=== PATIENT | female | born 1940 | race Caucasian/White ===

== ENCOUNTER 2023-05-16 07:25 | Emergency (ER) | payer OTHER, SELFPAY ==
[2023-05-16 07:29] VITALS: BP 150/74; PULSE 81; RESP 18; TEMP 36.8; O2SAT 97; BMI 23.8
--- NOTE | 2023-05-16 07:35 | XR_ITS ---
The [address] [address] Patient Name: LILLIANA MARQUEZTER MRN: [id number] date: 1940 Sex: F Assigned Patient Location: ER Current Patient Location: ER Accession/Order Number: [id number] Exam Date: 05/16/2023 07:50 Report Date: 05/16/2023 08:17 At the request of: RIVAS PADILLA Procedure: XR foot RT min 3V PROCEDURE: XR foot RT min 3V DATE: 05/16/2023 6:50 AM CDT COMPARISONS: None CLINICAL INDICATION: fall, foot injury FINDINGS: There is an irregular, essentially nondisplaced transverse fracture of the base of fifth metatarsal.. XR/XR foot RT min 3V IMPRESSION: Findings consistent with an essentially nondisplaced base of the fifth metatarsal fracture. . Electronically authenticated by: ROSALINO HOWE Date: 05/16/2023 08:17
--- NOTE | 2023-05-16 07:35 | XR_ITS ---
The [address] [address] Patient Name: LILLIANA BELL MRN: [id number] date: 1940 Sex: F Assigned Patient Location: ER Current Patient Location: ER Accession/Order Number: [id number] Exam Date: 05/16/2023 07:50 Report Date: 05/16/2023 08:15 At the request of: RIVAS PADILLA Procedure: XR ankle RT min 3V PROCEDURE: XR ankle RT min 3V DATE: 05/16/2023 6:50 AM CDT COMPARISONS: None CLINICAL INDICATION: fall, ankle injury FINDINGS: There is no evidence of fractures of the ankle. The ankle mortise is intact. There is no evidence of ankle joint effusion On the caudal aspect of these images there is noted a transverse lucency of the base of the fifth metatarsal. This is consistent with basilar fifth metatarsal fracture. XR/XR ankle RT min 3V IMPRESSION: Right ankle radiographs show no abnormalities Based of the fifth metatarsal fracture.. Electronically authenticated by: ROSALINO HOWE Date: 05/16/2023 08:15
--- NOTE | 2023-05-16 07:51 | XR_ITS ---
The [address] [address] Patient Name: LILLIANA BELL MRN: [id number] date: 1940 Sex: F Assigned Patient Location: ER Current Patient Location: ER Accession/Order Number: [id number] Exam Date: 05/16/2023 07:50 Report Date: 05/16/2023 08:20 At the request of: RIVAS PADILLA Procedure: XR knee LT 4V PROCEDURE: XR knee LT 4V DATE: 05/16/2023 6:50 AM CDT COMPARISONS: None CLINICAL INDICATION: FALL FINDINGS: There is no evidence of fractures or other acute osseous abnormalities. There is minimal tricompartmental spurring likely representing minimal left knee degenerative changes. There is no left knee joint effusion. There is slight chondrocalcinosis probably related to degenerative changes. There is slight soft tissue prominence anterior aspect of the knee including anterior to the infrapatellar tendon possibly related to recent trauma. XR/XR knee LT 4V IMPRESSION: Left knee radiographs show no evidence of acute osseous abnormalities. Electronically authenticated by: ROSALINO HOWE Date: 05/16/2023 08:20
[2023-05-16] MEDS: ACETAMINOPHEN 500 MG TABLET 1000 MG PO (08:07)
--- NOTE | 2023-05-16 08:28 | ED.LOWEXI1 ---
HPI - Extremity Injury (Lower) General Chief Complaint: Extremity Injury, Lower Stated Complaint: FELL AND WORRIED ABOUT RT ANKLE Time Seen by Provider: 05/16/23 07:35 Source: patient Mode of arrival: Wheelchair Limitations: no limitations History of Present Illness HPI Narrative: patient tripped and fell yesterday and injured her left knee, right ankle/foot. Nothing taken this morning for pain. No head or neck injury. No LOC. No complaint of back or torso pain. She is most concerned about the right ankle. She also had some mid abdominal discomfort last night but is pain-free now Related Data Allergies Allergy/AdvReac Type Severity Reaction Status Date / Time latex Allergy Unknown Verified 05/16/23 07:36 PFSH PFS Social History Smoking status: Never smoker Exam Narrative Exam Narrative: Nurses note and vital signs reviewed and patient is not hypoxic. afebrile General: The patient appears well and in no apparent distress. Patient is resting comfortably on cart. GCS = 15. Skin: Warm, dry, no pallor noted. Head: Normocephalic, atraumatic Neck: Supple, trachea mid-line. Full ROM and no cervical spinal tenderness. Eyes: PERRLA, EOMI ENT: no oral or facial injury Cardiovascular: Regular Rate and Rhythm Respiratory: Patient is in no distress, no accessory muscle use, lungs are clear to auscultation, no wheezing, rales or rhonchi Chest Wall: no tenderness, no flail chest, contusion, abrasion, or signs of trauma. Back: No thoracic or lumbar tenderness to palpation. Musculoskeletal: Tenderness, swelling and ecchymosis to the left knee at the patella. Pain with patellar manipulation. The remainder of the left knee if unremarkable. Right ankle swelling and tenderness with some ecchymosis to the anterolateral aspect of the joint. Tenderness along the right 5th metatarsal. No ecchymosis or deformity noted there. No mid-foot tenderness. Normal right heel and achilles. No hip/pelvis tenderness, no UE tenderness or swelling. Pulses at femoral, DP, PT, and popliteal were 2+ bilaterally. Moves all extremities in all modalities with expected strength. GI: No ecchymosis, no tenderness to palpation, no masses appreciated. No rebound, guarding, or rigidity noted. Neurological: A&O x4, normal equal electrotype servicer strength, normal finger to nose, normal speech, normal coordination, normal motor, normal sensory. Psychiatric: Cooperative Constitutional Vital Signs, click to edit/add: Last Vital Signs Temp 98.3 F 05/16/23 07:29 Pulse 81 05/16/23 07:29 Resp 18 05/16/23 07:29 BP 150/74 H 05/16/23 07:29 Pulse Ox 97 05/16/23 07:29 O2 Del Method Room Air 05/16/23 07:29 Course Vital Signs Vital signs: Vital Signs Temperature 98.3 F 05/16/23 07:29 Pulse Rate 81 05/16/23 07:29 Respiratory Rate 18 05/16/23 07:29 Blood Pressure 150/74 H 05/16/23 07:29 Pulse Oximetry 97 05/16/23 07:29 Oxygen Delivery Method Room Air 05/16/23 07:29 Temperature 98.3 F 05/16/23 07:29 Pulse Rate 81 05/16/23 07:29 Respiratory Rate 18 05/16/23 07:29 Blood Pressure 150/74 H 05/16/23 07:29 Pulse Oximetry 97 05/16/23 07:29 Oxygen Delivery Method Room Air 05/16/23 07:29 MDM - Extremity Injury (Lower) MDM Narrative Medical decision making narrative: Patient has fracture of the base of the right 5th metatarsal. Ankle and left knee x-rays otherwise negative. ED nurse applied a CAM boot to the patient's right foot/ankle/lower leg. Patient neurovascularly intact afterward. She was referred to Dr Strong for follow up. Tylenol recommended for pain due to her age. Imaging Data left knee xr: Radiologist's impression: Patient Name: LILLIANA BELL MRN: [id number] date: 1940 Sex: F Assigned Patient Location: ER Current Patient Location: ER Accession/Order Number: [id number] Exam Date: 05/16/2023 07:50 Report Date: 05/16/2023 08:20 At the request of: RIVAS PADILLA Procedure: XR knee LT 4V PROCEDURE: XR knee LT 4V DATE: 05/16/2023 6:50 AM CDT COMPARISONS: None CLINICAL INDICATION: FALL FINDINGS: There is no evidence of fractures or other acute osseous abnormalities. There is minimal tricompartmental spurring likely representing minimal left knee degenerative changes. There is no left knee joint effusion. There is slight chondrocalcinosis probably related to degenerative changes. There is slight soft tissue prominence anterior aspect of the knee including anterior to the infrapatellar tendon possibly related to recent trauma. IMPRESSION: Left knee radiographs show no evidence of acute osseous abnormalities. Electronically authenticated by: ROSALINO HOWE Date: 05/16/2023 08:20 xr right ankle: Radiologist's impression: Patient Name: LILLIANA BELL MRN: [facility]:[id number] date: 1940 Sex: F Assigned Patient Location: ER Current Patient Location: ER Accession/Order Number: [id number] Exam Date: 05/16/2023 07:50 Report Date: 05/16/2023 08:15 At the request of: RIVAS PADILLA Procedure: XR ankle RT min 3V PROCEDURE: XR ankle RT min 3V DATE: 05/16/2023 6:50 AM CDT COMPARISONS: None CLINICAL INDICATION: fall, ankle injury FINDINGS: There is no evidence of fractures of the ankle. The ankle mortise is intact. There is no evidence of ankle joint effusion On the caudal aspect of these images there is noted a transverse lucency of the base of the fifth metatarsal. This is consistent with basilar fifth metatarsal fracture. IMPRESSION: Right ankle radiographs show no abnormalities Based of the fifth metatarsal fracture.. Electronically authenticated by: ROSALINO HOWE Date: 05/16/2023 08:15 xr right foot: Radiologist's impression: Patient Name: LILLIANA BELL MRN: [facility]:[id number] date: 1940 Sex: F Assigned Patient Location: ER Current Patient Location: ER Accession/Order Number: [id number] Exam Date: 05/16/2023 07:50 Report Date: 05/16/2023 08:17 At the request of: RIVAS PADILLA Procedure: XR foot RT min 3V PROCEDURE: XR foot RT min 3V DATE: 05/16/2023 6:50 AM CDT COMPARISONS: None CLINICAL INDICATION: fall, foot injury FINDINGS: There is an irregular, essentially nondisplaced transverse fracture of the base of fifth metatarsal.. IMPRESSION: Findings consistent with an essentially nondisplaced base of the fifth metatarsal fracture. . Electronically authenticated by: ROSALINO HOWE Date: 05/16/2023 08:17 Discharge Plan Discharge Chief Complaint: Extremity Injury, Lower Clinical Impression: Closed fracture of base of fifth metatarsal bone of right foot, Contusion of knee, left, Sprain of ankle, right Patient Disposition: Home, Self-Care Time of Disposition Decision: 08:31 Mode of Transportation: Private Vehicle Instructions: Ankle Sprain (ED), Foot Fracture in Adults (ED), Contusion in Adults (ED), P.R.I.C.E. Treatment (ED) Stand Alone Forms: Portal Instructions Referrals: Jeffery Strong DPM [Physician] - As soon as possible
== END 2023-05-16 08:47 | disposition home or self-care (01) ==
PROVIDERS: Emergency Provider Emergency Medicine; PCP Family Medicine
DX: S92.351A Displaced fracture of fifth metatarsal bone, right foot, initial encounter for closed fracture (principal); S93.401A Sprain of unspecified ligament of right ankle, initial encounter; S80.02XA Contusion of left knee, initial encounter; W01.0XXA Fall on same level from slipping, tripping and stumbling without subsequent striking against object, initial encounter
CPT/HCPCS: 73564; 73610; 73630; 99284

== ENCOUNTER 2023-06-09 10:20 | Outpatient (OUT) | payer OTHER, SELFPAY ==
--- NOTE | 2023-06-09 | XR_ITS ---
The [address] [address] Patient Name: LILLIANA MARQUEZTER MRN: [id number] date: 1940 Sex: F Assigned Patient Location: [facility] Current Patient Location: [facility] Accession/Order Number: [id number] Exam Date: 06/09/2023 10:30 Report Date: 06/09/2023 13:31 At the request of: ISAURO TITUS Procedure: XR ankle RT min 3V PROCEDURE: XR ankle RT min 3V DATE: 06/09/2023 9:30 AM CDT COMPARISONS: 05/16/2023. CLINICAL INDICATION: RIGHT ANKLE PAIN FINDINGS: There is no evidence of fractures or other osseous abnormalities of the ankle. Slightly distracted base of the fifth metatarsal fracture is again identified. Ankle mortise is intact. XR/XR ankle RT min 3V IMPRESSION: Right ankle radiographs are stable from previous exam Electronically authenticated by: ROSALINO HOWE Date: 06/09/2023 13:31
--- NOTE | 2023-06-09 | XR_ITS ---
The [address] [address] Patient Name: LILLIANA MARQUEZTER MRN: [id number] date: 1940 Sex: F Assigned Patient Location: [facility] Current Patient Location: [facility] Accession/Order Number: [id number] Exam Date: 06/09/2023 10:30 Report Date: 06/09/2023 13:29 At the request of: ISAURO TITUS Procedure: XR foot RT min 3V PROCEDURE: XR foot RT min 3V DATE: 06/09/2023 9:30 AM CDT COMPARISONS: 05/16/2023 CLINICAL INDICATION: RIGHT FOOT PAIN FINDINGS: The irregular essentially nondisplaced transverse fracture base of the fifth metatarsal is again identified. The fracture site is slightly more widened than on previous exam. I estimate approximately 2 mm of distraction where as there was only 1 mm distraction previously. There is no displacement at the fracture site. There is no definite callus formation identified. XR/XR foot RT min 3V IMPRESSION: The fracture site is slightly more distracted on today's exam than on previous exam with no definite callus formation identified. No other abnormalities and no other new abnormalities identified. Electronically authenticated by: ROSALINO HOWE Date: 06/09/2023 13:29
== END 2023-06-09 10:21 | disposition home or self-care (01) ==
LOC: RAD 10:20
PROVIDERS: PCP Physician Assistant; Visit Provider Podiatrist Foot & Ankle Surgery
DX: S92.354A Nondisplaced fracture of fifth metatarsal bone, right foot, initial encounter for closed fracture (principal); M25.571 Pain in right ankle and joints of right foot
CPT/HCPCS: 73610; 73630

== ENCOUNTER 2023-06-30 13:45 | Outpatient (OUT) | payer OTHER, SELFPAY ==
--- NOTE | 2023-06-30 | XR_ITS ---
The [address] [address] Patient Name: LILLIANA Pineda RAY MRN: [id number] date: 1940 Sex: F Assigned Patient Location: [facility] Current Patient Location: RAD Accession/Order Number: [id number] Exam Date: 06/30/2023 10:22 Report Date: 06/30/2023 11:13 At the request of: DEBBIE RODRIGUEZ Procedure: XR ankle RT min 3V STUDY: XR ankle RT min 3V, XR foot RT min 3V, [id number], [id number] HISTORY: LEFT ANKLE PAIN COMPARISON: Right ankle and foot x-rays 06/09/2023. FINDINGS: Mildly distracted avulsion-type transverse fracture of the base of the right fifth metatarsal demonstrates proximally 2.4 mm of distraction (as measured on the lateral view), similar compared with 06/09/2023. There has been slight increased callus formation compared with the prior exam. No new or worsening osseous abnormality. An accessory navicular is present. No lucent lesion of the talar dome. XR/XR ankle RT min 3V IMPRESSION: Slight increased callus formation about the mildly distracted right fifth metatarsal fracture. Degree of distraction is similar. Electronically authenticated by: GEOVANNY BRYANT Date: 06/30/2023 11:13
--- NOTE | 2023-06-30 | XR_ITS ---
The [address] [address] Patient Name: LILLIANA Pineda RAY MRN: [id number] date: 1940 Sex: F Assigned Patient Location: [facility] Current Patient Location: RAD Accession/Order Number: [id number] Exam Date: 06/30/2023 10:22 Report Date: 06/30/2023 11:13 At the request of: DEBBIE RODRIGUEZ Procedure: XR foot RT min 3V STUDY: XR ankle RT min 3V, XR foot RT min 3V, [id number], [id number] HISTORY: LEFT ANKLE PAIN COMPARISON: Right ankle and foot x-rays 06/09/2023. FINDINGS: Mildly distracted avulsion-type transverse fracture of the base of the right fifth metatarsal demonstrates proximally 2.4 mm of distraction (as measured on the lateral view), similar compared with 06/09/2023. There has been slight increased callus formation compared with the prior exam. No new or worsening osseous abnormality. An accessory navicular is present. No lucent lesion of the talar dome. XR/XR foot RT min 3V IMPRESSION: Slight increased callus formation about the mildly distracted right fifth metatarsal fracture. Degree of distraction is similar. Electronically authenticated by: GEOVANNY BRYANT Date: 06/30/2023 11:13
== END 2023-06-30 13:46 | disposition home or self-care (01) ==
LOC: RAD 13:45
PROVIDERS: Visit Provider Podiatrist Foot & Ankle Surgery
DX: S92.354A Nondisplaced fracture of fifth metatarsal bone, right foot, initial encounter for closed fracture (principal); M25.579 Pain in unspecified ankle and joints of unspecified foot
CPT/HCPCS: 73610; 73630

== ENCOUNTER 2023-07-28 10:03 | Outpatient (OUT) | payer OTHER, SELFPAY ==
--- NOTE | 2023-07-28 | XR_ITS ---
The [address] [address] Patient Name: LILLIANA MARQUEZTER MRN: [id number] date: 1940 Sex: F Assigned Patient Location: [facility] Current Patient Location: Accession/Order Number: [id number] Exam Date: 07/28/2023 10:05 Report Date: 07/29/2023 10:26 At the request of: ISAURO TITUS Procedure: XR foot RT min 3V PROCEDURE: XR foot RT min 3V HISTORY: RIGHT FOOT PAIN COMPARISON: XR foot right 06/30/2023, 05/16/2023 FINDINGS: BONES:Persistent fracture line at base of fifth metatarsal without callus formation or significant increase in density. Minimal distraction, but otherwise normal alignment is maintained. SOFT TISSUES:No visible soft tissue swelling. EFFUSION:None visible. OTHER: Negative. XR/XR foot RT min 3V IMPRESSION: 1. Stable appearance of the base of fifth metatarsal fracture with incomplete osseous healing; suspect very slow ossification of the fracture line. Electronically authenticated by: ZOYA MATSON Date: 07/29/2023 10:26
== END 2023-07-28 10:04 | disposition home or self-care (01) ==
LOC: RAD 10:03
PROVIDERS: Visit Provider Podiatrist Foot & Ankle Surgery
DX: M79.671 Pain in right foot (principal); S92.351D Displaced fracture of fifth metatarsal bone, right foot, subsequent encounter for fracture with routine healing
CPT/HCPCS: 73630

== ENCOUNTER 2025-01-01 14:28 | Outpatient (OUT) | payer OTHER, SELFPAY ==
[2025-01-01 15:10] LABS: Albumin Level 4.3 g/dL (3.4-5.0); Anion Gap 13.6; BUN Creatinine Ratio 26.3; Calcium 9.2 mg/dL (8.5-10.1); Carbon Dioxide 28.8 mmol/L (21.0-32.0); Chloride 101 mmol/L (98-107); Estimated GFR (African America 53 (>=60 mL/min/1.73m^2); Estimated GFR (Non-African Ame 44 (>=60 mL/min/1.73m^2); Glucose 111 mg/dL (74-106); Phosphorus 3.3 mg/dL (2.6-4.7); Potassium 4.4 mmol/L (3.5-5.1); Sodium 139 mmol/L (136-145)
== END 2025-01-01 14:29 | disposition home or self-care (01) ==
PROVIDERS: PCP Family Medicine; Visit Provider Internal Medicine
DX: M81.0 Age-related osteoporosis without current pathological fracture (principal); E55.9 Vitamin D deficiency, unspecified
CPT/HCPCS: 36415; 80069; 82306

== ENCOUNTER 2025-06-28 08:52 | Outpatient (RCR) | payer MEDICARE, SELFPAY | END 2025-07-24 07:01 | disposition home or self-care (01) | LOC: PT 08:52 | PROVIDERS: PCP Family Medicine; Visit Provider Family Medicine | DX: R26.89 Other abnormalities of gait and mobility (principal) | CPT/HCPCS: 97110; 97112; 97162; 97530 ==

== ENCOUNTER 2025-08-07 09:50 | Outpatient (OUT) | payer MEDICARE, SELFPAY ==
--- OUTSIDE RECORDS SUMMARY | 2025-08-01 03:50 | XMS_ITS | Continuity of Care Document ---
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 Role Phone Abiel Davison DO Primary Care Provider [phone] Abiel Davison DO Attending Provider Maxim Vela MD Attending Provider Maxim Vela MD Referring Provider Care Teams Patient Care Team Team Status: Active Member Role/Relationship Status Dates Abiel Davison DO Primary Care Provider Active Visit Care Team Team Status: Inactive Member Role/Relationship Status Dates Abiel Davison DO Primary Care Provider Active S tart: May 03, 2025 End: May 03, 2025DaHarish Zheng ProviderActiveStart: May 03, 2025 End: May 03, 2025 Visit Care Team Team Status: Inactive Member Role/Relationship Status Dates Abiel Davison DO Primary Care Provider Active S tart: May 10, 2025 End: May 10, 2025Harish Johnson ProviderActiveStart: May 10, 2025 End: May 10, 2025 Visit Care Team Team Status: Inactive Member Role/Relationship Status Idalmis Davison DO Primary Care Provider Active S tart: July 10, 2025 End: July 10hmMarilu Simental ProviderActiveStart: July 10, 2025 End: July 10, 2025 Visit Care Team Team Status: Active Member Role/Relationship Status Idalmis Davison DO Primary Care Provider Active S tart: July 31, 2025 Marystefanie Sanchzegh MDAttending ProviderActiveStart: July 31, 2025 JustinaQuique Dorado ProviderActiveStart: July 31, 2025 Patient Care Team Team Status: Inactive Member Role/Relationship Status Dates Abiel Davison DO Primary Care Provider Active S tart: August 01, 2025 End: August 01, 2025Daraulito Davison DOAttyanet ProviderActiveStart: August 01, 2025 End: August 01, 2025 Chief Complaint and Reason for Visit Chief Complaint Admit Date r35.1 e53.8 z79.899 e78.5 r35.1 r63.5 r7 3.9 May 03, 2025 8:16am review labs May 10, 2025 10: 18am See order July 10, 2025 7: 44am M81.0 July 31, 2025 1 0:08am elevated BP August 01, 2025 8 :02am Reason for Visit Admit Date Balance disorder May 10, 2025 10: 18am Depression May 10, 2025 10: 18am Hypercalcemia May 10, 2025 10: 18am Hyperglycemia May 10, 2025 10: 18am Hyperlipidemia May 10, 2025 10: 18am Hypertension May 10, 2025 10: 18am Osteoporosis May 10, 2025 10: 18am Other abnormal blood chemistry May 10:18am Vitamin B12 deficiency May 10, 2025 10:18am Balance disorder August 01, 2025 8 :02am Hypertension August 01, 2025 8 :02am Irritable bowel syndrome with diarrhea O ctober 2024 8:02am Osteoporosis August 01, 2025 8 :02am Allergies, Adverse Reactions, Alerts Allergen Type Severity Reaction Last Updated Verified Status amoxicillin Allergy Unknown rash on abdomen August 01, 2025 8:05am Yes Active clavulanic acid Allergy Unknown rash on abdomen Octo keren 2024 8:05am Yes Active latex Allergy Unknown Rash, ? potenti al allergy August 01, 2025 8:05am Yes Active lidocaine Allergy Unknown eye's swelled shut Octobe r 2024 8:05am Yes Active Penicillins Allergy Unknown rash August 01, 2025 8:05am Yes Active Social History Smoking Status Status Start Date End Date Date of Observa tion Ex-smoker (finding) May 10, 2025 10:25am Observation Status Observation Response Date of Response Legal Sex Female (finding) [facility] 1940 Family History Relationship Condition Age at Onset Recorded Date/T tom mother Polyp of colon Unknown sisterPolyp of colonUnknowngrandparentDeceasedUnknowngrandparentDeceasedUnknown grandparentDeceasedUnknowngrandparentDeceasedUnknownmotherHistory of stroke UnknownDeceasedUnknownsisterPolyp of colonUnknown Problems Active Problems Problem Diagnosis/Recorded Date Onset Date Stat us Dizziness April 27, 2024 10:19am Unknown Acti ve Light-headed feeling April 27, 2024 10:15am Unknown Active Vitamin B12 deficiency April 27, 2024 9:54am Unknown Active Osteoporosis April 26, 2024 3:13pm Unknown Activ e Depression April 26, 2024 3:13pm Unknown Activ e Diarrhea October 25, 2024 2:35pm Unknown Ac tive Hyperglycemia April 27, 2024 9:54am Unknown Acti ve Hyperlipidemia April 26, 2024 3:13pm Unknown Act leeann Intermittent abdominal pain October 25, 2024 2:35pm Unknown Active Microscopic colitis October 25, 2024 4:13pm Unknown Active Other abnormal blood chemistry May 10, 2025 10:50a m Unknown Active Irritable bowel syndrome with diarrhea April 26, 2024 3:15pm Unknown Active Balance disorder May 10, 2025 10:34am Unknown Active Encounter for long-term (cur rent) use of other medications May 19, 2024 9:41am Unknown Active Hypertension May 22, 2022 11:01am Unknown Ac tive Constipation June 19, 2024 9:46am Unknown Active Vitamin D deficiency April 26, 2024 3:13pm Unknown Active Hypercalcemia May 10, 2025 10:37am Unknown Ac tive Medications Medication Status Dose Units Route Directions Qty Days Refills S tart Date Stop Date End Date Reason(s) Instructions Adherence Terbinafine Hcl 250 mg tablet Discontinued 250 MG PO Daily 30 0March 2023 12:00amJuly 2023 9:43amSertraline 50 mg tablet Discontinued0.ROUTE.FPKFNGC956Vwy 2023 9:28amDecember 2023 10:18am TAKE ONE TABLET BY MOUTH ONCE DAILYAtorvastatin 10 mg kkhshoKqgknzfyvnql23RZWV Wnzpg12447Dlqy 2023 9:52amMarch 2024 12:05pmLisinopril 20 mg tablet Oklnou84IVSJQwtws290Lyuykqd 2023 10:48amComplies with drug therapy Sertraline 50 mg tabletDiscontinued0.ROUTE.OIVMLGU305Zxhjaxkh 11th, 2024 10:18am June 21, 2025 10:17amTAKE ONE TABLET BY MOUTH ONCE DAILYAtorvastatin 10 mg ysrdmbVxsuwc18BEYJ.TIDRJMC26257Wwjng 2024 12:04pm10 mg orally three days a week;Complies with drug therapySertraline 50 mg tabletDiscontinued0.ROUTE .XXZZQFQ853Lydfdvedd 18th, 2025 10:17amOctober 2024 8:25amTAKE ONE TABLET BY MOUTH ONCE DAILYAtorvastatin 10 mg noolaiFvctrlksjqmo38FZQJWlzgpEhjbat 2021 12:00amJuly 2023 9:52amLisinopril 10 mg eqcjvpGaswjrytzzgh77MSUIYesvc May 22, 2022 12:00amJuly 2023 10:03amSertraline 50 mg tablet Rqptkukjhvrg34UTUZVtgsoIwwiag 2021 12:00amMay 2023 9:28am Cyanocobalamin (Vitamin B-12) 5,000 mcg yerkzxpFgslbnrobtbw2788TMJUZNawomJazx 2023 12:00amJuly 2023 10:09amvitamin d 3ActivePOJuly 2023 12:00amComplies with drug therapyelderberryActivePOJuly 2023 12:00am Complies with drug therapyCalcium Phosphate-Vitamin D3 250 mg-10 mcg (400 unit) tablet,chewableDiscontinuedTABPOAs DirectedJuly 2023 12:00amOctober 2024 8:19amFreeTextSig: as directed Orally; Note: Source Status: Taking; Provider: Saman Beebe ( )Lisinopril 20 mg jwyxjuUfehsxzdcsob09ZD LZExqty592Dngh 2023 12:00amOctober 2023 10:48amCyanocobalamin (Vitamin B-12) 5,000 mcg zxydfemPabgwcedeyba1994FDOZS.COMPLEXJuly 2023 10:09amJanuary 2024 10:32amtake B12 three days a weekCholecalciferol (Vitamin D3) 125 mcg (5,000 unit) cxtfyltLbdqwv055PANWCWpsqzWboemvd 2024 12:00amComplies with drug therapyCyanocobalamin (Vitamin B-12) 5,000 mcg capsule Lxdmyn0086JGUZN.COMPLEXOctober 2024 8:17am5,000 mcg orally take B12 5 days a weekComplies with drug therapyInulin (Fiber Gummies) 1.7 gram tablet,chewable ActiveGMPOOctober 2024 12:00amComplies with drug therapySertraline 50 mg tkopfhQmpidt86TSUWJvvcyTwsqsnj 2024 8:25amUnknownDicyclomine 20 mg tablet Luqjvu48PEGRTszi580569Kkqfbgv 2024 1:00amComplies with drug therapy Cyanocobalamin (Vitamin B-12) 5,000 mcg iogpistTjzwxirtxamy3322ZTDRU.NNFORWH575 May 10, 2025 10:54amOctober 2024 8:19am5,000 mcg orally take B12 every other day; Immunizations Immunization Event Date Not Given Reason Dose Number 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 Number Reason(s) Given Vaccine Information Statement (VIS) Detail Administration Location COVID-19 mRNA, Comirnaty ([employer]) October 31, 2020 COVID-19 mRNA, Comirnaty ([employer])November 21OVID mRNA, Comirnaty ([employer])July 10OVID19 mRNA, Comirnaty ([employer])March 03OVI Comirnaty ([employer]) Tri-Sucrose +March 03 mRNA Bivalent Booster ([employer])July 09OVID-19 (PFIZER) 12Y and olderSeptember OVID-19 (PFIZER) 12Y and olderSeptember 2023Fluzone TIV High-Dose 65YR+July 03, 2024Fluzone QIV High-Dose 65YR+June 18, 2021Fluzone QIV High-Dose 65YR+July 09, 2022Influenza, trivalent July 16, 2020Influenza vaccine, quadrivalent, adjuvantedSeptember neumococcal Conjugate Vaccine, 13 valentSeptember 2015Pneumococcal Polysacc. Vaccine, 23 valentOctober 2014Quadrivalent InfluenzaNovember 2014RSV, preF3, adj, pfNovember 2022Tetanus, Diphtheria adult, 5 Lf pres free absNov2012Tetanus, Diphtheria adult, 5 Lf pres free abs December 23, 2022Tetanus, Diphtheria, Pertussis (Tdap)August 30, 2013 Trivalent Influenza VaccineSeptember 2015Trivalent Influenza Vaccine August 03, 2019Trivalent Influenza VaccineOctober 2019Trivalent Influenza VaccineSeptember 2020 Procedures Procedure Date Performed Status Urine Culture May 03, 2025 completed Relevant Diagnostic Tests and/or Laboratory Data Laboratory Results Test Collection Date/Time Result Date/Time Result Interpretation Reference Range Result Comment Performing Site Corrected White Blood Count May 03, 2025 8:17am May 03, 2025 3:30pm 7.0 10*3/uL 3.8-11.[id number] [address] [facility] 25059Tmkiphtgbsy WBC CountJuly 2024 8:17amJuly 2024 3:30pm7.0 10*3/uL3.8-11.6F[facility] [id number] [address] [facility] 05677Lrj Blood CountJuly 2024 8:17amJuly 2024 3:30pm3.87 10*6/uL3.60-5.00[facility] [id number] [address] [facility] 22780BlefgmdyzcTqxy 2024 8:17amJuly 2024 3:30pm12.1 g/dL 11.8-15.4F[facility] [id number] [address] [facility] 12722XbqbppgcogSkim 2024 8:17amJuly 2024 3:30pm37.6 % 34.0-46.4F[facility] [id number] [address] [facility] 14715Qfss Corpuscular VolumeJuly 2024 8:17amJuly 2024 3:30pm97.2 rP39-493CmnxojpgyJ.[facility]. [facility] [id number] [address] [place] [address] 96469Cjuw Corpuscular HemoglobinJuly 2024 8:17amJuly 2024 3:30pm31.4 pg24.7-34.3F[facility] [id number] [address] [place] [address] 92660Bwvn Corpuscular Hemoglobin ConcentJuly 2024 8:17amJuly 2024 3:30pm32.3 g/dL32.0-35.0[facility] [id number] [address] [place] [address] 62980Tap Cell Distribution WidthJuly 2024 8:17amJuly 2024 3:30pm14.0 %11.9-15.3F[facility] [id number] [address] [place] [address] 80069Osmnzcts CountJuly 2024 8:17amJuly 2024 3:75my715 10*3/gW731-093VmgwlvqxeJ.W. [facility] [id number] [address] [place] [address] 95333Gvan Platelet VolumeJuly 2024 8:17amJuly 2024 3:30pm8.7 fL6.3-10.7F[facility] [id number] [address] [place] [address] 07938Xfgfrnbiahm (%) (Auto)May 03, 2025 8:17amJuly 2024 3:30pm53.9 %.[facility] [id number] [address] [facility] 71342Wzepwskaldu (%) (Auto)May 03, 2025 8:2024 3:30pm29.7 %.[facility] [id number] [address] [facility] 43119Ofwkovwaf (%) (Auto)May 03, 2025 8:2024 3:30pm8.5 %.[facility] [id number] [address] [facility] 25375Rxiwolmmjeb (%) (Auto)May 03, 2025 8:2024 3:30pm7.2 %.[facility] [id number] [address] [place] [address] 96057Weojurpfw (%) (Auto)May 03, 2025 8:2024 3:30pm0.7 %.[facility] [id number] [address] [facility] 68134Gfbqhjhlt RBC Relative Count (auto)May 03, 2025 8:2024 3:30pm0.0 /100{WBC}0-0.5F[facility] [id number] [address] [place], [place] [address]Neutrophils # (Auto)May 03, 2025 8:2024 3:30pm3.8 10*3/uL1.8-7.7F[facility] [id number] [address] [place] [address] 83431Zprofkjurnv # (Auto)May 03, 2025 8:2024 3:30pm2.1 10*3/uL1.00-4.8[facility] [id number] [address] [facility] 65286Tpzsehvtx # (Auto)May 03, 2025 8:2024 3:30pm 0.6 10*3/uL0.0-0.8[facility] [id number] [address] [place], [place] [address]Eosinophils # (Auto)May 03, 2025 8:17amJuly 2024 3:30pm0.5 10*3/uLAbove high normal0.0-0.45[facility] [id number] [address] [place] [id number] # (Auto)May 03, 2025 8:17amJuly 2024 3:30pm 0.1 10*3/uL0.0-0.2F[facility] [id number] [address] [facility] 13168Ontim ColorJuly 2024 8:25amJuly 2024 1:53pm Light-yellowYellowJ.W. [facility] [id number] [address] [facility] 37758Owjqd AppearanceJuly 2024 8:25amJuly 2024 1:53pm ClearClearFSub[facility] [id number] [address] [id number] Specific GravityJuly 2024 8:25amJuly 2024 1:53pm1.0171.001-1.030[facility] [id number] [address] [facility] 10611Stbyn pHJuly 2024 8:25amJuly 2024 1:53pm6.55.0-9.0 [facility] [id number] [address] [facility] 80885Miape Leukocyte EsteraseJuly 2024 8:25amJuly 2024 1:53pmNegativeNegativeJ.[facility]. [facility] [id number] [address] [facility] 45632Ydxgy NitriteJuly 2024 8:25amJuly 2024 1:53pm NegativeNegativeJ.W. [facility] [id number] [address] [facility] 69716Iazfh ProteinJuly 2024 8:25amJuly 2024 1:53pm Negative mg/dLNegativeJ.W. [facility] [id number] [address] [place] [id number] Glucose (UA)May 03, 2025 8:25amJuly 2024 1:53pm Normal mg/dLNormSum[facility] [id number] [address] [facility] 12914Ggbim KetonesJuly 2024 8:25amJuly 2024 1:53pm NegativeNegativeJ.W. [facility] [id number] [address] [facility] 22532Gwrix UrobilinogenJuly 2024 8:25amJuly 2024 1:53pm Normal mg/dLNormalJ.W. [facility] [id number] [address] [facility] 91759Gmpcl BilirubinJuly 2024 8:25amJuly 2024 1:53pm NegativeNegativeJ.W. [facility] [id number] [address] [place] [address] 18369Wcwkh Occult BloodJuly 2024 8:25amJuly 2024 1:53pm NegativeNegativeJ.W. [facility] [id number] [address] [place] [address] 13146Sgpkjrv LevelJuly 2024 8:17amJuly 2024 1:96xw834 mg/dLAbove high iakbop05-514SFL recommended reference rangeRandom Glucose Reference Range is dependent on time and content of last meal. Glucose of more than 200 mg/dL in a nonstressed, ambulatory subject supports the diagnosisof Diabetes Mellitus.[facility] [id number] [address] [facility] 97446Thqkbgr LevelOctober 2024 7:45amOctober 2024 2:45pm 131 mg/dLAbove high nbsios75-844XAC recommended reference rangeRandom Glucose Reference Range is dependent on time and content of last meal. Glucose of more than 200 mg/dL in a nonstressed, ambulatory subject supports the diagnosisof Diabetes Mellitus.[facility] [id number] [address] [facility] 29641Qcdge Urea NitrogenJuly 2024 8:17amJuly 2024 1:55pm 22 mg/dL7-[facility] [id number] [address] [place] [address] 18713Xtvit Urea NitrogenOctober 2024 7:45amOctober 2024 2:45pm28 mg/dLAbove high normal7-25[facility] [id number] [address] [facility] 88275FspoijcznpLbgq 2024 8:17amJuly 2024 1:55pm1.07 mg/dL0.60-1.20[facility] [id number] [address] [facility] 71810JmphtgxblaQfgxflb 2024 7:45amOctober 2024 2:45pm0.90 mg/dL0.60-1.20[facility] [id number] [address] [facility] 28195Aqklhnvqh GFR (CKD-EPI)May 03, 2025 8:17amJuly 2024 1:55pm51.862 mL/MinJ.W. [facility] [id number] [address] [place] [id number] GFR (CKD-EPI)July 10, 2025 7:45amOctober 2024 2:45pm> 60.0 mL/MinJ.W. [facility] [id number] [address] [place] [address] 42629Ezffwa LevelJuly 2024 8:17amJuly 2024 1:45cn840 mmol/K644-772AhcdhfekkJ.[facility]. [facility] [id number] [address] [place], [place] [address]Sodium LevelOctober 2024 7:45amOctober 2024 2:40hb894 mmol/U313-333DlyrskofbJ.[facility]. [facility] [id number] [address] [facility] 98956Ysecncuxe LevelJuly 2024 8:17amJuly 2024 1:55pm4.5 mmol/L3.5-5.1F[facility] [id number] [address] [facility] 51254Wkmekhmst LevelOctober 2024 7:45amOctober 2024 2:45pm 4.6 mmol/L3.5-5.1F[facility] [id number] [address] [facility] 27031Funsksia LevelJuly 2024 8:17amJuly 2024 1:72ng608 mmol/Y64-714XugvcmyylJ.[facility]. [facility] [id number] [address] [facility] 75914Ktdrjxnt LevelOctober 2024 7:45amOctober 2024 2:45pm 102 mmol/D13-442UolsogptfJ.[facility]. [facility] [id number] [address] [facility] 40949Hxqnqr Dioxide LevelJuly 2024 8:17amJuly 2024 1:55pm32.5 mmol/LAbove high hoixmb65.0-31.0[facility] [id number] [address] [facility] 74221Wgzubs Dioxide LevelOctober 2024 7:45amOctober 2024 2:45pm27.5 mmol/L21.0-31.0[facility] [id number] [address] [facility] 52784Txiwc GapJuly 2024 8:17amJuly 2024 1:55pm12.0 mEq/L 6.0-15.0[facility] [id number] [address] [facility] 40609Eixdq GapOctober 2024 7:45amOctober 2024 2:45pm13.1 mEq/L6.0-15.0[facility] [id number] [address] [place] [address] 41949Lzqvyab LevelJuly 2024 8:17amJuly 2024 1:55pm10.9 mg/dLAbove high normal8.6-10.3F[facility] [id number] [address] [facility] 43476Hppwcil LevelOctober 2024 7:45amOctober 2024 2:45pm 9.0 mg/dL8.6-10.3F[facility] [id number] [address] [facility] 35178Wgyarnynvb LevelOctober 2024 7:45amOctober 2024 2:45pm3.5 mg/dL2.5-4.5FSub[facility] [id number] [address] [facility] 91539Viorm ProteinJuly 2024 8:17amJuly 2024 1:55pm6.8 g/dL6.4-8.9[facility] [id number] [address] [facility] 95395OkhjjorQvlp 2024 8:17amJuly 2024 1:55pm4.6 g/dL 3.5-5.7F[facility] [id number] [address] [facility] 82135KndgcdkCokxpwo 2024 7:45amOctober 2024 2:45pm4.6 g/dL 3.5-5.7F[facility] [id number] [address] [facility] 27436BtwjnqlaPcrj 2024 8:17amJuly 2024 1:55pm2.2 g/dL [facility] [id number] [address] [facility] 97913Sazimca/Globulin RatioJuly 2024 8:17amJuly 2024 1:55pm2.1F[facility] [id number] [address] [facility] 77359Xmgxa BilirubinJuly 2024 8:17amJuly 2024 1:55pm0.5 mg/dL0.3-1.0[facility] [id number] [address] [place] [address] 20265Gvmryhxtm Amino Transf (AST/SGOT)May 03, 2025 8:17amJuly 2024 1:55pm12 U/LBelow low gybcqh49-21DuvdzsdndJ.W. [facility] [id number] [address] [facility] 03187Oiemmwx Aminotransferase (ALT/SGPT)May 03, 2025 8:17amJuly 2024 1:55pm8 U/L7-52[facility] [id number] [address] [place] [address] 49815Bludyqmm PhosphataseJuly 2024 8:17amJuly 2024 1:55pm42 U/N58-853SchebiykzJ.W. [facility] [id number] [address] [place], [place] [address] [place] [address]Ppfxsdmtcyg LevelJuly 2024 8:17amJuly 2024 1:55pm 224 mg/dLAbove high epcwly471-055Ujnl less than 200 mg/dl low riskChol 201-239 mg/dl borderline riskChol 240 mg/dl and greater high riskJ.W. [facility] [id number] [address] [facility] 47572VAW CholesterolJuly 2024 8:17amJuly 2024 1:74ik840 mg/dLAbove high cuanku75-12IKK CHOL ATP-III CLASSIFICATION Cardiovascular RiskHDL > or equal to 60 mg/dL LOWHDL < 40 mg/dL HIGHJ.W. Ruby Memorial Hospital Ctr [id number] [address] [facility] 66863Cxyptcnabcuos LevelJuly 2024 8:17amJuly 2024 1:55pm 71 mg/dL0-149TRIG ATP III CLASSIFICATIONTRIG less than 150 mg/dL NormalTRIG 150- 199 mg/dL Borderline highTRIG 200-500 mg/dL High TRIG greater than 500 mg/dL Very highStandard traceable to the Center for Disease Conrtrol and Prevention (CDC) test method.[facility] [id number] [address] [facility] 29991FAB Cholesterol, CalculatedJuly 2024 8:July 2024 1:93ey748 mg/dLAbove high normal0-100LDL ATP III CLASSIFICATIONLDL less than 100 mg/dL OptimalLDL 100-129 mg/dL Near or above seevditLRI233-670 mg/dL Borderline highLDL 160-189 mg/dL HighLDL greater than 189 mg/dL Very high [facility] [id number] [address] [facility] 06816SGWB CholesterolJuly 2024 8:July 2024 1:55pm14 mg/dLJ.[facility]. [facility] [id number] [address] [facility] 48149Rbctyrlqvha/HDL RatioJuly 2024 8:July 2024 1:55pm2.2<5.0[facility] [id number] [address] [facility] 66129Vxzndhh B12 LevelJuly 2024 8:17amJuly 2024 2:22pm 674 pg/nB487-409ZmldoglyrJ.[facility]. [facility] [id number] [address] [facility] 94707PqmjhxJvzz 2024 8:17amJuly 2024 2:21pm8.8 ng/mL>5.9 Folate reference range: >5.9 ng/mlThe WHO technical consultation on folate and vitamin s03pwnpltklajkp has determined that folate concentrations lessthan 4 ng/ml are considered deficient.[facility] [id number] [address] [facility] 88521Euoovrb Stimulating Hormone 3rd GenJuly 2024 8:17aJuly 2024 2:10pm1.50 u[iU]/mL0.45-5.33[facility] [id number] [address] [facility] 7311990-Axzagvh Vitamin D TotalOctober 2024 7:45amOctober 2024 3:15pm35.7 ng/uQ10-854YQVSJDA D STATUS 25(OH)VITAMIN D RANGE (ng/mL) Deficient <20 Insufficient 20 to <36Aabagkppzx64 to 100Reference: Messi MF,Delvis SCHAFER, Brina HAYDEN, et al. Evaluation,treatment, and prevention of vitamin D deficiency; an Endocrine Society clinical practice guideline. JCEM. 2010; 96(7):1911-30.[facility] [id number] [address] [facility] 96354Jfpshsbz Creatinine Clearance (ChemJuly 2024 8:17amJuly 2024 1:55pmN/[facility] [id number] [address] [facility] 79289Mfmvvcqo Creatinine Clearance (ChemOctober 2024 7:45am October 2024 2:45pmN/[facility] [id number] [address] [facility] 09312Eohexnorjj B5jJqso 2024 8:17amAugust 2024 9:50am5.6 %4.3-5.6Increased risk for diabetes: 5.7 - 6.4diabetes: >6.4glycemic control for adults with diabetes: <7.0[facility] [id number] [address] [facility] 11266Rxyerxxzv Average GlucoseJuly 2024 8:17amAugust 2024 9:61ly886 mg/dLJ.W. [facility] [id number] [address] [facility] [address] Microbiology Results Procedure Source Result Collection Date/Time Result Date/Time Result Comment Performing Site Urine Culture Urine 2 Days May 03, 2025 8:25am Aug ust 2024 9:34am [facility] [id number] [address] [facility] [address] Vital Signs Vital Reading Result Reference Range Collection Date/Time Height 63 [in_i] May 10, 2025 10:84jzTnhlom33.78 kgAugust 2024 10:04amBody Temperature 97.3 [degF]97.6-99.0August 2024 10:04amHeart Rate71 /oyl66-550Wwogxu 2024 10:04amOxygen saturation by Pulse mkysrgqv99 %95-100August 2024 10:04amBP Nafcftit624 mm[Hg]100-140August 2024 10:04amBP Ejtvwdqev60 mm[Hg] 60-100August 2024 10:04amBMI (Body Mass Index)23.7 kg/u0Hfmykw2024 10:04amBody Jsmysbjzkpw13.5 [degF]97.6-99.0October 2021 9:20amHeart Rate74 /vqi42-309Uokrzpn 2024 10:44amRespiratory rate18 /hdc04-16Bhtyjlg 2024 10:44amOxygen saturation by Pulse bjpotqvi963 %95-100October 2024 10:44amBP Gjrmfnio693 mm[Hg]100-140October 2024 10:44amBP Ywmlhmsih46 mm[Hg]60-100October 2024 10:07xqJvfvuh31 [in_i]August 01, 2025 8:08am Clnssz11.32 [facility] 2024 8:08amBody Iivirvlkaxm61.7 [degF]97.6-99.0 August 01, 2025 8:08amHeart Rate85 /bjh59-793Jxhkyoo 2024 8:08am Respiratory rate99 /rop43-42Ngtwzfn 2024 8:08amBP Oqdpnrba914 mm[Hg] 100-[facility] 2024 8:46amBP Easbiyydl93 mm[Hg]60-100[facility] 2024 8:46amBMI (Body Mass Index)23.6 kg/d6Mrttwhv 2024 8:08am Advance Directives Advance Directive Response Recorded Date/ Time Advance Directives No August 3:57pm Insurance Providers Guarantor Bibi Pineda Duy Address [address] [place], [place] [address] [address]Dfsjkgz Info.Home Phone: Payer Group Member ID Coverage Type Subscriber Relationship to Subscriber Effective Date Expiration Date [employer] [facility] PFFS Id: [id number] L Duy Id: [id number] [address] [place] [address] [place] [address] Home Phone: Email: [email or web address] Encounter Location(s) Arrival/Admit Date Discharge/Departure Date Discharge/Departure Disposition Provider(s) Departed Clinical -[facility] [place] May 03, 2025 8:16am May 03, 2025 8:17am Discharged to home care or self care (routine discharge) Abiel Davison DO Departed Physician/ Provider Office Visit -[facility] May 10, 2025 10:18am May 10, 2025 11:03am Discharged to home care or self care (routine discharge) Abiel Davison DO Departed Clinical -Lab [place] July 10, 2025 7:44am July 10, 2025 7:45am Discharged to home care or self care (routine discharge) Maxim Vela MD Registered Recurring -Infusion Therapy - O/P July 052024 10:08am RONAK Lakeeparted Physician/Provider Office Visit-[facility]2024 8:02amOctober 2024 8:49amDischarged to home care or self care (routine discharge)Abiel Davison , DO Recent Diagnosis Onset Date Admit Date Balance disorder Unknown May 10 10:18am Depression Unknown May 10, 2025 10:18am Hypercalcemia Unknown May 10, 2025 10:18am Hyperglycemia Unknown May 10, 2025 10:18am Hyperlipidemia Unknown May 10, 2025 10:18am Hypertension Unknown May 10, 2025 10:18am Osteoporosis Unknown May 10, 2025 10:18am Other abnormal blood chemistry Unknown A ugust 2024 10:18am Vitamin B12 deficiency Unknown May 10:18am Balance disorder Unknown August 01, 025 8:02am Hypertension Unknown August 01 8:02am Irritable bowel syndrome with diarrhea Unknown August 01, 2025 8:02am Osteoporosis Unknown August 01 8:02am Assessments Author Abiel Davison [facility] 2024 11:34amThe above note written by ___Bin Bryant____ acting as human recorder, note dictated by Dr. Andrade .I performed the above HPI, ROS, and Examination. I formulated and dictated the treatment plan and was present for entire encounter. Abiel Davison D.O. Plan of Treatment Author Bin Bryant [facility] 2024 8:47amPhysical therapy is over, and she is supposed to do home exercises every other day. She admits she is not very good with self discipline so she may go to the [facility] to keep up with her exercises. She has not fallen. We discussed that in October (2024) her home readings were in the 117 over 70 range. When she would go to the doctors her readings were elevated. She voices that on Wednesday (07/28/25) she went to a Life Screening and she sat and sat and this caused her to become angry and her blood pressure was elevated. She was there for an hour before someone came and got her. She feels this is why her blood pressure was elevated. She started to check her readings at home and only one time she got an elevated systolic reading and her reading in the office today was normal. I do suspect that when she got upset/mad on Wednesday this is what caused her blood pressure to be elevated. I asked her to continue to monitor her blood pressure on her own, if she finds that her readings are consistently elevated in the 140/90 or above she should let me know. I did check her blood pressure myself and got a reading of 130/82. I do not want to adjust any of her medication. She still has diarrhea every day and takes Imodium AD for this. She had been taking Align for this but wonders if she should switch to a drink that may work better for her symptoms. She can try this and see if it works better for her for a few months. She will try this and see how it works. She has a DEXA scan scheduled for 08/06/25 and yesterday 07/30/25 she had a Prolia injection. She did stop her calcium supplement three days prior to the injection and her calcium level was checked and was 9. She had Life Screening testing done on 07/28/25 and voices that the results will be sent to the office. [facility] 10:57amDiscussed blood sugar results with patient today. Glucose is 114. HgA1C is 5.6. She is encouraged to continue to monitor her intake of carbs and sugars. Stay active as tolerated. Her Vitamin B12 is 674. Folate is 8.8. She is not taking any B12 at this time. I would like her to return to taking the B12 but recommend she take the B12 supplement every other day. Her blood pressure is controlled. She continues with the Sertraline, she feels it is working for depression symptoms but admits she gets anxious. She does not feel the dose needs to be adjusted right now. Discussed cholesterol results with patient today. Total is 224. HDL is 102. LDL is 108. Triglycerides are 71. VLDL is 14. I encouraged her to continue to monitor her intake of carbs and sugars. She is doing exercises for her neck. She can continue with those, she is just not to stress her muscle as she should avoid stressing the muscle two days in a row. She would like to continue to do her own exercises before returning to see the physical therapist. If she changes her mind or her balance worsens she should let me know. Her calcium level is high at 10.9. She does continue to see Dr. Vela and will see him in one month. I do want her to show him that her calcium level is 10.9 and see if he would like to do a further work up. I did explain to her that if the calcium level is too high people can feel weird or act abnormally. She gets together with her friends and she voices that no one has mentioned that she has been acting out of her normal. She follows with Dr. Vela for her osteoporosis. She voices that she will see him in one month. She will have lab drawn and then will get her injection for osteoporosis. Discussed her kidney studies with her today. Her BUN is 22. Creatinine is 1.07. EGFR is 51.862. I did recommend that she stay well hydrated with plenty of water daily. Will continue to monitor her kidney studies. Her CO2 level is elevated, likely due to the gold leaf laborer being too strict with the value. She denies waking up gasping for air or having any signs of sleep apnea. Will continue to monitor. Future Tests Future scheduled test information is unavailable Pending Tests Test Name Ordered Date Scheduled Date Comprehensive Metabolic Panel May 10, 2025 1 0:30am 6 Months Future Visits Future appointment information is unavailable Future Procedures Procedure Name Ordered Date Scheduled Date A1C with Estimated Average Glu May 10, 2025 10:30am 6 Months Complete Blood Count Auto Diff May 10, 2025 10:30am 6 Months Lipid Panel May 10, 2025 10:30am 6 Month s Vit. B12/Folate Profile May 10, 2025 10:30am 6 Months Future Medications Future medication information is unavailable Patient Instructions Patient instructions are unavailable Goals Acute Goals Author Authored Date Maintain/increase activity l evels * Understands factors that may lead to activity intolerance * Helps perform self care activities * Maintains maximum range of motion * Increase/regain muscle mass and strength * Maintains VS WNL during activity * Maintain intact skin integrity Updated: [facility]16[facility]2022[facility] 1:19pm
--- OUTSIDE RECORDS SUMMARY | 2025-08-07 09:53 | XMS_ITS | Encounter Summary ---
Author Organization [facility] Address [address] [place] [address] Care Team Providers Care Hob Mill Operator Name Role Phone Abiel Davison MD Primary Care Provider [phone] Reason for Visit * ReasonOnset DateCommentsAdvice Only07/30/2025 Encounter Details DateTypeDepartmentCare Team (Latest Contact Info)Louvvlzwpuc20/27/2025Telephone [facility] [address] [place] [phone] Maxim Vela MD [address] [place] [address] Advice Only Social History Tobacco UseTypesPacks/DayYears UsedDateSmoking Tobacco: FormerCigarettesQuit: 2007Smokeless Tobacco: NeverAlcohol UseStandard Drinks/WeekCommentsYes4 (1 standard drink = 0.6 oz pure alcohol)caffeine: 1-2 cups per dayComments UnknownSex and Gender InformationValueDate RecordedSex Assigned at BirthNot on fileLegal RceEiqoxm10/15/2023 6:35 PM EDTGender IdentityNot on fileSexual OrientationNot on filedocumented as of this encounter Miscellaneous Notes * Telephone Encounter - Mikey Perera - 07/30/2025 1:24 PM EDT Pt left message that she was supposed to have dexascan ordered and it is not in her chart. Could you please make order and I will send it to [facility]? Thank you! documented in this encounter Plan of Treatment DateTypeDepartmentCare Team (Latest Contact Info)Rcqibmicwju96/14/2026 9:30 AM EDTOffice Visit [facility] [address] [place] [phone] Maxim Vela MD [address] [place] [address] 02/14/2026 9:00 AM EDTOffice Visit [facility] [address] [place] [address] Mindy Dove MD [address] [place] [address] documented as of this encounter Visit Diagnoses Not on filedocumented in this encounter Care Teams Team MemberRelationshipSpecialtyStart DateEnd Date Abiel Davison MD [address] [place] [address] [address] [place] [address] PCP - GeneralFamily Medicine12/08/23documented as of this encounter
--- OUTSIDE RECORDS SUMMARY | 2025-08-07 09:53 | XMS_ITS | Encounter Summary ---
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 fracture (Primary Dx) Social History Tobacco UseTypesPacks/DayYears UsedDateSmoking Tobacco: FormerCigarettesQuit: 2007Smokeless Tobacco: NeverAlcohol UseStandard Drinks/WeekCommentsYes4 (1 standard drink = 0.6 oz pure alcohol)caffeine: 1-2 cups per dayComments UnknownSex and Gender InformationValueDate RecordedSex Assigned at BirthNot on fileLegal IapMboolw22/15/2023 6:35 PM EDTGender IdentityNot on fileSexual OrientationNot on filedocumented as of this encounter Plan of Treatment DateTypeDepartmentCare Team (Latest Contact Info)Akfpprqwjde10/14/2026 9:30 AM EDTOffice Visit [facility] [address] [place] [address] Maxim Vela MD [address] [place] [address] 02/14/2026 9:00 AM EDTOffice Visit [facility] [place] [facility] [address] [place] [address] Mindy Dove MD [address] [place] [address] NameTypePriorityAssociated DiagnosesOrder ScheduleDEXA bone densityImaging Routine Age-related osteoporosis without current pathological fracture Expected: 07/30/2025, Expires: 07/30/2026documented as of this encounter Visit Diagnoses Diagnosis Age-related osteoporosis without current pathological fracture- Primary documented in this encounter Care Teams Team MemberRelationshipSpecialtyStart DateEnd Date Abiel Davison MD [address] [place] [address] PCP - GeneralFamily Medicine12/08/23documented as of this encounter
--- OUTSIDE RECORDS SUMMARY | 2025-08-07 09:53 | XMS_ITS | Clinical Summary ---
Author Organization [facility] Address [address] [facility] [place] [address] Care Team Providers Care Key Worker Name Role Phone Abiel Davison MD Primary Care Provider [phone] Allergies Active AllergyReactionsCriticalityNoted IrbtYibxhpdwIerhgduuietea61/10/2023 Other Reaction(s): Unknown Clavulanic Acid10/21/2023 Other Reaction(s): rash on abdomen Vbawuhxuupi37/10/2023 Other Reaction(s): Unknown Aomyoksyzrhp89/10/2023 Other Reaction(s): Unknown PjkdrZlvoSmp02/10/5129Upkkzvzyy91/18/2024 Other Reaction(s): eye's swelled shut PiuagqphtxvTftaSzv85/18/2024 Other Reaction(s): rash on abdomen Medications MedicationSigDispense QuantityRefillsLast FilledStart DateEnd DateStatus sertraline (Zoloft) 50 MG tablet 1 (one) time each day at the same timeActive lisinopril 10 MG tablet 05/10/2023ctive atorvastatin (Lipitor) 10 MG tablet 1 (one) time each day at the same timeActive tolnaftate (Tinactin) 1 % external solution Apply 1 application topically in the morning and 1 application before bedtime. Patient only applying once a day.Active Cyanocobalamin 5000 MCG capsule Take 1 capsule by mouth 1 (one) time each day04/27/2024ctive denosumab (Prolia) 60 MG/ML solution prefilled syringe Inject 60 mg under the skin 1 (one) timeActive Ascorbic Acid (vitamin C) 100 MG tablet Take 1 tablet by mouth DailyActive Active Problems ProblemNoted DateDiagnosed KehbUexopictfto15/01/2024alance qgsxnotx20/28/2024 Encounters DateTypeDepartmentCare QgqnNgpuuaywssc46/27/2025Orders Only [facility] [place] [facility] [address] [place] [address] Maxim Vela MD Age-related osteoporosis without current pathological fracture (Primary Dx) 07/30/2025Telephone [facility] [place] [facility] [address] [place] [address] Maxim Vela MD Advice Only07/17/2025 10:00 AM EDTOffice Visit [facility] [place] [facility] [address] [place] [address] Maxim Vela MD Age-related osteoporosis without current pathological fracture (Primary Dx); Vitamin D xxxevrxtps34/14/2025amboo flowsheet [facility] [address] [place] [address] Maxim Vela MD 07/11/2025Orders Only [facility] [place] [facility] [address] [place] [address] Maxim Vela MD 07/03/2025Telephone [facility] [address] [place] [address] Maxim Vela MD Med Refillfrom Last 3 Months Immunizations ImmunizationAdministration DatesNext DueInfluenza, High-dose Seasonal, Quadrivalent, Preservative Free07/09/2022,06/18/2021Influenza, Seasonal, Quadrivalent, Xloxuvfznm41/19/2023Influenza, injectable, quadrivalent, preservative free08/27/2015Influenza, seasonal, rjjbfvmouk43/13/2020,08/03/2019, 07/03/2016Pneumococcal Conjugate PCV 13007/03/2016Pneumococcal Polysaccharide [id number], recombinant, protein subunit RSVpreF, adjuvant reconstitu, 120mcg/0.5mL, PF (Arexvy)08/13/2023Td (adult), 5 Lf tetanus toxoid, preservative free, onskzgpp29/22/2023,08/30/2013Tdap110/30/2012 Family History Medical HistoryRelationNameCommentsLung cancerFatherMelanomaNeg HxRelationName StatusCommentsFatherDeceasedMotherDeceased Social History Tobacco UseTypesPacks/DayYears UsedDateSmoking Tobacco: FormerCigarettesQuit: 2007Smokeless Tobacco: Never Tobacco Cessation:Counseling Given: Not Answered Alcohol UseStandard Drinks/WeekCommentsYes4 (1 standard drink = 0.6 oz pure alcohol)caffeine: 1-2 cups per dayCommentsUnknownSex and Gender InformationValueDate RecordedSex Assigned at BirthNot on fileLegal SexFemale 12/16/2022 6:35 PM EDTGender IdentityNot on fileSexual OrientationNot on file Last Filed Vital Signs Vital SignReadingTime TakenCommentsBlood Giugabsy620/7607/17/2025 9:54 AM EDT Xmhmi042407/17/2025 9:54 AM YDOFdjtfpibdht22.6 ??C (97.9 ??F)03/09/2024 9:32 AM EDTRespiratory Vtun6047 9:54 AM EDTOxygen Jrhnhgxncd02%07/17/2025 9:54 AM EDTInhaled Oxygen Concentration--Elbgsh31.8 kg (134 lb)07/17/2025 9:54 AM EDT Skpxhv194.5 cm (5' 2 )07/17/2025 9:54 AM EDTBody Mass Index24.511 9:54 AM EDT Plan of Treatment DateTypeDepartmentCare Team (Latest Contact Info)Bwlgnlyrzxa71/14/2026 9:30 AM EDTOffice Visit [facility] [place] [facility] [address] [place] [address] Maxim Vela MD [address] [place] [address] 02/14/2026 9:00 AM EDTOffice Visit [facility] [place] [facility] [address] [place] [address] Mindy Dove MD [address] [place] [address] Health MaintenanceDue DateLast DoneCommentsDTaP/Tdap/Td Vaccines (3 - Td or Tdap)/, 08/30/2013, 08/30/2013COVID-19 Vaccine ( season), 07/03/2024, 06/22/2023, Additional history exists Pneumococcal Vaccine: 65+ KkyiuJcwcfzuvf08/30/2016, 07/04/2015Influenza Vaccine Tmofirimp46/18/2025, 07/03/2024, 06/22/2023, Additional history existsHIB VaccinesAged OutNo longer eligible based on patient's age to complete this topic HPV VaccinesAged OutNo longer eligible based on patient's age to complete this topicHepatitis A VaccinesAged OutNo longer eligible based on patient's age to complete this topicHepatitis B VaccinesAged OutNo longer eligible based on patient's age to complete this topicIPV VaccinesAged OutNo longer eligible based on patient's age to complete this topicMeningococcal B VaccineAged OutNo longer eligible based on patient's age to complete this topicMeningococcal VaccineAged OutNo longer eligible based on patient's age to complete this topicRotavirus VaccinesAged OutNo longer eligible based on patient's age to complete this topic Procedures Procedure NamePriorityDate/TimeAssociated DiagnosisCommentsVITAMIN DRoutine 07/11/2025 8:27 AM EDTRENAL FUNCTION GSQSNFwrgitu27/08/2025 8:27 AM EDTfrom Last 3 Months Results * VITAMIN D (07/11/2025 8:27 AM EDT) Narrative Authorizing ProviderResult TypeResult StatusMaxim ATKINS BLOOD ORDERABLESFinal Result * Renal function panel (07/11/2025 8:27 AM EDT)Specimen (Source)Anatomical Location / LateralityCollection Method / VolumeCollection TimeReceived Time BloodVenous blood specimen / Unknown Narrative Authorizing ProviderResult TypeResult StatusAhmastefanie ATKINS BLOOD ORDERABLESFinal Result from Last [address] [place] [address] Care Teams Team MemberRelationshipSpecialtyStart DateEnd Date Abiel Davison MD [address] [place] [address] [place] [address] PCP - GeneralFamily Medicine12/08/23
--- OUTSIDE RECORDS SUMMARY | 2025-08-07 10:03 | XMS_ITS | CCD ---
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 Role Phone DR ZAFAR REYES Primary Care Unavailable GIRNEL, DR STEPHEN Admitting Unavailable GIRNEL, DR STEPHEN Attending Unavailable MIRIAN, AHMAEdison Admitting Unavailable MIRIAN, AHDENNY Attending Unavailable MIRIAN, AHMAEdison Consulting Unavailable GIRNEL, DR STEPHEN Primary Care Unavailable GIRVIN, DR STEPHEN Admitting Unavailable GIRVIN, DR STEPHEN Attending Unavailable GIRVIN, DR STEPHEN Consulting Unavailable GIRVIN, DR STEPHEN Primary Care Unavailable GIRVIN, DR STEPHEN Admitting Unavailable GIRVIN, DR STEPHEN Attending Unavailable GIRVIN, DR STEPHEN Consulting Unavailable GIRVIN, DR STEPHEN Primary Care Unavailable MIRIAN, AHMAD Attending Unavailable MIRIAN, AHMAD Consulting Unavailable MIRIAN, AHMAD Admitting Unavailable GIRNEL, DR STEPHEN Primary Care Unavailable Zafar Reyes Unavailable Vitaly Denson Unavailable DO Zafar Reyes Primary Care Provider DO Zafar Reyes Attending Provider [phone] MD Vitaly Denson Attending Provider DO Zafar Reyes Primary Care Provider [phone] DO Zafar Reyes Attending Provider DO Zafar Reyes Primary Care Provider [phone] DO Zafar Reyes Attending Provider MD Maxim Hughes Attending Provider DO Zafar Reyes Primary Care Provider DO Zafar Reyes Referring Provider Self, Referral Attending Provider Unavailable DO Zafar Reyes Attending Provider Lilia Pond Unavailable DO Zafar Reyes Primary Care Provider MD Maxim Hughes Attending Provider DO Zafar Reyes Primary Care Provider [phone] DO Zafar Reyes Primary Care Provider MD Maxim Hughes Attending Provider DO Zafar Reyes Attending Provider [phone] DO Zafar Reyes Primary Care Provider MD Maxim Hughes Attending Provider MD Maxim Hughes Referring Provider DO Zafar Reyes Attending Provider DO Zafar Reyes Referring Provider Self, Referral Attending Provider Unavailable DO Zafar Reyes Primary Care Provider [phone] MD Maxim Hughes Attending Provider DO Zafar Reyes Primary Care Provider DO Zafar Reyes Primary Care Provider [phone] DO Zafar Reyes Attending Provider DO Zafar Reyes Primary Care Provider [phone] Zafar Reyes MD Primary Care Provider MD Maxim Hughes Attending Provider Zafar Reyes DO Primary Care Provider Maxim Hughes MD Attending Provider Maxim Hughes MD Referring Provider Zafar Reyes DO Attending Provider Zafar Reyes DO Primary Care Provider [phone] Zafar Reyes MD Primary Care Provider Zafar Reyes MD Primary Care Provider Zafar Reyes DO Primary Care Provider [phone] Maxim Hughes MD Attending Provider Maxim Hughes MD Referring Provider [phone] Zafar Reyes DO Attending Provider Zafar Reyes MD Primary Care Provider [phone] Zafar Reyes DO Primary Care Provider Maxim Hughes MD Attending Provider Self, Referral Attending Provider Unavailable Zafar Reyes DO Primary Care Provider Zafar Reyes DO Attending Provider Zafar Reyes DO Primary Care Provider [phone] Maxim Hughes MD Attending Provider Zafar Reyes MD Primary Care Provider MATTHEW ROCK Attending Unavailable MIRIAN, MAXIM Owens Attending Unavailable MATTHEW ROCK Attending Unavailable PETANEL CHILEL Attending Unavailable MIRIAN, MAXIM F Attending Unavailable Self, Referral Admitting Unavailable Self, Referral Attending Unavailable Zafar Reyes Primary Care Unavailable Zafar Reyes Attending Unavailable Zafar Reyes Admitting Unavailable Zafar Reyes Primary Care Unavailable Zafar Reyes Primary Care Unavailable Mirian, Ahmad Admitting Unavailable Mirian, Ahbhaskard Attending Unavailable Zafar Reyes Attending Unavailable Zafar Reyes Admitting Unavailable Zafar Reyes Primary Care Unavailable Mirian, Ahdenny Admitting Unavailable Mirian, Ahdenny Attending Unavailable Mirian, Ahmad Referring Unavailable Zafar Reyes Primary Care Unavailable Zafar Reyes Attending Unavailable Zafar Reyes Admitting Unavailable Zafar Reyes Primary Care Unavailable Maxim Hughes MD Referring Provider [phone] Allergies Allergy ClassificationReported Allergen(s)Allergy TypeDate of OnsetReaction(s) Facility (1 source)PenicillinDrug Mjssizi85-52-1277Vhb [facility] (20 sources)LatexPropensity to adverse dofytrjgl89-38-2779? potential allergy, Rash, Rash, ? potential allergyOhio Valley Hospital (20 sources)LidocaineDrug Vybbkac82-38-1868xop's swelled shutOhio Valley Hospital (14 sources)Penicillins (Antibiotic)Propensity to adverse reactionsrashNmercy hospital south, formerly [facility] [employer] Other (14 sources)Augmentin TabletsDrug allergyrash on abdomenNort [employer] Other (19 sources)Amoxicillin; Translations: [amoxicillin]Drug Ogznisy11-88-4014clpp on [facility] (20 sources)Clavulanate; Translations: [clavulanic acid]Drug Rfcifcr08-05-9485 rash on [facility] (20 sources)Penicillins; Translations: [Penicillins]Allergy to substance 56-33-4769FspcBrgvhhrclUniversity Hospitals Health System (20 sources)AcetaminophenDrug Xusqety67-29-6233[facility] (20 sources)HYDROcodoneDrug Luorjct52-60-6658GXGH [facility] (20 sources)LansoprazoleAllergy to qktefljvx55-74-0697S[facility] (20 sources)LatexAllergy to gjjdugxba86-34-3466DygwDUZP Healthcare (1 source)LatexDrug allergy (disorder)88-83-4995IfignjyspOhio Valley Hospital [facility]ository (1 source)LidocaineDrug Hojqcbm80-03-4611JkclzsscnOhio Valley Hospital Repository Medications Current Medications MedicationDrug Class(es)DatesSig (Normalized)Sig (Original)ascorbic acid 100 mg oral tablet (20 sources)Vitamin Ctake 1 tablet by mouth once dailyAscorbic Acid (vitamin C) 100 MG tablet Take 1 tablet by mouth Daily ActiveVitamin C Not-TakingVitamin C Activeatorvastatin 10 mg oral tablet (20 sources)HMG-CoA Reductase InhibitorStart: 33-04-4516Akcwxgkzsdjf 10 mg tablet Active 10 MG PO .COMPLEX 36 90 3 December 05, 2024 12:04pm 10 mg orally three days a week; Complies with drug therapyStart: 05-22-2022 End: 19-08-2550hevv 1 tablet by mouth once dailyAtorvastatin 10 mg tablet Discontinued 10 MG PO Daily 90 90 3 May 01, 2024 9:52am December 05, 2024 12:05pmtake 1 tablet by mouth three times weeklyAtorvastatin Calcium 10 mg TAKE ONE TABLET BY MOUTH 3 TIMES WEEKLY ActiveCalcium Phosphate-Vitamin D3 (6 sources)Start: 15-43-3577Iuvhyfv Phosphate-Vitamin D3 Active TAB PO As Directed April 27, 2024 12:00am FreeTextSig: as directed Orally; Note: Source Status: Taking; Provider: Saman Stephen ( )Calcium Phosphate- Vitamin D3 250 mg-10 mcg (400 unit) tablet,chewable (4 sources)Start: 82-33-9160Uvjwglh Phosphate-Vitamin D3 250 mg-10 mcg (400 unit) tablet,chewable Active TAB PO As Directed April 27, 2024 12:00am FreeTextSig: as directed Orally; Note: Source Status: Taking; Provider: Al Stephen ( )Start: 05-60-1678Jkembok Phosphate-Vitamin D3 250 mg-10 mcg (400 unit) tablet,chewable Active TAB PO As Directed April 26, 2024 11:00pm FreeTextSig: as directed Orally; Note: Source Status: Taking; Provider: Saman Stephen ( )Caltrate Gummy Bites 250-400 MG-UNIT (6 sources)Caltrate Gummy Bites 250-400 MG-UNIT as directed Orally Active cephalexin 500 mg oral capsule (2 sources)Cephalosporin AntibacterialStart: 69-45-7630cxlr 1 capsule by mouth every eight hoursCephalexin 500 MG 1 capsule Orally three times a day for 10 day(s) Dec, Activecholecalciferol 0.125 mg oral capsule (7 sources)Vitamin DStart: 53-19-8494xsxs 1 capsule by mouth once daily Cholecalciferol (Vitamin D3) 125 mcg (5,000 unit) capsule Active 125 MCG PO Daily August 01, 2025 12:00am Complies with drug therapyStart: 33-72-0451iaxn 1 tablet by mouth every twenty-four hoursVitamin D 50 MCG (2000 UT) 1 tablet Orally Once a day Oct, Activesugar-free cholestyramine resin 4000 mg powder for oral suspension (9 sources)Bile Acid SequestrantStart: 04-15-2023 End: 04-21-2954hbcazwrluahoki light (Prevalite) 4 GM/DOSE powder USE 1 SCOOP ONCE DAILY IN 8 TO 10 OUNCES OF WATERFOR 30 DAYS (42 DAYS SUPPLY) 04/15/2023 06/26/2024 DiscontinuedStart: 14-29-2882Ntuhuobnnymsyk Light 4 GM/DOSE 1 scoop Orally daily in 8-10 ounces of water May, ActiveStart: 05-17-2018 Cholestyramine Light 4 GM/DOSE 1 scoop Orally daily in 8-10 ounces of water for 30 days May, Active1 ml denosumab 60 mg/ml prefilled syringe (18 sources)RANK Ligand Inhibitorinject 60 mg by subcutaneous injection once denosumab (Prolia) 60 MG/ML solution prefilled syringe Inject 60 mg under the skin 1 (one) time Activedicyclomine hydrochloride 20 mg oral tablet (9 sources)AnticholinergicStart: 32-56-8108boxz 1 tablet by mouth once Dicyclomine 20 mg tablet Active 20 MG PO Once 30 30 October 25, 2024 1:00am Complies with drugtherapyElderberry preparation (15 sources)Start: 43-08-0921aqnjrslrwa Active PO April 27, 2024 12:00am Complies with drug therapyStart: 71-79-9221Mdbqm: 08-80-7905gbhqkcsilg Active PO April 26, 2024 11:00pmStart: 27-59-5905fykfophkis Active PO April 27, 2024 12:00amInulin (1 source)Start: 72-35-7603Olqsox (Fiber Gummies) 1.7 gram tablet,chewable Active GM PO August 01, 2025 12:00am Complies with drug therapylisinopril 20 mg oral tablet (20 sources)Angiotensin Converting Enzyme InhibitorStart: 04-27-2024 End: 81-80-5937lmzu 1 tablet by mouth once dailyLisinopril 20 mg tablet Active 20 MG PO Daily 90 July 06, 2024 10:48am Complies with drug therapyStart: 05-22-2022 End: 19-84-2547knzz 1 tablet by mouth once dailyLisinopril 10 mg tablet Discontinued 10 MG PO Daily May 22, 2022 12:00am April 27, 2024 10:03am sertraline 50 mg oral tablet (20 sources)Serotonin Reuptake InhibitorStart: 12-79-2684sbea 1 tablet by mouth once dailyStart: 02-22-2024 End: 29-40-2015mqxe 1 tablet by mouth once dailySertraline 50 mg tablet Discontinued 0 .ROUTE .COMPLEX 90 June 21, 2025 10:17am August 01, 2025 8:25am TAKE ONE TABLET BY MOUTH ONCE DAILYStart: 12-21-2016 End: 09-56-7092uhta 1 tablet by mouth once dailySertraline 50 mg tablet Discontinued 50 MG PO Daily May 22, 2022 12:00am February 22, 2024 9:28am tolnaftate 10 mg/ml topical solution (19 sources)tolnaftate (Tinactin) 1 % external solution Apply 1 application topically in the morning and 1 application before bedtime. Patient only applying once a day. Activevitamin b12 5 mg oral capsule (20 sources)Vitamin B09Fbzvu: 66-58-1618Oksjgjnergmlig (Vitamin B-12) 5,000 mcg capsule Active 5000 MCG PO .COMPLEX August 01, 2025 8:17am 5,000 mcg orally take B12 5 days a week Complies with drug therapyStart: 05-10-2025 End: 07-79-6148yjnl 1 capsule by mouth every other dayCyanocobalamin (Vitamin B- 12) 5,000 mcg capsule Discontinued 5000 MCG PO .COMPLEX 15 0 May 10, 2025 10:54am August 01, 2025 8:19am 5,000 mcg orally take B12 every other day; Start: 04-27-2024 End: 62-17-3931Mgeareaclafnsq (Vitamin B-12) 5,000 mcg capsule Discontinued 5000 MCG PO .COMPLEX April 27, 2024 10:09am November 02, 2024 10:32am take B12 three days a weekStart: 04-27-2024 End: 58-52-5418dvhn 1 capsule by mouth once dailyCyanocobalamin (Vitamin B-12) 5,000 mcg capsule Discontinued 5000 MCG PO Daily April 27, 2024 12:00am April 27, 2024 10:09amStart: 88-73-6569Yrwvsit B12 1000 MCG dissolve 1 tab Orally Wed -Wednesday (5000 MCG) Oct, ActiveVitamin B 12 ActiveVitamin B12 1000 MCG (8 sources)Start: 45-84-3456nryu 1 tablet by mouth once dailyVitamin B12 1000 MCG 1 tablet Orally Once a day Mar, Activevitamin d 3 (15 sources)Start: 92-98-6396huccfyp d 3 Active PO April 27, 2024 12:00am Complies with drug therapyStart: 66-01-8211Rihzq: 00-72-4761lesvlaq d 3 Active PO April 26, 2024 11:00pmStart: 97-97-9567zegzmba d 3 Active PO April 27, 2024 12:00am Completed/Discontinued Medications MedicationDrug Class(es)DatesSig (Normalized)Sig (Original)cefTRIAXone (13 sources)Cephalosporin AntibacterialStart: 07-33-8075Bblgobti 500 mg Jul, 1 grmcholecalciferol 0.01 mg / tricalcium phosphate 658 mg chewable tablet (13 sources)Vitamin DStart: 04-27-2024 End: 52-73-7894Kmkdwte Phosphate-Vitamin D3 250 mg-10 mcg (400 unit) tablet,chewable Discontinued TAB PO As Directed April 27, 2024 12:00am August 01, 2025 8:19am FreeTextSig: as directed Orally; Note: Source Status: Taking; Provider: Saman Stephen ( )Caltrate Gummy Bites 250-400 MG-UNIT as directed Orally Activenitrofurantoin, macrocrystals 25 mg / nitrofurantoin, monohydrate 75 mg oral capsule (4 sources)Nitrofuran AntibacterialStart: 16-02-3542yhow 1 capsule by mouth twice daily at mealtimeMacrobid 100 MG 1 capsule Orally bid with food for 7 days Apr, Not-Takingsulfamethoxazole 400 mg / trimethoprim 80 mg oral tablet (4 sources)Dihydrofolate Reductase Inhibitor Antibacterial, Sulfonamide AntimicrobialStart: 34-49-0141tufi 1 tablet by mouth every twelve hoursBactrim 400-80 MG 1 tablet Orally every 12 hrs for 5 days Mar, Not-Taking terbinafine 250 mg oral tablet (18 sources)Allylamine AntifungalStart: 12-13-2023 End: 73-84-3255zfyn 1 tablet by mouth once dailyTerbinafine Hcl 250 mg tablet Discontinued 250 MG PO Daily 30 December 13, 2023 12:00am April 9:43am Problems Active Problems Problem ClassificationProblemDateDocumented DateEpisodic/ChronicAbdominal pain (12 sources)Abdominal pain; Translations: [Unspecified abdominal pain]10-25-2024 EpisodicAnxiety disorders (14 sources)Anxiety; Translations: [Anxiety disorder, unspecified]Chronic Conditions associated with dizziness or vertigo (20 sources)Dizziness; Translations: [Dizziness and giddiness]21-20-7656Ibixwsrs Disorders of lipid metabolism (20 sources)Hyperlipidemia, unspecified; Translations: [Hyperlipidemia]Onset: 09-18-2021 Resolved: 46-32-0477EywlladBxbnmbqtw hypertension (20 sources)Hypertensive disorder; Translations: [Essential (primary) hypertension]Onset: 09-18-2021 Resolved: 27-39-0707HdrrtomLqym disorders (20 sources)Depressive disorder; Translations: [Major depressive disorder, single episode, unspecified]Onset: 09-18-2021 Resolved: 46-83-1339MjkrtnsIsctmtl (3 sources)Onychomycosis; Translations: [Tinea unguium]37-73-7509Uulhifqk Noninfectious gastroenteritis (20 sources)Colitis; Translations: [Lymphocytic colitis]89-36-5520Nzuxcdi Noninfectious gastroenteritis (15 sources)Lymphocytic-plasmacytic colitis; Translations: [Other specified noninfective gastroenteritis and colitis]EpisodicNutritional deficiencies (20 sources)Vitamin D deficiency, unspecified; Translations: [Vitamin D deficiency]Onset: 09-18-2021 Resolved: 64-93-7666DeaiyifZpnp wounds of extremities (1 source)Laceration without foreign body of right forearm, initial encounter EpisodicOsteoporosis (20 sources)Age-related osteoporosis without current pathological fracture; Translations: [Osteoporosis]Onset: 09-18-2021 Resolved: 12-13-5036VjshslnBsulw aftercare (13 sources)Patient encounter status; Translations: [Other research development manager (current) drug therapy]57-49-4587TxibhvxdCbnae circulatory disease (2 sources)Spider nevus; Translations: [Nevus, non-neoplastic]63-30-1402Mxpchwmg Other gastrointestinal disorders (20 sources)Irritable bowel syndrome with diarrhea; Translations: [Irritable bowel syndrome with diarrhea]27-43-0955EhfrkkxJthup gastrointestinal disorders (3 sources)Irritable bowel syndrome with diarrhea; Translations: [Irritable bowel syndrome]78-54-8909NlsffoyPkxdx gastrointestinal disorders (20 sources)Diarrhea; Translations: [Diarrhea, unspecified]35-68-3399Yzbcvkmw Other gastrointestinal disorders (9 sources)Constipation; Translations: [Constipation, unspecified]10-25-2024 EpisodicOther gastrointestinal disorders (3 sources)Diarrhea, unspecified; Translations: [Diarrhea]05-37-8914Emffswon Other nervous system disorders (20 sources)Impairment of balance; Translations: [Other abnormalities of gait and mobility]Onset: 108393-26-6513ExzmycbkMwfrl non-epithelial cancer of skin (2 sources)History of malignant basal cell neoplasm of skin; Translations: [Personal history of other malignant neoplasm of skin]28-83-3748SsgmboufOlloe nutritional; endocrine; and metabolic disorders (6 sources)Hypercalcemia; Translations: [Hypercalcemia]62-59-8061NtbdilxWjiom skin disorders (2 sources)Nail deformity; Translations: [Other nail disorders]10-24-2024 EpisodicOther skin disorders (2 sources)Seborrheic keratosis; Translations: [Other seborrheic keratosis] 96-34-1883QnjbbzofWwopg skin disorders (2 sources)Actinic keratosis; Translations: [Actinic keratosis]02-15-2025 EpisodicOther skin disorders (2 sources)Lentiginosis; Translations: [Other melanin hyperpigmentation] 62-95-3488NfeabrcbBvxmbzzo codes; unclassified (14 sources)Normal body mass index; Translations: [Body mass index (BMI) 22.0- 22.9, adult]EpisodicUrinary tract infections (5 sources)Cystitis, unspecified without hematuria; Translations: [CYSTITIS UNS WITHOUT HEMATURIA]Onset: 46-43-0930Hgcaobqg Past or Other Problems Problem ClassificationProblemDateDocumented DateEpisodic/ChronicDeficiency and other anemia (1 source)Anemia, unspecifiedOnset: 03-26-2022 Resolved: 21-12-8423GnztmykzQrfsgxhz mellitus without complication (20 sources)Hyperglycemia, unspecified; Translations: [Hyperglycemia]Onset: 09-18-2021 Resolved: 65-16-2441NambjvceVxtjy and electrolyte disorders (1 source)HyperkalemiaOnset: 03-26-2022 Resolved: 65-17-2482QcooaproCnkectmzdkoua symptoms and ill-defined conditions (8 sources)Nocturia; Translations: [Hematuria, unspecified]Onset: 12-16-2021 Resolved: 34-39-2279QroyiqpzGrmnpwumhhs deficiencies (20 sources)Deficiency of other specified B group vitamins; Translations: [Cobalamin deficiency]Onset: 09-18-2021 Resolved: 26-07-6674SmesxlnbFjlsb aftercare (6 sources)Other longterm (current) drug therapy; Translations: [OTH MCFP CURRENT DRUG THERAPY]Onset: 09-18-2021 Resolved: 59-62-3493BodxghcmBszsg nutritional; endocrine; and metabolic disorders (5 sources)Abnormal weight gain; Translations: [ABNORMAL WEIGHT GAIN]Onset: 09-18-2021 Resolved: 81-20-9323FuvyzxfbDvbdj nutritional; endocrine; and metabolic disorders (1 source)Abnormal weight lossOnset: 03-26-2022 Resolved: 37-93-5393MzplkoyhGbxns screening for suspected conditions (not mental disorders or infectious disease) (9 sources)Other specified abnormal findings of blood chemistry; Translations: [Other abnormal and inconclusive findings on diagnostic imaging of breast]Onset: 03-04-2022 Resolved: 01-05-2519KdufjaihApwkjfli codes; unclassified (1 source)Family history of colonic polypsOnset: 04-02-2022 Resolved: 07-71-5064HegffbtcQratddjmuxn; intervertebral disc disorders; other back problems (20 sources)Neck pain; Translations: [Cervicalgia]Onset: 938166-71-7340 Episodic Results Test NameValueInterpretationReference RangeFacilityAlbumin [Mass/volume] in Serum or Plasma by Bromocresol green (BCG) dye binding methoOrdered By: Maxim Hughes on 93-17-3541Ezogiiv BCG dye [Mass/Vol]4.6 g/dL3.5-5.7FOhioHealth Doctors HospitalCalcium [Mass/volume] in Serum or PlasmaOrdered By: Maxim Hughes on 81-88-8172Xvilwkb [Mass/Vol]9.0 mg/dLNormal8.6-10.3FOhioHealth Doctors HospitalComment on above:Performed By: #### CBC, CMP, LIPID, [id number], FOL, B12, A1C [facility] #### [address] [address] USACarbon dioxide, total [Moles/volume] in Serum or Plasma Ordered By: Maxim Hughes on 95-61-3275FR3 [Moles/Vol]27.5 mmol/CVizdwp37.0-31.0 [facility] HospitalComment on above:Performed By: #### CBC, CMP, LIPID, [id number], FOL, B12, A1C WTH eA #### [facility] [address] [id number] USAChloride [Moles/volume] in Serum or PlasmaOrdered By: Maxim Hughes on 71-59-8405Hounvpdi [Moles/Vol]102 mmol/NGozkaw75-322NvupwdstvOhio Valley HospitalComment on above:Performed By: #### CBC, CMP, LIPID, [id number], FOL, B12, A1C WTH eA #### [facility] [address] [id number] USACreatinine [Mass/volume] in Serum or PlasmaOrdered By: Maxim Hughes on 60-44-9438Obtyxztjmp [Mass/Vol]0.90 mg/dLNormal0.60-1.20 [facility] HospitalComment on above:Performed By: #### CBC, CMP, LIPID, [id number], FOL, B12, A1C WTH eA #### [facility] [address] [id number] USAGlomerular filtration rate [Volume Rate/Area] in Serum, Plasma or Blood by CreatinineOrdered By: Maxim Hughes on 46-75-0910Rkhttcxhlr filtration rate [Volume Rate/Area] in Serum, Plasma or Blood by Creatinine> 60.0 mL/MinOhio Valley HospitalGlucose [Mass/volume] in Serum or Plasma Ordered By: Maxim Hughes on 72-29-8462Oifhkbt [Mass/Vol]131 mg/qKJjxu63-257 [facility] HospitalComment on above:ADA recommended reference rangeRandom Glucose Reference Range is dependent on time and content of last meal. Glucose of more than 200 mg/dL in a nonstressed, ambulatory subject supports the diagnosisof Diabetes Mellitus.Result Comment: Random Glucose Reference Range is dependent on time and content of last meal. Glucose of more than 200 mg/dL in a nonstressed, ambulatory subject supports the diagnosis of Diabetes Mellitus. ADA recommended reference rangePerformed By: #### CBC, CMP, LIPID, [id number], FOL, B12, A1C WTH eA #### [facility] [address] [place] [address] [place]ANo Panel InformationOrdered By: Maxim Hughes on 41-41-3549Yleeosbs Creatinine Clearance (ChemN/Berger HospitalPhosphate [Mass/volume] in Serum or PlasmaOrdered By: Maxim Hughes on 80-82-4718Qswjkcmdt [Mass/Vol]3.5 mg/dLNormal2.5-4.5FOhioHealth Doctors HospitalComment on above:Performed By: #### CBC, CMP, LIPID, [id number], FOL, B12, A1C WTH eA #### [facility] [address] [place] [address] USAPotassium [Moles/volume] in Serum or PlasmaOrdered By: Maxim Hughes on 59-45-5945Lcsrgrgnd [Moles/Vol]4.6 mmol/LNormal3.5-5.1FOhioHealth Doctors HospitalComment on above:Performed By: #### CBC, CMP, LIPID, [id number], FOL, B12, A1C WTH eA #### [facility] [address] [place] [address] USARenal Function Panelon 49-69-1399Gldxczg [Mass/Vol]4.6 g/dLNormal3.5-5.7The [facility] Physician GroupComment on above:Performed By: #### CBC, CMP, LIPID, [id number], FOL, B12, A1C WTH eA #### [facility] [address] [place] [address] USAGFR/1.73 sq M.predicted MDRD (S/P/Bld) [Vol rate/Area] mL/min/{1.73_m2}NormalThe [facility] Physician GroupComment on above:Performed By: #### CBC, CMP, LIPID, [id number], FOL, B12, A1C WTH eA #### [facility] [address] [place] [address] USASerum or plasma anion gap determinationOrdered By: Maxim Hughes on 22-87-5405Gricx gap [Moles/Vol]13.1 mmol/LNormal6.0-15.0[facility] HospitalComment on above:Performed By: #### CBC, CMP, LIPID, [id number], FOL, B12, A1C WTH eA #### [facility] [address] [place], [place] [id number] USASodium [Moles/volume] in Serum or PlasmaOrdered By: Maxim Hughes on 46-54-3740Xbzbvn [Moles/Vol]138 mmol/PNagjdw637-492DlqftpuvcOhio Valley HospitalComment on above:Performed By: #### CBC, CMP, LIPID, [id number], FOL, B12, A1C WTH eA #### [facility] [address] [place], [place] [id number] USAUrea nitrogen [Mass/volume] in Serum or PlasmaOrdered By: Maxim Hughes on 42-51-1438Rvkm nitrogen [Mass/Vol]28 mg/dLHigh7-25[facility] HospitalComment on above:Performed By: #### CBC, CMP, LIPID, [id number], FOL, B12, A1C WTH eA #### [facility] [address] [place] [address] USAVitamin D 25 Hydroxy Totalon 14-06-7534Slujjar D 25 Hydroxy Total35.7 ng/lBJsfyka69-577Cgw [facility] Physician GroupComment on above:Result Comment: VITAMIN D STATUS 25(OH)VITAMIN D RANGE (ng/mL) Deficient <20 Insufficient 20 to <30 Sufficient 30 to 100 Reference: Messi MF,[place], Alec-Ger HAYDEN, et al. Evaluation,treatment, and prevention of vitamin D deficiency; an Endocrine Society clinical practice guideline. JCEM. 2010; 96(7):1911-30. PERFORMED BY: [place] [id number] PATHOLOGIST DIRECTOR OF SERVICES ROSITA BHATTI M.D.Performed By: #### CBC, CMP, LIPID, [id number], FOL, B12, A1C WTH eA #### [facility] [address] [place] [address] USAVitamin D+Metabolites [Mass/volume] in Serum or Plasma Ordered By: Maxim Hughes on 36-30-7491Bwczfhs D+Metabolites [Mass/Vol]35.7 ng/dB05-803QlgaoprdpOhio Valley HospitalComment on above:VITAMIN D STATUS 25(OH)VITAMIN D RANGE (ng/mL) Deficient <20 Insufficient 20 to <12Bafgkugbaw24 to 100Reference: Messi MF,Delvis SCHAFER, Brina HAYDEN, et al. Evaluation,treatment, and prevention of vitamin D deficiency; an Endocrine Society clinical practice guideline. JCEM. 2010; 96(7):1911-30.Alanine aminotransferase [Enzymatic activity/volume] in Serum or PlasmaOrdered By: Zafar Reyes on 26-41-7680YMZ [Catalytic activity/Vol]8 U/LNormal7-52Ohio Valley HospitalComment on above:Performed By: #### CBC, CMP, LIPID, [id number], FOL, B12, A1C WTH eA #### [facility] [address] [place] [address] USAAlbumin [Mass/volume] in Serum or Plasma by Bromocresol green (BCG) dye binding methoOrdered By: Zafar Reyes on 74-04-8876Cyvefbx BCG dye [Mass/Vol]4.6 g/dL3.5-5.7FOhioHealth Doctors HospitalAlkaline phosphatase [Enzymatic activity/volume] in Serum or PlasmaOrdered By: Zafar Reyes on 34-09-1583AFY [Catalytic activity/Vol]42 U/STwobrf99-153SplhlcljfOhio Valley HospitalComment on above:Performed By: #### CBC, CMP, LIPID, [id number], FOL, B12, A1C WTH eA #### [facility] [address] [place] [address] USAAppearance of UrineOrdered By: Zafar Reyes on 05-03-2025 Appearance (U)ClearNormalClearOhio Valley HospitalComment on above: Order Comment: Name Collection Type:: Clean-Voided MidstreamPerformed By: #### UA, CUU #### [facility] [address] [place] [address] USAAspartate aminotransferase [Enzymatic activity/volume] in Serum or PlasmaOrdered By: Zafar Reyes on 08-46-9120AOR [Catalytic activity/Vol]12 U/XHpf47-14MlquqpzkvOhio Valley HospitalComment on above: Performed By: #### CBC, CMP, LIPID, [id number], FOL, B12, A1C WT eA #### [place] [address] USABasophils [#/volume] in Blood by Automated countOrdered By: Zafar Reyes on 91-84-8355Gxtdfqcds (Bld) [#/Vol]0.1 10*3/uLNormal0.0-0.2 [facility] HospitalComment on above:Result Comment: PERFORMED BY: [place] [address] PATHOLOGIST DIRECTOR OF SERVICES ROSITA BHATTI M.D.Performed By: #### CBC, CMP, LIPID, [id number], FOL, B12, A1C WTH eA #### [place] [address] USABasophils/100 leukocytes in Blood by Automated count Ordered By: Zafar Reyes on 10-03-0458Ihagwlrbr/100 WBC (Bld)0.7 %Normal. [facility] Valley HospitalComment on above:Performed By: #### CBC, CMP, LIPID, [id number], FOL, B12, A1C WTH eA #### [place] [address] USABilirubin Test strip Ql (U)Ordered By: Zafar Reyes on 01-79-0727Ziudfxvlb Ql (U)NegativeNegativeOhio Valley Hospital Bilirubin.total [Mass/volume] in Serum or PlasmaOrdered By: Zafar Reyes on 41-25-2891Ichiwgtzd [Mass/Vol]0.5 mg/dLNormal0.3-1.0Ohio Valley HospitalComment on above:Performed By: #### CBC, CMP, LIPID, [id number], FOL, B12, A1C WTH eA #### [facility] [address] [place] [address] USABlood estimated average glucose determination by estimation from glycated hemoglobinOrdered By: Zafar Reyes on 16-26-3606Shpagap glucose Estimated from glycated hemoglobin (Bld) [Mass/Vol]114 mg/dLOhio Valley HospitalCalcium [Mass/volume] in Serum or PlasmaOrdered By: Zafar Reyes on 39-78-9153Wslkdfm [Mass/Vol]10.9 mg/dLHigh8.6-10.3FOhioHealth Doctors HospitalComment on above:Performed By: #### CBC, CMP, LIPID, [id number], FOL, B12, A1C WT eA #### [facility] [address] [place] [id number] USACarbon dioxide, total [Moles/volume] in Serum or Plasma Ordered By: Zafar Reyes on 69-01-0228LQ1 [Moles/Vol]32.5 mmol/LHigh21.0-31.0 [facility] HospitalComment on above:Performed By: #### CBC, CMP, LIPID, [id number], FOL, B12, A1C WTH eA #### [facility] [address] [place] [id number] USAChloride [Moles/volume] in Serum or PlasmaOrdered By: Zafar Reyes on 45-48-1622Fgpedrtf [Moles/Vol]101 mmol/BHqefyi10-033HswdrmbneOhio Valley HospitalComment on above:Performed By: #### CBC, CMP, LIPID, [id number], FOL, B12, A1C WTH eA #### [facility] [address] [place] [id number] USACholesterol [Mass/volume] in Serum or PlasmaOrdered By: Zafar Reyes on 63-69-9201Mmdxihtconu [Mass/Vol]224 mg/wWXzxl770-527LevrgahlnOhio Valley HospitalComment on above:Chol less than 200 mg/dl low riskChol 201-239 mg/dl borderline riskChol 240 mg/dl and greater high riskResult Comment: Chol less than 200 mg/dl low risk Chol 201-239 mg/dl borderline risk Chol 240 mg/dl and greater high riskPerformed By: #### CBC, CMP, LIPID, [id number], FOL, B12, A1C WTH eA #### [facility] [address] [place] [address] USACholesterol in HDL [Mass/volume] in Serum or PlasmaOrdered By: Zafar Reyes on 03-76-5824Jjkoohqfkaq in HDL [Mass/Vol]102 mg/wMXhkq48-04 Ohio Valley HospitalComment on above:HDL CHOL ATP-III CLASSIFICATION Cardiovascular RiskHDL > or equal to 60 mg/dL LOWHDL < 40 mg/dL HIGHResult Comment: HDL CHOL ATP-III CLASSIFICATION Cardiovascular Risk HDL > or equal to 60 mg/dL LOW HDL < 40 mg/dL HIGHPerformed By: #### CBC, CMP, LIPID, [id number], FOL, B12, A1C WT eA #### [facility] [address] [place] [address] USACholesterol in LDL Calc [Mass/Vol]Ordered By: Zafar Reyes on 38-08-6434Fctgigokdeu in LDL [Mass/Vol]108 mg/dLHigh0-100Ohio Valley HospitalComment on above:LDL ATP III CLASSIFICATIONLDL less than 100 mg/dL OptimalLDL 100-129 mg/dL Near or above tnhcqgbAYR168-013 mg/dL Borderline highLDL 160-189 mg/dL HighLDL greater than 189 mg/dL Very highCholesterol in VLDL Calc [Mass/Vol]Ordered By: Zafar Reyes on 69-99-8161Qeroklqootp in VLDL [Mass/Vol]14 mg/dLOhio Valley HospitalColor of Urine by AutoOrdered By: Zafar Reyes on 24-16-0403Spzlu (U)Light-yellowNormalYellowOhio Valley HospitalComment on above:Order Comment: Name Collection Type:: Clean-Voided MidstreamPerformed By: #### UA, CUU #### [facility] [address] [place] [address] USAComplete Blood Count Auto Diffon 43-40-7741Tskk Corpuscular HGB Conc32.3 g/mYPtffwy36.0-35.0The [facility] Physician GroupComment on above:Performed By: #### CBC, CMP, LIPID, [id number], FOL, B12, A1C WTH eA #### [place] [address] USANRBC%0.0 /100{WBC}Normal0-0.5The [facility] Comment on above:Performed By: #### CBC, CMP, LIPID, [id number], FOL, B12, A1C WTH eA #### [place] [address] USAWhite Blood Count7.0 [CFU]/mLNormal3.8-11.6The [facility] Physician [facility] Care HospitalComment on above:Performed By: #### CBC, CMP, LIPID, [id number], FOL, B12, A1C WTH eA #### [place] [address] USAComprehensive Metabolic Panelon 01-34-7182Yikmimg [Mass/Vol]4.6 g/dLNormal3.5-5.7The [facility] Physician [facility] Care HospitalComment on above: Performed By: #### CBC, CMP, LIPID, [id number], FOL, B12, A1C WTH eA #### [place] [address] USAGFR/1.73 sq M.predicted MDRD (S/P/Bld) [Vol rate/Area] 51.862 mL/min/{1.73_m2}NormalThe [facility] Physician [facility] Critical Care HospitalComment on above: Performed By: #### CBC, CMP, LIPID, [id number], FOL, B12, A1C WTH eA #### [place] [address] USACreatinine [Mass/volume] in Serum or PlasmaOrdered By: Zafar Reyes on 17-26-3811Jpuhyujsji [Mass/Vol]1.07 mg/dLNormal0.60-1.20 [facility] HospitalComment on above:Performed By: #### CBC, CMP, LIPID, [id number], FOL, B12, A1C WTH eA #### [place] [address] USAEosinophils [#/volume] in Blood by Automated countOrdered By: Zafar Reyes on 22-39-4638Cfkbojtehlz (Bld) [#/Vol]0.5 10*3/uLHigh0.0-0.45 [facility] HospitalComment on above:Performed By: #### CBC, CMP, LIPID, [id number], FOL, B12, A1C WTH eA #### [facility] [address] [place] [id number] USAEosinophils/100 leukocytes in Blood by Automated count Ordered By: Zafar Reyes on 05-42-9867Ojbwfmwumbr/100 WBC (Bld)7.2 %Normal. [facility] HospitalComment on above:Performed By: #### CBC, CMP, LIPID, [id number], FOL, B12, A1C WTH eA #### [facility] [address] [place] [address] USAErythrocyte distribution width [Ratio] by Automated count Ordered By: Zafar Reyes on 12-62-7277Tcvpasejorc distribution width (RBC) [Ratio]14.0 %Ffmnfs11.9-15.3FOhioHealth Doctors HospitalComment on above: Performed By: #### CBC, CMP, LIPID, [id number], FOL, B12, A1C WTH eA #### [facility] [address] [place] [id number] USAErythrocytes [#/volume] in Blood by Automated countOrdered By: Zafar Reyes on 94-30-3941TWV (Bld) [#/Vol]3.87 10*6/uLNormal3.60-5.00 [facility] HospitalComment on above:Performed By: #### CBC, CMP, LIPID, [id number], FOL, B12, A1C WTH eA #### [facility] [address] [place], [place] [id number] USAFolate [Mass/volume] in Serum or PlasmaOrdered By: Zafar Reyes on 58-19-1295Kiyers [Mass/Vol]8.8 ng/mL>5.9Ohio Valley HospitalComment on above:Folate reference range: >5.9 ng/mlThe WHO technical consultation on folate and vitamin f14iaraihsgfgbo has determined that folate concentrations lessthan 4 ng/ml are considered deficient.Glucose [Mass/volume] in Serum or PlasmaOrdered By: Zafar Reyes on 70-68-3055Ziqorux [Mass/Vol]114 mg/dLNoPomerene HospitalComment on above:ADA recommended reference rangeRandom Glucose Reference Range is dependent on time and content of last meal. Glucose of more than 200 mg/dL in a nonstressed, ambulatory subject supports the diagnosisof Diabetes Mellitus.Result Comment: Random Glucose Reference Range is dependent on time and content of last meal. Glucose of more than 200 mg/dL in a nonstressed, ambulatory subject supports the diagnosis of Diabetes Mellitus. ADA recommended reference rangePerformed By: #### CBC, CMP, LIPID, [id number], FOL, B12, A1C WT eA #### [facility] [address] [place] [address] USAResult Comment: PERFORMED BY: [place] [address] PATHOLOGIST DIRECTOR OF SERVICES ROSITA BHATTI M.D.Glucose [Mass/volume] in Urine by Test stripOrdered By: Zafar Reyes on 46-55-6467Juddibx Test strip (U) [Mass/Vol]Normal mg/dLNoKindred Hospital DaytonHematocrit [Volume Fraction] of Blood by Automated countOrdered By: Zafar Reyes on 29-86-4922Mwrlvmdree (Bld) [Volume fraction]37.6 %Mjzuua93.0-46.4FOhioHealth Doctors HospitalComment on above: Performed By: #### CBC, CMP, LIPID, [id number], FOL, B12, A1C WT eA #### [facility] [address] [place] [address] USAHemoglobin A1c/Hemoglobin.total in BloodOrdered By: Zafar Reyes on 63-14-6079VhW3h (Bld) [Mass fraction]5.6 %Normal4.3-5.6FOhioHealth Doctors HospitalComment on above:Increased risk for diabetes: 5.7 - 6.4diabetes: >6.4glycemic control for adults with diabetes: <7.0Result Comment: Increased risk for diabetes: 5.7 - 6.4 diabetes: >6.4 glycemic control for adults with diabetes: <7.0Performed By: #### CBC, CMP, LIPID, [id number], FOL, B12, A1C WTH eA #### [place] [id number] USAHemoglobin Test strip Ql (U)Ordered By: Zafar Reyes on 16-46-0831Npfgcauofk Ql (U)NegativeNegWright-Patterson Medical Center Hemoglobin [Mass/volume] in BloodOrdered By: Zafar Reyes on 05-03-2025 Hemoglobin (Bld) [Mass/Vol]12.1 g/hZAitbmc49.8-15.4FOhioHealth Doctors HospitalComment on above:Performed By: #### CBC, CMP, LIPID, [id number], FOL, B12, A1C WT eA #### [place] [address] USAKetones [Presence] in Urine by Test stripOrdered By: Zafar Reyes on 84-59-8140Qaxwxwp Ql (U)NegativeNormalOhioHealth Grady Memorial HospitalComment on above:Order Comment: Name Collection Type:: Clean- Voided MidstreamPerformed By: #### UA, CUU #### [place] [id number] USALeukocyte esterase [Presence] in Urine by Test strip Ordered By: Zafar Reyes on 86-25-5328Hpcwgpiac esterase Test strip Ql (U) NegativeUniversity Hospitals Health SystemComment on above:Order Comment: Name Collection Type:: Clean-Voided MidstreamPerformed By: #### UA, CUU #### [place] [id number] USALeukocytes [#/volume] corrected for nucleated erythrocytes in Blood by Automated counOrdered By: Zafar Reyes on 37-45-8307FMI corrected for nucl RBC Auto (Bld) [#/Vol]7.0 10*3/uL3.8-11.6FOhioHealth Doctors HospitalLeukocytes [#/volume] in Blood by Automated countOrdered By: Zafar Reyes on 74-00-5397IKR (Bld) [#/Vol]7.0 10*3/uLNormal3.8-11.6FOhioHealth Doctors HospitalComment on above:Performed By: #### CBC, CMP, LIPID, [id number], FOL, B12, A1C WTH eA #### [facility] [address] [place] [address] USALipid Panelon 24-36-7241VBL Cholesterol,Nhqodjnxxy904 mg/dLHigh0-100The [facility] Physician [facility] Critical Care HospitalComment on above:Result Comment: LDL ATP III CLASSIFICATION LDL less than 100 mg/dL Optimal LDL 100-129 mg/dL Near or above optimal LDL 130-159 mg/dL Borderline high LDL 160-189 mg/dL High LDL greater than 189 mg/dL Very highPerformed By: #### CBC, CMP, LIPID, [id number], FOL, B12, A1C WTH eA #### [facility] [address] [place] [address] USATriglyceride w/Avufln35 mg/dLNormal0-149The [facility] Physician [facility] Critical Care HospitalComment on above:Result Comment: TRIG ATP III CLASSIFICATION TRIG less than 150 mg/dL Normal TRIG 150-199 mg/dL Borderline high TRIG 200-500 mg/dL High TRIG greater than 500 mg/dL Very high Standard traceable to the Center for Disease Conrtrol and Prevention (CDC) test method.Performed By: #### CBC, CMP, LIPID, [id number], FOL, B12, A1C WTH eA #### [facility] [address] [place] [address] USAVLDL XTQEVLTCKQR05 mg/dLNormalThe [facility] Physician GroupComment on above:Performed By: #### CBC, CMP, LIPID, [id number], FOL, B12, A1C WTH eA #### [facility] [address] [place] [address] USALymphocytes [#/volume] in Blood by Automated countOrdered By: Zafar Reyes on 26-47-7564Vobdtwfklpr (Bld) [#/Vol]2.1 10*3/uLNormal1.00-4.8 [facility] HospitalComment on above:Performed By: #### CBC, CMP, LIPID, [id number], FOL, B12, A1C WTH eA #### [facility] [address] [place] [id number] USALymphocytes/100 leukocytes in Blood by Automated count Ordered By: Zafar Reyes on 68-42-2438Lrjikcxblgl/100 WBC (Bld)29.7 %Normal. [facility] HospitalComment on above:Performed By: #### CBC, CMP, LIPID, [id number], FOL, B12, A1C WTH eA #### [address] [Entitic mass] by Automated countOrdered By: Zafar Reyes on 98-75-5445XFD (RBC) [Entitic mass]31.4 opSovdyz91.7-34.3FOhioHealth Doctors HospitalComment on above:Performed By: #### CBC, CMP, LIPID, [id number], FOL, B12, A1C WTH eA #### [address] Auto (RBC) [Mass/Vol]Ordered By: Zafar Reyes on 66-04-7683CKKP (RBC) [Mass/Vol]32.3 g/dL32.0-35.0J.[facility] HospitalV [Entitic volume] by Automated countOrdered By: Zafar Reyes on 75-16-3875XRI (RBC) [Entitic vol]97.2 iLWmoikb15-131PvprsdafsOhio Valley HospitalComment on above:Performed By: #### CBC, CMP, LIPID, [id number], FOL, B12, A1C WTH eA #### [place] [address] USAMonocytes [#/volume] in Blood by Automated countOrdered By: Zafar Reyes on 01-57-8276Vdsdkarqj (Bld) [#/Vol]0.6 10*3/uLNormal0.0-0.8 [facility] HospitalComment on above:Performed By: #### CBC, CMP, LIPID, [id number], FOL, B12, A1C WTH eA #### [facility] [address] [place] [address] USAMonocytes/100 leukocytes in Blood by Automated count Ordered By: Zafar Reyes on 38-67-1568Timrtexhj/100 WBC (Bld)8.5 %Normal. [facility] HospitalComment on above:Performed By: #### CBC, CMP, LIPID, [id number], FOL, B12, A1C WTH eA #### [facility] [address] [place] [address] USANeutrophils [#/volume] in Blood by Automated countOrdered By: Zafar Reyes on 29-13-3126Asdvpcndpsi (Bld) [#/Vol]3.8 10*3/uLNormal1.8-7.7 [facility] HospitalComment on above:Performed By: #### CBC, CMP, LIPID, [id number], FOL, B12, A1C WTH eA #### [address] [address] USANeutrophils/100 leukocytes in Blood by Automated count Ordered By: Zafar Reyes on 41-91-8731Darjkiomivw/100 WBC (Bld)53.9 %Normal. [facility] HospitalComment on above:Performed By: #### CBC, CMP, LIPID, [id number], FOL, B12, A1C WTH eA #### [place] [id number] USANitrite Test strip Ql (U)Ordered By: Zafar Reyes on 61-96-3007Iuxitlf Ql (U)NegativeNegativeOhio Valley HospitalNo Panel InformationOrdered By: Zafar Reyes on 13-99-9997Pemkuwxjx GFR (CKD-EPI) 51.862 mL/MinOhio Valley HospitalPharmacy Creatinine Clearance (ChemN/AFOhioHealth Doctors HospitalNucleated erythrocytes [Presence] in Blood by Automated countOrdered By: Zafar Reyes on 84-11-4067Tuooioapw RBC Auto Ql (Bld)0.0 /100{WBC}0-0.5FOhioHealth Doctors HospitalPlatelet mean volume [Entitic volume] in Blood by Automated countOrdered By: Zafar Reyes on 91-66-6652Syztkuew mean volume (Bld) [Entitic vol]8.7 fLNormal6.3-10.7FOhioHealth Doctors HospitalComment on above:Performed By: #### CBC, CMP, LIPID, [id number], FOL, B12, A1C WTH eA #### [facility] [address] [place] [address] USAPlatelets [#/volume] in Blood by Automated countOrdered By: Zafar Reyes on 27-38-7427Pjyndfvtb (Bld) [#/Vol]270 10*3/cWUpmwzd576-833 [facility] HospitalComment on above:Performed By: #### CBC, CMP, LIPID, [id number], FOL, B12, A1C WTH eA #### [facility] [address] [place] [address] USAPotassium [Moles/volume] in Serum or PlasmaOrdered By: Zafar Reyes on 56-62-2616Tvwtezitd [Moles/Vol]4.5 mmol/LNormal3.5-5.1FOhioHealth Doctors HospitalComment on above:Performed By: #### CBC, CMP, LIPID, [id number], FOL, B12, A1C WTH eA #### [facility] [address] [place] [id number] USAProtein Test strip (U) [Mass/Vol]Ordered By: Zafar Reyes on 15-84-0353Oijuuta (U) [Mass/Vol]NegativeNegativeOhio Valley HospitalProtein [Mass/volume] in Serum or PlasmaOrdered By: Zafar Reyes on 64-63-5748Vtvevxf [Mass/Vol]6.8 g/dLNormal6.4-8.9[facility] HospitalComment on above:Performed By: #### CBC, CMP, LIPID, [id number], FOL, B12, A1C WTH eA #### [facility] [address] [place] [address] USASerum globulin measurement by calculation (mass/volume) Ordered By: Zafar Reyes on 87-20-7264Feznfdws (S) [Mass/Vol]2.2 g/dLNormal [facility] HospitalComment on above:Performed By: #### CBC, CMP, LIPID, [id number], FOL, B12, A1C WTH eA #### [facility] [address] [place] [id number] USASerum or plasma albumin/globulin mass ratioOrdered By: Zafar Reyes on 73-77-7512Uowltma/Globulin [Mass ratio]2.1 {ratio}Normal [facility] HospitalComment on above:Performed By: #### CBC, CMP, LIPID, [id number], FOL, B12, A1C [facility] eA #### [facility] [address] [place] [address] USASerum or plasma anion gap determinationOrdered By: Zafar Reyes on 67-85-2867Ltlpo gap [Moles/Vol]12.0 mmol/LNormal6.0-15.0[facility] HospitalComment on above:Performed By: #### CBC, CMP, LIPID, [id number], FOL, B12, A1C [facility] eA #### [place] [address] USASerum or plasma total cholesterol/high density lipoprotein (HDL) cholesterol mass ratOrdered By: Zafar Reyes on 05-03-2025 Cholesterol.total/Cholesterol in HDL [Mass ratio]2.2 {ratio}Normal<5.0Ohio Valley HospitalComment on above:Performed By: #### CBC, CMP, LIPID, [id number], FOL, B12, A1C [facility] eA #### [place] [id number] USASodium [Moles/volume] in Serum or PlasmaOrdered By: Zafar Reyes on 00-51-8654Ngdwcu [Moles/Vol]141 mmol/RPbjqet331-118YjhxubzzxOhio Valley HospitalComment on above:Performed By: #### CBC, CMP, LIPID, [id number], FOL, B12, A1C [facility] eA #### [place] [id number] USASpecific gravity Test strip (U) [Rel density]Ordered By: Zafar Reyes on 30-75-1322Krqpjxcs gravity (U) [Rel density]1.0171.001-1.030 [facility] Valley HospitalThyrotropin [Units/volume] in Serum or Plasma Ordered By: Zafar Reyes on 74-81-8519ITZ Qn1.50 m[IU]/LNormal0.45-5.33[facility] HospitalComment on above:Result Comment: PERFORMED BY: [place] [address] PATHOLOGIST DIRECTOR OF SERVICES ROSITA BHATTI M.D.Performed By: #### CBC, CMP, LIPID, [id number], FOL, B12, A1C [facility] eA #### [place] [address] USATriglyceride [Mass/volume] in Serum or PlasmaOrdered By: Zafar Reyes on 39-08-4470Xonuilpdvizx [Mass/Vol]71 mg/dL0-149Ohio Valley HospitalComment on above:TRIG ATP III CLASSIFICATIONTRIG less than 150 mg/dL NormalTRIG 150-199 mg/dL Borderline highTRIG 200-500 mg/dL High TRIG greater than 500 mg/dL Very highStandard traceable to the Center for Disease Co nrtrol and Prevention (CDC) test method.Urea nitrogen [Mass/volume] in Serum or PlasmaOrdered By: Zafar Reyes on 95-69-0568Pwji nitrogen [Mass/Vol]22 mg/dL Normal7-25Ohio Valley HospitalComment on above:Performed By: #### CBC, CMP, LIPID, [id number], FOL, B12, A1C [facility] eA #### [place] [id number] USAUrinalysison 80-20-2996Xchtjbprz,UrineNegativeNormal NegativeThe [facility] Physician GroupComment on above:Order Comment: Name Collection Type:: Clean-Voided MidstreamPerformed By: #### UA, CUU #### [address] [address] USAGlucose Ql (U)NormalNormalNormalThe [facility] Physician GroupComment on above:Order Comment: Name Collection Type:: Clean-Voided MidstreamPerformed By: #### UA, CUU #### [place] [address] USANitrite,UrineNegativeNormalNegativeThe [facility] Physician GroupComment on above:Order Comment: Name Collection Type:: Clean-Voided MidstreamPerformed By: #### UA, CUU #### [place] [address] USAOccult Blood,UrineNegativeNormalNegativeThe [facility] Physician GroupComment on above:Order Comment: Name Collection Type:: Clean- Voided MidstreamResult Comment: PERFORMED BY: [place] [address] PATHOLOGIST DIRECTOR OF SERVICES ROSITA BHATTI M.D.Performed By: #### UA, CUU #### [place] [address] USAProtein,UrineNegativeNormalNegativeThe [facility] Physician GroupComment on above:Order Comment: Name Collection Type:: Clean-Voided MidstreamPerformed By: #### UA, CUU #### [place] [address] USASpecificy [place],Urine1.422Bwqhlz1.001-1.030The [facility] Physician GroupComment on above:Order Comment: Name Collection Type:: Clean- Voided MidstreamPerformed By: #### UA, CUU #### [place] [address] USAUrobilinogen,UrineNormalNormalNormalThe [facility] Physician GroupComment on above:Order Comment: Name Collection Type:: Clean- Voided MidstreamPerformed By: #### UA, CUU #### [place] [address] USAUrine Cultureon 27-21-0738Crgjispp identified Cx Nom (U) 25,000 colonies/ml mixed bacterial skin contaminants 2 Days PERFORMED BY: [place] [address] PATHOLOGIST DIRECTOR OF SERVICES ROSITA BHATTI M.D.NormalMorton Plant Hospital Physician GroupComment on above: Performed By: #### UA, CUU #### [place] [address] USAUrine cultureOrdered By: Zafar Reyes on 05-03-2025 Bacteria identified Cx Nom (U)2 DaysOhio Valley Hospital Urobilinogen Test strip (U) [Mass/Vol]Ordered By: Zafar Reyes on 05-03-2025 Urobilinogen (U) [Mass/Vol]Normal mg/dLNormalOhio Valley Hospital Vit. B12/Folate Profileon 19-74-3198Zweuhd6.8 ng/mLNormal>5.9The [facility] Physician GroupComment on above:Result Comment: Folate reference range: >5.9 ng/ml The WHO technical consultation on folate and vitamin b12 deficiencies has determined that folate concentrations less than 4 ng/ml are considered deficient.Performed By: #### CBC, CMP, LIPID, [id number], FOL, B12, A1C WTH eA #### [facility] [address] [place] [id number] USAVitamin B12 ser/plasOrdered By: Zafar Reyes on 05-03-2025 Cobalamin (Vitamin B12) [Mass/Vol]674 pg/qDBukpgz246-418VcgqmhdbqOhio Valley HospitalComment on above:Performed By: #### CBC, CMP, LIPID, [id number], FOL, B12, A1C WTH eA #### [facility] [address] [place] [address] USApH of Urine by Test stripOrdered By: Zafar Reyes on 58-26-1716iQ (U)6.5 [pH]Normal5.0-9.0[facility] HospitalComment on above:Order Comment: Name Collection Type:: Clean-Voided MidstreamPerformed By: #### UA, CUU #### [facility] [address] [place] [id number] USAMM screening mammo BI w/CADon [id number] screening mammo BI w/CAD[facility] [address] [place] [address] [place], [place] [id number] Mammography Report Signed Patient: Bibi Gordillo MR#: [id number] 22 : 1940 Acct:[id number] Age/Sex: 84 / F Adm Date: 03/29/25 Loc: [place] Room: Type: DEP CLI Attending Dr: Referral Self Ordering Provider: SELF,REFERRAL Date of Service: 03/29/25 Procedure(s): MM screening mammo BI w/CAD Accession Number(s): ([id number]) MM/MM screening mammo BI w/CAD: SCREENING Copies to: Zafar Reyes DO SELF,REFERRAL CLINICAL DATA: Screening for malignancy. BILATERAL SCREENING MAMMOGRAMS - FULL FIELD DIGITAL WITH TOMOSYNTHESIS AND CAD Tomosynthesis craniocaudal and mediolateral oblique views of both breasts were obtained using low- dose digital technique. Comparison is made to prior studies from 03/28/2024, 03/11/2023, 03/10/2022, and 03/03/2022. This examination was reviewed with the aid of CAD. There are scattered fibroglandular densities. Benign-appearing calcifications are present bilaterally. Benign-appearing lymph nodes are noted along the chest wall. There are no dominant masses, typically malignant calcifications or architectural distortion. There has been no significant interval change. MM/MM screening mammo BI w/CAD IMPRESSION: NO MAMMOGRAPHIC EVIDENCE OF MALIGNANCY. ROUTINE FOLLOW-UP IS RECOMMENDED IN ONE YEAR. RESULT CODE: 2 Benign Findings(s) DENSITY CODE: 2 (approximately 25-50% glandular) There are scattered areas of fibroglandular density. FOLLOW UP: 1YR The false-negative rate of mammography is approximately 10-percent. Management of a palpable abnormality must be based on clinical grounds. Patient was entered into a reminder system with a target due date for the next mammogram. Impression dictated by: Aguilar Hinton M.D. 03/29/2025 10:47 AM Dictation Location: [facility] Dictated By: Aguilar Hinton II, MD 03/29/25 1042 Signed By: 03/29/[address] [place] [address] Physician GroupMammography reportOrdered By: Aguilar Hinton on 22-45-8814Gajekswvba imaging [facility] [address] [place], [place] [id number] Mammography Report Signed Patient: Bibi Gordillo MR#: [id number] : 1940 Acct:[id number] Age/Sex: 84 / F Adm Date: 5 Loc: [place] Room: Type: [facility] Attending Dr: Referral Self Ordering Provider: SELF,REFERRAL Date of Service: 03/29/25 Procedure(s): MM screening mammo BI w/CAD Accession Number(s): ([id number]) MM/MM screening mammo BI w/CAD: SCREENING Copies to: Zafar Reyes,DO SELF,REFERRAL ~ CLINICAL DATA: Screening for malignancy. BILATERAL SCREENING MAMMOGRAMS - FULL FIELD DIGITAL WITH TOMOSYNTHESIS AND CAD Tomosynthesis craniocaudal and mediolateral oblique views of both breasts were obtained using low-dose digital technique. Comparison is made to prior studies from 03/28/2024, 03/11/2023, 03/10/2022, and 03/03/2022. This examination was reviewed with the aid of CAD. There are scattered fibroglandular densities. Benign-appearing calcifications are present bilaterally. Benign-appearing lymph nodes are noted along the chest wall. There are no dominant masses, typically malignant calcifications or architectural distortion. There has been no significant interval change. MM/MM screening mammo BI w/CAD IMPRESSION: NO MAMMOGRAPHIC EVIDENCE OF MALIGNANCY. ROUTINE FOLLOW-UP IS RECOMMENDED IN ONE YEAR. RESULT CODE: 2 Benign Findings(s) DENSITY CODE: 2 (approximately 25-50% glandular) There are scattered areas of fibroglandular density. FOLLOW UP: 1YR The false-negative rate of mammography is approximately 10-percent. Management of a palpable abnormality must be based on clinical grounds. Patient was entered into a reminder system with a target due date for the next mammogram. Impression dictated by: Aguilar Hinton M.D. 03/29/2025 10:47 AM Dictation Location: [facility] Dictated By: Aguilar Hinton II, MD 03/29/25 104 Signed By: 03/29/25 1047 [facility] Work Phone: No Panel Informationon [id number] HealthcareFolate [Mass/volume] in Serum or PlasmaOrdered By: Zafar Reyes on 80-99-3745Gpwgbt [Mass/Vol]Folate [Mass/volume] in Serum or Plasma>5.9[facility] HospitalComment on above:Folate reference range: >5.9 ng/mlThe WHO technical consultation on folate and vitamin b96tfizondqxcoc has determined that folate concentrations lessthan 4 ng/ml are considered deficient.Folate [Mass/Vol]12.4 ng/mL>5.9[facility] HospitalComment on above:Folate reference range: >5.9 ng/mlThe WHO technical consultation on folate and vitamin y71zmruhms ncies has determined that folate concentrations lessthan 4 ng/ml are considered deficient.Vit. B12/Folate Profileon 47-31-5740Iacayn38.4 ng/mLNormal>5.9The [facility] Physician GroupComment on above:Result Comment: Folate reference range: >5.9 ng/ml The WHO technical consultation on folate and vitamin b12 deficiencies has determined that folate concentrations less than 4 ng/ml are considered deficient. PERFORMED BY: [place] [address] PATHOLOGIST DIRECTOR OF SERVICES CORBY DOWNING M.D.Performed By: #### CBC, CMP, LIPID, [id number], FOL, B12, A1C WTH eA #### [facility] [address] [place] [address] USAVitamin B12 ser/plasOrdered By: Zafar Reyes on 02-01-2025 Cobalamin (Vitamin B12) [Mass/Vol]Vitamin B12 ser/rhnjQlst760-586Fbyobcwiw[address] [place], [place] [address]Cobalamin (Vitamin B12) [Mass/Vol]1043 pg/uUUqgb362-961 [facility] HospitalComment on above:Performed By: #### CBC, CMP, LIPID, [id number], FOL, B12, A1C WTH eA #### [facility] [address] [place] [address] USAEstimated glomerular filtration rate (GFR) non- Americanon 30-60-0670RBC/1.73 sq M.predicted among non-blacks MDRD (S/P/Bld) [Vol rate/Area]Estimated glomerular filtration rate (GFR) non- Low>=60 mL/min/1.73m 2FOhioHealth Doctors HospitalGFR/1.73 sq M.predicted among non-blacks MDRD (S/P/Bld) [Vol rate/Area]44 mL/min/{1.73_m2}Low>=60 mL/min/1.73m 2FOhioHealth Doctors HospitalLaboratory - Chemistry and Chemistry - challengeon 83-70-3439Fwotill [Mass/Vol]4.3 g/dL3.4-5.0[facility] HospitalCalcium [Mass/Vol]9.2 mg/dL8.5-10.1FOhioHealth Doctors HospitalChloride [Moles/Vol]101 mmol/I32-565TltsqeghgOhio Valley HospitalCO2 [Moles/Vol]28.8 mmol/L21.0-32.0[facility] Creatinine [Mass/Vol]1.18 mg/dLHigh0.55-1.02[facility] GFR/1.73 sq M.predicted MDRD (S/P/Bld) [Vol rate/Area]53 mL/min/{1.73_m2}Low>=60 mL/min/1.73m 2FOhioHealth Doctors HospitalGlucose [Mass/Vol]111 mg/dLHigh 74-106[facility] HospitalPotassium [Moles/Vol]4.4 mmol/L3.5-5.1 [facility] Hospitalodium [Moles/Vol]139 mmol/Q504-118CprxasjcqOhio Valley HospitalUrea nitrogen [Mass/Vol]31.0 mg/dLHigh7.0-18.0[facility] HospitalUrea nitrogen/Creatinine [Mass ratio]26.3 mg/mgOhio Valley HospitalNo Panel Informationon 288471-Gmdgwrj Vitamin D Total45.6 ng/mLOhio Valley HospitalComment on above:<20 ng/mL Vit D yixosfozl37-<30 ng/mL Vit D tdsqaflyyhyx69-111 ng/mL Vit D sufficient>100 ng/mL Potential ToxicityPhosphorus Level3.3 mg/dL2.6-4.7FMercy Health West Hospitalerum or plasma anion gap determinationon 34-27-9169Qkequ gap [Moles/Vol] Serum or plasma anion gap determinationOhio Valley HospitalAnion gap [Moles/Vol]13.6 mmol/LFOhioHealth Doctors HospitalA1C with Estimated Average Gluon 74-08-1423Ttdioca [Mass/Vol]111 mg/dLNoCatawba Valley Medical Center Physician GroupComment on above:Result Comment: PERFORMED BY: [address] [place] [address] PATHOLOGIST DIRECTOR OF SERVICES CORBY DOWNING M.D.Performed By: #### CBC, CMP, LIPID, [id number], FOL, B12, A1C WTH eA #### [facility] [address] [place] [address] XZLWrZ7a (Bld) [Mass fraction]5.5 %Normal4.3-5.6The [facility] Physician GroupComment on above:Result Comment: Increased risk for diabetes: 5.7 - 6.4 diabetes: >6.4 glycemic control for adults with diabetes: <7.0Performed By: #### CBC, CMP, LIPID, [id number], FOL, B12, A1C WTH eA #### [facility] [address] [place] [address] USAAlanine aminotransferase [Enzymatic activity/volume] in Serum or PlasmaOrdered By: Zafar Reyes on 13-63-2658GMK [Catalytic activity/Vol]Alanine aminotransferase [Enzymatic activity/volume] in Serum or PlasmaLow7-52[facility] HospitalAlbumin [Mass/volume] in Serum or Plasma by Bromocresol green (BCG) dye binding methoOrdered By: Zafar Reyes on 12-46-7514Lmeucmp BCG dye [Mass/Vol]Albumin [Mass/volume] in Serum or Plasma by Bromocresol green (BCG) dye binding metho3.5-5.7FOhioHealth Doctors HospitalAlkaline phosphatase [Enzymatic activity/volume] in Serum or PlasmaOrdered By: Zafar Reyes on 79-29-2762SRN [Catalytic activity/Vol]Alkaline phosphatase [Enzymatic activity/volume] in Serum or Jfhtao54-935ZplxqyvzpOhio Valley HospitalAspartate aminotransferase [Enzymatic activity/volume] in Serum or Plasma Ordered By: Zafar Reyes on 13-46-8878HUL [Catalytic activity/Vol]Aspartate aminotransferase [Enzymatic activity/volume] in Serum or Aumnxl59-19DizcdahqmOhio Valley HospitalBasophils Auto (Bld) [#/Vol]Ordered By: Zafar Reyes on 34-18-3990Gslhxsobt (Bld) [#/Vol]Automated basophil count0.0-0.2FOhioHealth Doctors HospitalBasophils/100 WBC Auto (Bld)Ordered By: Zafar Reyes on 24-09-6950Kjkqkvips/100 WBC (Bld)Automated basophil %.[facility] HospitalBilirubin.total [Mass/volume] in Serum or PlasmaOrdered By: Zafar Reyes on 53-81-5095Wyhxesgyu [Mass/Vol]Bilirubin.total [Mass/volume] in Serum or Plasma0.3-1.0[facility] HospitalBlood estimated average glucose determination by estimation from glycated hemoglobinOrdered By: Zafar Reyes on 18-79-3819Xszytck glucose Estimated from glycated hemoglobin (Bld) [Mass/Vol] Glucose mean value [Mass/volume] in Blood Estimated from glycated hemoglobin [facility] HospitalCalcium [Mass/volume] in Serum or PlasmaOrdered By: Zafar Reyes on 34-13-8733Ekoxzbe [Mass/Vol]Calcium [Mass/volume] in Serum or Plasma8.6-10.3FOhioHealth Doctors HospitalCarbon dioxide, total [Moles/volume] in Serum or PlasmaOrdered By: Zafar Reyes on 80-02-1108PN8 [Moles/Vol]Carbon dioxide, total [Moles/volume] in Serum or Xmzead15.0-31.0 [facility] HospitalChloride [Moles/volume] in Serum or Plasma Ordered By: Zafar Reyes on 39-90-7250Umynqdqm [Moles/Vol]Chloride [Moles/volume] in Serum or Grlmik33-318LjngtvyhbOhio Valley Hospital Cholesterol [Mass/volume] in Serum or PlasmaOrdered By: Zafar Reyes on 37-34-0024Spedpxgmeqs [Mass/Vol]Cholesterol [Mass/volume] in Serum or PlasmaHigh 140-200[facility] HospitalComment on above:Chol less than 200 mg/dl low riskChol 201-239 mg/dl borderline riskChol 240 mg/dl and greater high riskCholesterol in HDL [Mass/volume] in Serum or PlasmaOrdered By: Zafar Reyes on 66-54-3313Ckzxputkstk in HDL [Mass/Vol]Serum or plasma high density lipoprotein (HDL) cholesterol gybejklvpzxPfdn28-19SlwkbhczcOhio Valley HospitalComment on above:HDL CHOL ATP-III CLASSIFICATION Cardiovascular RiskHDL > or equal to 60 mg/dL LOWHDL < 40 mg/dL HIGHCholesterol in LDL Calc [Mass/Vol] Ordered By: Zafar Reyes on 50-46-3832Nmuneuxdgjp in LDL [Mass/Vol]Cholesterol in LDL [Mass/volume] in Serum or Plasma by calculationHigh0-100[facility] HospitalComment on above:LDL ATP III CLASSIFICATIONLDL less than 100 mg/dL OptimalLDL 100-129 mg/dL Near or above yzukoclKBN425-327 mg/dL Borderline highLDL 160-189 mg/dL HighLDL greater than 189 mg/dL Very high Cholesterol in VLDL Calc [Mass/Vol]Ordered By: Zafar Reyes on 10-26-2024 Cholesterol in VLDL [Mass/Vol]Cholesterol in VLDL [Mass/volume] in Serum or Plasma by calculationOhio Valley HospitalComplete Blood Count Auto Diffon 84-26-3173Dhgrcfueo (Bld) [#/Vol]0.1 10*3/uLNormal0.0-0.2The [facility] Physician GroupComment on above:Result Comment: PERFORMED BY: [place] [address] PATHOLOGIST DIRECTOR OF SERVICES CORBY DOWNING M.D.Performed By: #### CBC, CMP, LIPID, [id number], FOL, B12, A1C WTH eA #### [place] [address] USABasophils/100 WBC (Bld)0.8 %Normal.The [facility] Physician GroupComment on above:Performed By: #### CBC, CMP, LIPID, [id number], FOL, B12, A1C WTH eA #### [address] [address] USAEosinophils (Bld) [#/Vol]0.3 10*3/uLNormal0.0-0.45The [facility] Physician GroupComment on above:Performed By: #### CBC, CMP, LIPID, [id number], FOL, B12, A1C WTH eA #### [place] [id number] USAEosinophils/100 WBC (Bld)4.5 %Normal.The [facility] Physician GroupComment on above:Performed By: #### CBC, CMP, LIPID, [id number], FOL, B12, A1C WTH eA #### [facility] [address] [place] [address] USAErythrocyte distribution width (RBC) [Ratio]13.5 %Normal 11.9-15.3The [facility] Physician GroupComment on above:Performed By: #### CBC, CMP, LIPID, [id number], FOL, B12, A1C WTH eA #### [facility] [address] [place] [address] USAHematocrit (Bld) [Volume fraction]37.0 %Pjbkbz81.0-46.4The [facility] Physician GroupComment on above:Performed By: #### CBC, CMP, LIPID, [id number], FOL, B12, A1C WTH eA #### [place] [address] USAHemoglobin (Bld) [Mass/Vol]12.3 g/kRPcvwgd34.8-15.4The [facility] Physician GroupComment on above:Performed By: #### CBC, CMP, LIPID, [id number], FOL, B12, A1C WTH eA #### [place] [address] USALymphocytes (Bld) [#/Vol]2.3 10*3/uLNormal1.00-4.8The [facility] Physician GroupComment on above:Performed By: #### CBC, CMP, LIPID, [id number], FOL, B12, A1C WTH eA #### [facility] [address] [place] [address] USALymphocytes/100 WBC (Bld)33.5 %Normal.The [facility] Physician GroupComment on above:Performed By: #### CBC, CMP, LIPID, [id number], FOL, B12, A1C WTH eA #### [facility] [address] [place] [address] USAMCH (RBC) [Entitic mass]32.2 nfOypeem40.7-34.3The [facility] Physician GroupComment on above:Performed By: #### CBC, CMP, LIPID, [id number], FOL, B12, A1C WTH eA #### [place] [address] USAMCV (RBC) [Entitic vol]97.4 hJVgmzkh60-761Pvs [facility] Physician GroupComment on above:Performed By: #### CBC, CMP, LIPID, [id number], FOL, B12, A1C WTH eA #### [place] [address] USAMean Corpuscular HGB Conc33.1 g/rQTioiyn48.0-35.0The [facility] Physician GroupComment on above:Performed By: #### CBC, CMP, LIPID, [id number], FOL, B12, A1C WTH eA #### [place] [address] USAMonocytes (Bld) [#/Vol]0.6 10*3/uLNormal0.0-0.8The [facility] Physician GroupComment on above:Performed By: #### CBC, CMP, LIPID, [id number], FOL, B12, A1C WTH eA #### [place] [address] USAMonocytes/100 WBC (Bld)9.0 %Normal.The [facility] Physician GroupComment on above:Performed By: #### CBC, CMP, LIPID, [id number], FOL, B12, A1C WTH eA #### [place] [address] USANeutrophils (Bld) [#/Vol]3.6 10*3/uLNormal1.8-7.7The [facility] Physician GroupComment on above:Performed By: #### CBC, CMP, LIPID, [id number], FOL, B12, A1C WTH eA #### [place] [address] USANeutrophils/100 WBC (Bld)52.2 %Normal.The [facility] Physician GroupComment on above:Performed By: #### CBC, CMP, LIPID, [id number], FOL, B12, A1C WTH eA #### [facility] [address] [place] [address] USANRBC%0.2 /100{WBC}Normal0-0.5The [facility] Physician Group Comment on above:Performed By: #### CBC, CMP, LIPID, [id number], FOL, B12, A1C WTH eA #### [place] [address] USAPlatelet mean volume (Bld) [Entitic vol]8.0 fLNormal 6.3-10.7The [facility] Physician GroupComment on above:Performed By: #### CBC, CMP, LIPID, [id number], FOL, B12, A1C WTH eA #### [place] [address] USAPlatelets (Bld) [#/Vol]283 10*3/yNYoxbih328-250Hxj [facility] Physician GroupComment on above:Performed By: #### CBC, CMP, LIPID, [id number], FOL, B12, A1C WTH eA #### [place] [address] USARBC (Bld) [#/Vol]3.80 10*6/uLNormal3.60-5.00The [facility] Physician GroupComment on above:Performed By: #### CBC, CMP, LIPID, [id number], FOL, B12, A1C WTH eA #### [place] [address] USAWBC (Bld) [#/Vol]6.8 10*3/uLNormal3.8-11.6The [facility] Physician GroupComment on above:Performed By: #### CBC, CMP, LIPID, [id number], FOL, B12, A1C WTH eA #### [place] [address] USAComprehensive Metabolic Panelon 82-27-9201Aurdpes [Mass/Vol]5.0 g/dLNormal3.5-5.7The [facility] Physician GroupComment on above: Performed By: #### CBC, CMP, LIPID, [id number], FOL, B12, A1C WTH eA #### [facility] [address] [place] [address] USAAlbumin/Globulin [Mass ratio]2.2 {ratio}NormalThe [facility] Physician GroupComment on above:Performed By: #### CBC, CMP, LIPID, [id number], FOL, B12, A1C WTH eA #### [facility] [address] [place] [address] USAALP [Catalytic activity/Vol]56 U/LUsnjgh99-317Esh [facility] Physician GroupComment on above:Performed By: #### CBC, CMP, LIPID, [id number], FOL, B12, A1C WTH eA #### [place] [address] USAALT [Catalytic activity/Vol]6 U/LLow7-52The [facility] Physician GroupComment on above:Performed By: #### CBC, CMP, LIPID, [id number], FOL, B12, A1C WTH eA #### [place] [address] USAAnion gap [Moles/Vol]16.8 mmol/LHigh6.0-15.0The [facility] Physician GroupComment on above:Performed By: #### CBC, CMP, LIPID, [id number], FOL, B12, A1C WTH eA #### [place] [address] USAAST [Catalytic activity/Vol]13 U/TShhghm97-15Ole [facility] Physician GroupComment on above:Performed By: #### CBC, CMP, LIPID, [id number], FOL, B12, A1C WTH eA #### [place] [address] USABilirubin [Mass/Vol]0.7 mg/dLNormal0.3-1.0The [facility] Physician GroupComment on above:Performed By: #### CBC, CMP, LIPID, [id number], FOL, B12, A1C WTH eA #### [place] [address] USACalcium [Mass/Vol]10.0 mg/dLNormal8.6-10.3The [facility] Physician GroupComment on above:Performed By: #### CBC, CMP, LIPID, [id number], FOL, B12, A1C WTH eA #### [place] [address] USAChloride [Moles/Vol]101 mmol/PZbdtvk24-657Dvg [facility] Physician GroupComment on above:Performed By: #### CBC, CMP, LIPID, [id number], FOL, B12, A1C WTH eA #### [place] [address] USACO2 [Moles/Vol]29.7 mmol/REqwqur01.0-31.0The [facility] Physician GroupComment on above:Performed By: #### CBC, CMP, LIPID, [id number], FOL, B12, A1C WTH eA #### [place] [address] USACreatinine [Mass/Vol]0.91 mg/dLNormal0.60-1.20The [facility] Physician GroupComment on above:Performed By: #### CBC, CMP, LIPID, [id number], FOL, B12, A1C WTH eA #### [place] [address] USAGFR/1.73 sq M.predicted MDRD (S/P/Bld) [Vol rate/Area] mL/min/{1.73_m2}NormalThe [facility] Physician GroupComment on above:Performed By: #### CBC, CMP, LIPID, [id number], FOL, B12, A1C WTH eA #### [place] [address] USAGlobulin (S) [Mass/Vol]2.3 g/dLNormalThe [facility] Physician GroupComment on above:Performed By: #### CBC, CMP, LIPID, [id number], FOL, B12, A1C WTH eA #### [place] [address] USAGlucose [Mass/Vol]125 mg/yIVpmf71-396Rhg [facility] Physician GroupComment on above:Result Comment: Random Glucose Reference Range is dependent on time and content of last meal. Glucose of more than 200 mg/dL in a nonstressed, ambulatory subject supports the diagnosis of Diabetes Mellitus. ADA recommended reference rangePerformed By: #### CBC, CMP, LIPID, [id number], FOL, B12, A1C WTH eA #### [facility] [address] [place] [address] USAPotassium [Moles/Vol]4.5 mmol/LNormal3.5-5.1The [facility] Physician GroupComment on above:Performed By: #### CBC, CMP, LIPID, [id number], FOL, B12, A1C WTH eA #### [facility] [address] [place] [address] USAProtein [Mass/Vol]7.3 g/dLNormal6.4-8.9The [facility] Physician GroupComment on above:Performed By: #### CBC, CMP, LIPID, [id number], FOL, B12, A1C WTH eA #### [facility] [address] [place] [address] USASodium [Moles/Vol]143 mmol/RSbxvux438-551Geu [facility] Physician GroupComment on above:Performed By: #### CBC, CMP, LIPID, [id number], FOL, B12, A1C WTH eA #### [facility] [address] [place] [address] USAUrea nitrogen [Mass/Vol]21 mg/dLNormal7-25The [facility] Physician GroupComment on above:Performed By: #### CBC, CMP, LIPID, [id number], FOL, B12, A1C WTH eA #### [facility] [address] [place] [address] USACreatinine [Mass/volume] in Serum or PlasmaOrdered By: Zafar Reyes on 46-56-4254Ywmqsuavie [Mass/Vol]Creatinine [Mass/volume] in Serum or Plasma0.60-1.20[facility] HospitalEosinophils Auto (Bld) [#/Vol]Ordered By: Zafar Reyes on 74-97-9490Qxyfguifruv (Bld) [#/Vol]Automated eosinophil count0.0-0.45[facility] HospitalEosinophils/100 WBC Auto (Bld)Ordered By: Zafar Reyes on 69-39-6751Nfypylzabqd/100 WBC (Bld) Automated eosinophil %.[facility] HospitalErythrocyte distribution width Auto (RBC) [Ratio]Ordered By: Zafar Reyes on 85-95-6927Ngtazhznnrr distribution width (RBC) [Ratio]Erythrocyte distribution width [Ratio] by Automated count11.9-15.3FOhioHealth Doctors HospitalFolateon 10-26-2024 Syhsxs24.6 ng/mLNormal>5.9The [facility] Physician GroupComment on above:Result Comment: Folate reference range: >5.9 ng/ml The WHO technical consultation on folate and vitamin b12 deficiencies has determined that folate concentrations less than 4 ng/ml are considered deficient.Performed By: #### CBC, CMP, LIPID, [id number], FOL, B12, A1C WTH eA #### [facility] [address] [place] [address] USAFolate [Mass/volume] in Serum or PlasmaOrdered By: Zafar Reyes on 97-15-2143Tymiaf [Mass/Vol]Folate [Mass/volume] in Serum or Plasma>5.9 [facility] HospitalComment on above:Folate reference range: >5.9 ng/mlThe WHO technical consultation on folate and vitamin q17mtdkxlvglneu has determined that folate concentrations lessthan 4 ng/ml are considered deficient. Globulin Calc (S) [Mass/Vol]Ordered By: Zafar Reyes on 86-09-9769Pyipdyrt (S) [Mass/Vol]Serum globulin measurement by calculation (mass/volume)[facility] HospitalGlucose [Mass/volume] in Serum or PlasmaOrdered By: Zafar Reyes on 41-74-6398Rqaqmuc [Mass/Vol]Glucose [Mass/volume] in Serum or Plasma Bufx34-705KiajuajbnOhio Valley HospitalComment on above:ADA recommended reference rangeRandom Glucose Reference Range is dependent on time and content of last meal. Glucose of more than 200 mg/dL in a nonstressed, ambulatory subject supports the diagnosisof Diabetes Mellitus.Hematocrit Auto (Bld) [Volume fraction]Ordered By: Zafar Reyes on 17-95-5296Jdfjwwsipy (Bld) [Volume fraction]Hematocrit [Volume Fraction] of Blood by Automated count34.0-46.4 [facility] HospitalHemoglobin A1c/Hemoglobin.total in BloodOrdered By: Zafar Reyes on 59-16-5342SsY0k (Bld) [Mass fraction]Hemoglobin A1c percentage4.3-5.6FOhioHealth Doctors HospitalComment on above:Increased risk for diabetes: 5.7 - 6.4diabetes: >6.4glycemic control for adults with diabetes: <7.0Hemoglobin [Mass/volume] in BloodOrdered By: Zafar Reyes on 88-19-3251Cdlzkgdtra (Bld) [Mass/Vol]Hemoglobin [Mass/volume] in Blood11.8-15.4 [facility] HospitalLeukocytes [#/volume] corrected for nucleated erythrocytes in Blood by Automated counOrdered By: Zafar Reyes on 72-53-1080APM corrected for nucl RBC Auto (Bld) [#/Vol]Leukocytes [#/volume] corrected for nucleated erythrocytes in Blood by Automated coun3.8-11.6FOhioHealth Doctors HospitalLipid Panelon 93-62-2833Swbvzhllxwy [Mass/Vol]291 mg/tABhzm825-824 The [facility] Physician GroupComment on above:Result Comment: Chol less than 200 mg/dl low risk Chol 201-239 mg/dl borderline risk Chol 240 mg/dl and greater high riskPerformed By: #### CBC, CMP, LIPID, [id number], FOL, B12, A1C WTH eA #### [facility] [address] [place] [address] USACholesterol in HDL [Mass/Vol]109 mg/dLRexg67-75Rdd [facility] Physician GroupComment on above:Result Comment: HDL CHOL ATP-III CLASSIFICATION Cardiovascular Risk HDL > or equal to 60 mg/dL LOW HDL < 40 mg/dL HIGHPerformed By: #### CBC, CMP, LIPID, [id number], FOL, B12, A1C WTH eA #### [facility] [address] [place] [address] USACholesterol.total/Cholesterol in HDL [Mass ratio]2.7 {ratio}Normal<5.0The [facility] Physician GroupComment on above:Performed By: #### CBC, CMP, LIPID, [id number], FOL, B12, A1C WTH eA #### [facility] [address] [place] [address] USALDL Cholesterol,Mnrvpqjfpx245 mg/dLHigh0-100The [facility] Physician GroupComment on above:Result Comment: LDL ATP III CLASSIFICATION LDL less than 100 mg/dL Optimal LDL 100-129 mg/dL Near or above optimal LDL 130-159 mg/dL Borderline high LDL 160-189 mg/dL High LDL greater than 189 mg/dL Very highPerformed By: #### CBC, CMP, LIPID, [id number], FOL, B12, A1C WTH eA #### [facility] [address] [place] [address] USATriglyceride w/Hxcugj331 mg/dLNormal0-149The [facility] Physician GroupComment on above:Result Comment: TRIG ATP III CLASSIFICATION TRIG less than 150 mg/dL Normal TRIG 150-199 mg/dL Borderline high TRIG 200-500 mg/dL High TRIG greater than 500 mg/dL Very high Standard traceable to the Center for Disease Conrtrol and Prevention (CDC) test method.Performed By: #### CBC, CMP, LIPID, [id number], FOL, B12, A1C WTH eA #### [facility] [address] [place] [address] USAVLDL TTWIOTUKXJN18 mg/dLNormalThe [facility] Physician GroupComment on above:Performed By: #### CBC, CMP, LIPID, [id number], FOL, B12, A1C WTH eA #### [facility] [address] [place] [address] USALymphocytes Auto (Bld) [#/Vol]Ordered By: Zafar Reyes on 47-73-5089Atbxzxhzvyi (Bld) [#/Vol]Lymphocytes [#/volume] in Blood by Automated count1.00-4.8[facility] Valley HospitalLymphocytes/100 WBC Auto (Bld) Ordered By: Zafar Reyes on 61-72-2866Lvxxjcncxdv/100 WBC (Bld)Lymphocytes/100 leukocytes in Blood by Automated count.[facility] Auto (RBC) [Entitic mass]Ordered By: Zafar Reyes on 97-45-8306BKQ (RBC) [Entitic mass]MCH [Entitic mass] by Automated count24.7-34.3FOhioHealth Doctors HospitalMCHC Auto (RBC) [Mass/Vol]Ordered By: Zafar Reyes on 80-42-7896ITTW (RBC) [Mass/Vol]MCHC [Mass/volume] by Automated count32.0-35.0[facility] HospitalMCV Auto (RBC) [Entitic vol]Ordered By: Zafar Reyes on 10-26-2024 MCV (RBC) [Entitic vol]MCV [Entitic volume] by Automated -850HicosqpmbOhio Valley HospitalMonocytes Auto (Bld) [#/Vol]Ordered By: Zafar Reyes on 15-95-3894Pmwvzcwsg (Bld) [#/Vol]Automated blood monocyte count0.0-0.8[facility] HospitalMonocytes/100 WBC Auto (Bld)Ordered By: Zafar Reyes on 41-25-7184Ybcprlxim/100 WBC (Bld)Automated monocyte %.[facility] HospitalNeutrophils Auto (Bld) [#/Vol]Ordered By: Zafar Reyes on 10-26-2024 Neutrophils (Bld) [#/Vol]Neutrophils [#/volume] in Blood by Automated count 1.8-7.7FOhioHealth Doctors HospitalNeutrophils/100 WBC Auto (Bld)Ordered By: Zafar Reyes on 35-57-4899Ujxfrjnpqba/100 WBC (Bld)Automated neutrophil %. [facility] HospitalNo Panel InformationOrdered By: Zafar Reyes on 02-64-2178Cltwyaxaj GFR (CKD-EPI)> 60.0 mL/MinOhio Valley Hospital Pharmacy Creatinine Clearance (ChemN/AFOhioHealth Doctors HospitalNucleated erythrocytes [Presence] in Blood by Automated countOrdered By: Zafar Reyes on 74-87-7194Cmlkhsnpx RBC Auto Ql (Bld)Nucleated erythrocytes [Presence] in Blood by Automated count0-0.5FOhioHealth Doctors HospitalPlatelet mean volume Auto (Bld) [Entitic vol]Ordered By: Zafar Reyes on 94-94-0782Uivrxjyi mean volume (Bld) [Entitic vol]Platelet mean volume [Entitic volume] in Blood by Automated count6.3-10.7FOhioHealth Doctors HospitalPlatelets Auto (Bld) [#/Vol]Ordered By: Zafar Reyes on 93-13-8144Xbgxvznvh (Bld) [#/Vol]Platelets [#/volume] in Blood by Automated jmcly175-641ZixowguxfOhio Valley Hospital Potassium [Moles/volume] in Serum or PlasmaOrdered By: Zafar Reyes on 08-12-4319Zhizbjlwe [Moles/Vol]Potassium [Moles/volume] in Serum or Plasma 3.5-5.1FOhioHealth Doctors HospitalProtein [Mass/volume] in Serum or Plasma Ordered By: Zafar Reyes on 12-14-7938Xbnfqzr [Mass/Vol]Protein [Mass/volume] in Serum or Plasma6.4-8.9[facility] HospitalRBC Auto (Bld) [#/Vol] Ordered By: Zafar Reyes on 71-62-7845BFS (Bld) [#/Vol]Erythrocytes [#/volume] in Blood by Automated count3.60-5.00[facility] Hospitalerum or plasma albumin/globulin mass ratioOrdered By: Zafar Reyes on 10-26-2024 Albumin/Globulin [Mass ratio]Serum or plasma albumin/globulin mass ratio [facility] Hospitalerum or plasma anion gap determinationOrdered By: Zafar Reyes on 93-83-9314Zxfzt gap [Moles/Vol]Serum or plasma anion gap determinationHigh6.0-15.0[facility] Hospitalerum or plasma total cholesterol/high density lipoprotein (HDL) cholesterol mass ratOrdered By: Zafar Reyes on 79-97-9375Qvqorpishno.total/Cholesterol in HDL [Mass ratio]Serum or plasma total cholesterol/high density lipoprotein (HDL) cholesterol mass rat<5.0 [facility] Hospitalodium [Moles/volume] in Serum or PlasmaOrdered By: Zafar Reyes on 05-10-7455Ywggdy [Moles/Vol]Sodium [Moles/volume] in Serum or Uceaay560-156ZwduinlhyOhio Valley HospitalTriglyceride [Mass/volume] in Serum or PlasmaOrdered By: Zafar Reyes on 58-28-8591Ghioprqqvojx [Mass/Vol] Triglyceride [Mass/volume] in Serum or Plasma0-149[facility] HospitalComment on above:TRIG ATP III CLASSIFICATIONTRIG less than 150 mg/dL NormalTRIG 150-199 mg/dL Borderline highTRIG 200-500 mg/dL High TRIG greater than 500 mg/dL Very highStandard traceable to the Center for Disease Conrtrol and Prevention (CDC) test method.Urea nitrogen [Mass/volume] in Serum or Plasma Ordered By: Zafar Reyes on 57-64-9998Syau nitrogen [Mass/Vol]Urea nitrogen [Mass/volume] in Serum or Plasma04-27Ohio Valley HospitalVitamin B12 on 71-65-4521Oygnxvppv (Vitamin B12) [Mass/Vol]1861 pg/nMKvjk835-364Hln [facility] Physician GroupComment on above:Performed By: #### CBC, CMP, LIPID, [id number], FOL, B12, A1C WTH eA #### [facility] [address] [place] [address] [facility] MEDICAL CENTERBVitamin B12 ser/plasOrdered By: Zafar Reyes on 10-26-2024 Cobalamin (Vitamin B12) [Mass/Vol]Vitamin B12 ser/lcaoQnfx018-278JhwlfkrtjOhio Valley HospitalVitamin D 25 Hydroxy Totalon 53-05-3050Urbawws D 25 Hydroxy Total38.5 ng/qNGbgmzt36-708Uva [facility] Physician [facility] HospitalComment on above:Result Comment: VITAMIN D STATUS 25(OH)VITAMIN D RANGE (ng/mL) Deficient <20 Insufficient 20 to <30 Sufficient 30 to 100 Reference: Messi MF,Delvis NC, Brina HAYDEN, et al. Evaluation,treatment, and prevention of vitamin D deficiency; an Endocrine Society clinical practice guideline. JCEM. 2010; 96(7):1911-30. PERFORMED BY: [facility] [address] [place] [id number] PATHOLOGIST DIRECTOR OF SERVICES CORBY DOWNING M.D.Performed By: #### CBC, CMP, LIPID, [id number], FOL, B12, A1C WTH eA #### [facility] [address] [place] [address] USAVitamin D+Metabolites [Mass/volume] in Serum or Plasma Ordered By: Zafar Reyes on 54-45-8239Ixwbnbz D+Metabolites [Mass/Vol]Vitamin D+Metabolites [Mass/volume] in Serum or Gfyxkv27-336UoitupcapOhio Valley HospitalComment on above:VITAMIN D STATUS 25(OH)VITAMIN D RANGE (ng/mL) Deficient <20 Insufficient 20 to <44Nvnxnlyovf14 to 100Reference: Messi THOMPSON,Delvis SCHAFER, Brina HAYDEN, et al. Evaluation,treatment, and prevention of vitamin D deficiency; an Endocrine Society clinical practice guideline. JCEM. 2010; 96 (7):1911-30.WBC Auto (Bld) [#/Vol]Ordered By: Zafar Reyes on 10-31-5705MAS (Bld) [#/Vol]Leukocytes [#/volume] in Blood by Automated count3.8-11.6FOhioHealth Doctors HospitalAlbumin [Mass/volume] in Serum or Plasma by Bromocresol green (BCG) dye binding methoOrdered By: Maxim Hughes on 01-63-5321Tgdwsye BCG dye [Mass/Vol]4.4 g/dL3.5-5.7FOhioHealth Doctors HospitalCalcium [Mass/volume] in Serum or PlasmaOrdered By: Maxim Sanchezgh on 74-15-5494Xtrpwug [Mass/Vol]10.5 mg/dLHigh8.6-10.3FOhioHealth Doctors HospitalCarbon dioxide, total [Moles/volume] in Serum or PlasmaOrdered By: Maxim Hughes on 07-18-2024 CO2 [Moles/Vol]27.3 mmol/L21.0-31.0[facility] HospitalChloride [Moles/volume] in Serum or PlasmaOrdered By: Maxim Hughes 79-32-8969Egpiizkd [Moles/Vol]105 mmol/Y89-454EdwegsevtOhio Valley HospitalCreatinine [Mass/volume] in Serum or PlasmaOrdered By: Maxim Hughes on 07-18-2024 Creatinine [Mass/Vol]1.07 mg/dL0.60-1.20[facility] HospitalGlucose [Mass/volume] in Serum or PlasmaOrdered By: Maxim Hughes on 49-70-3757Xzkiabd [Mass/Vol]99 mg/rH51-738ThqvvhqxqOhio Valley HospitalComment on above:ADA recommended reference rangeRandom Glucose Reference Range is dependent on time and content of last meal. Glucose of more than 200 mg/dL in a nonstressed, ambulatory subject supports the diagnosisof Diabetes Mellitus.No Panel InformationOrdered By: Maxim Hughes on 71-62-0751Udcqispqf GFR (CKD-EPI)52.185 mL/MinOhio Valley HospitalPharmacy Creatinine Clearance (ChemN/A [facility] HospitalPhosphate [Mass/volume] in Serum or Plasma Ordered By: Maxim Hughes on 88-33-9650Uokgdzver [Mass/Vol]4.0 mg/dL2.5-4.5 [facility] HospitalPotassium [Moles/volume] in Serum or Plasma Ordered By: Maxim Hughes 35-59-1227Bwomwrbdj [Moles/Vol]4.7 mmol/L3.5-5.1 [facility] Hospitalerum or plasma anion gap determinationOrdered By: Maxim Hughes 12-92-7527Vxmui gap [Moles/Vol]13.4 mmol/L6.0-15.0[facility] Hospitalodium [Moles/volume] in Serum or PlasmaOrdered By: Maxim Hughes 00-12-2225Ruanwa [Moles/Vol]141 mmol/F382-193VrwljgfbyOhio Valley HospitalUrea nitrogen [Mass/volume] in Serum or PlasmaOrdered By: Maxim Hughes 38-01-2939Fzwz nitrogen [Mass/Vol]29 mg/dLHigh7-25Ohio Valley HospitalVitamin D+Metabolites [Mass/volume] in Serum or PlasmaOrdered By: Maxim Hughes on 84-77-3616Khmmmva D+Metabolites [Mass/Vol]60.1 ng/eG61-652 [facility] HospitalComment on above:VITAMIN D STATUS 25(OH)VITAMIN D RANGE (ng/mL) Deficient <20 Insufficient 20 to <87Fjicjrajbv15 to 100Reference: Messi THOMPSON,Delvis SCHAFER, Brina HAYDEN, et al. Evaluation,treatment, and prevention of vitamin D deficiency; an Endocrine Society clinical practice guideline. JCEM. 2010; 96(7):1911-30.Calcium [Mass/volume] in Serum or PlasmaOrdered By: Zafar Reyes on 95-60-8437Hbmoqjn [Mass/Vol]9.9 mg/dL8.6-10.3FOhioHealth Doctors HospitalCarbon dioxide, total [Moles/volume] in Serum or PlasmaOrdered By: Zafar Reyes on 27-17-1692LD4 [Moles/Vol]28.2 mmol/L21.0-31.0[facility] HospitalChloride [Moles/volume] in Serum or PlasmaOrdered By: Zafar Reyes on 02-13-6760Sifbojjr [Moles/Vol]104 mmol/H30-180MkdbnpgkhOhio Valley HospitalCreatinine [Mass/volume] in Serum or PlasmaOrdered By: Zafar Reyes on 68-38-5543Ykrqtphtcz [Mass/Vol]0.98 mg/dL0.60-1.20[facility] HospitalGlucose [Mass/volume] in Serum or PlasmaOrdered By: Zafar Reyes on 92-73-4161Dypxmvb [Mass/Vol]123 mg/dQKmxb01-939McrddcfidOhio Valley HospitalComment on above: ADA recommended reference rangeRandom Glucose Reference Range is dependent on time and content of last meal. Glucose of more than 200 mg/dL in a nonstressed, ambulatory subject supports the diagnosisof Diabetes Mellitus.No Panel InformationOrdered By: Zafar Reyes on 21-30-4156Zomwwbexo GFR (CKD-EPI)57.987 mL/MinOhio Valley HospitalPharmacy Creatinine Clearance (ChemN/A [facility] HospitalPotassium [Moles/volume] in Serum or Plasma Ordered By: Zafar Reyes on 68-41-1695Sccsvydrt [Moles/Vol]4.7 mmol/L3.5-5.1 [facility] Hospitalerum or plasma anion gap determinationOrdered By: Zafar Reyes on 73-51-5288Evxhf gap [Moles/Vol]13.5 mmol/L6.0-15.0[facility] Hospitalodium [Moles/volume] in Serum or PlasmaOrdered By: Zafar Reyes 53-71-4385Omlyiv [Moles/Vol]141 mmol/D867-669WpqbhvllqOhio Valley HospitalUrea nitrogen [Mass/volume] in Serum or PlasmaOrdered By: Zafar Reyes on 89-69-0398Ilte nitrogen [Mass/Vol]17 mg/dL7-25Ohio Valley HospitalCalcium [Mass/volume] in Serum or PlasmaOrdered By: Zafar Reyes on 21-57-8808Loojtrn [Mass/Vol]9.7 mg/dL8.6-10.3FOhioHealth Doctors HospitalCarbon dioxide, total [Moles/volume] in Serum or PlasmaOrdered By: Zafar Reyes on 92-91-5886HX9 [Moles/Vol]29.7 mmol/L21.0-31.0[facility] HospitalChloride [Moles/volume] in Serum or PlasmaOrdered By: Zafar Reyes on 88-89-4298Acezgdci [Moles/Vol]103 mmol/K41-705EvqbugsugOhio Valley HospitalCreatinine [Mass/volume] in Serum or PlasmaOrdered By: Zafar Reyes on 13-72-3945Ojctmtmmnl [Mass/Vol]1.07 mg/dL0.60-1.20[facility] HospitalGlucose [Mass/volume] in Serum or PlasmaOrdered By: Zafar Reyes on 94-90-3861Xivdltm [Mass/Vol]127 mg/rRZcvs51-067UekrbzesrOhio Valley Hospital Comment on above:ADA recommended reference rangeRandom Glucose Reference Range is dependent on time and content of last meal. Glucose of more than 200 mg/dL in a nonstressed, ambulatory subject supports the diagnosisof Diabetes Mellitus.No Panel InformationOrdered By: Zafar Reyes on 34-30-8632Ilngalljd GFR (CKD-EPI) 52.185 mL/MinOhio Valley HospitalPharmacy Creatinine Clearance (ChemN/AFOhioHealth Doctors HospitalPotassium [Moles/volume] in Serum or PlasmaOrdered By: Zafar Reyes on 47-59-4856Dajsgvtas [Moles/Vol]4.4 mmol/L 3.5-5.1FMercy Health West Hospitalerum or plasma anion gap determination Ordered By: Zafar Reyes on 07-41-3430Hxljf gap [Moles/Vol]12.7 mmol/L6.0-15.0 [facility] Hospitalodium [Moles/volume] in Serum or PlasmaOrdered By: Zafar Reyes on 00-71-4364Tooxpz [Moles/Vol]141 mmol/G289-743AgwolofroOhio Valley HospitalUrea nitrogen [Mass/volume] in Serum or PlasmaOrdered By: Zafar Reyes on 39-88-5732Mhgk nitrogen [Mass/Vol]22 mg/dL7-25[facility] Valley HospitalAlanine aminotransferase [Enzymatic activity/volume] in Serum or PlasmaOrdered By: Zafar Reyes on 52-61-9430QJU [Catalytic activity/Vol]6 U/LLow7-52[facility] HospitalAlbumin [Mass/volume] in Serum or Plasma by Bromocresol green (BCG) dye binding methoOrdered By: Zafar Reyes on 01-84-1698Zmiwlef BCG dye [Mass/Vol]4.5 g/dL3.5-5.7FOhioHealth Doctors HospitalAlkaline phosphatase [Enzymatic activity/volume] in Serum or PlasmaOrdered By: Zafar Reyes on 36-21-5255GNE [Catalytic activity/Vol]35 U/L 34-104Ohio Valley HospitalAspartate aminotransferase [Enzymatic activity/volume] in Serum or PlasmaOrdered By: Zafar Reyes on 77-47-3413FWJ [Catalytic activity/Vol]11 U/QIei23-62JvjjnyugxOhio Valley HospitalBacteria [Presence] in Urine by AutomatedOrdered By: Zafar Reyes on 14-57-2390Orhpnogh Auto Ql (U)Rare [HPF]None SeenOhio Valley HospitalBasophils Auto (Bld) [#/Vol]Ordered By: Zafar Reyes on 24-71-5421Nygyadwpy (Bld) [#/Vol]0.0 10*3/uL0.0-0.2FOhioHealth Doctors HospitalBasophils/100 WBC Auto (Bld) Ordered By: Zafar Reyes on 85-92-5567Fvkoxeniw/100 WBC (Bld)0.7 %.Ohio Valley HospitalBilirubin Test strip Ql (U)Ordered By: Zafar Reyes on 46-95-3909Egeyjqkkj Ql (U)NegativeNegativeOhio Valley Hospital Bilirubin.total [Mass/volume] in Serum or PlasmaOrdered By: Zafar Reyes on 65-03-6785Cwdipxwjx [Mass/Vol]0.6 mg/dL0.3-1.0[facility] Calcium [Mass/volume] in Serum or PlasmaOrdered By: Zafar Reyes on 04-24-2024 Calcium [Mass/Vol]9.2 mg/dL8.6-10.3FOhioHealth Doctors HospitalCarbon dioxide, total [Moles/volume] in Serum or PlasmaOrdered By: Zafar Reyes on 13-98-8394ME3 [Moles/Vol]28.5 mmol/L21.0-31.0[facility] Chloride [Moles/volume] in Serum or PlasmaOrdered By: Zafar Reyes on 04-24-2024 Chloride [Moles/Vol]102 mmol/U51-096CtobsspywOhio Valley HospitalCholesterol [Mass/volume] in Serum or PlasmaOrdered By: Zafar Reyes on 04-24-2024 Cholesterol [Mass/Vol]231 mg/aPKorp764-690RqvceadbnOhio Valley Hospital Comment on above:Chol less than 200 mg/dl low riskChol 201-239 mg/dl borderline riskChol 240 mg/dl and greater high riskCholesterol in LDL Calc [Mass/Vol] Ordered By: Zafar Reyes on 01-21-0013Sgbuhvuxapv in LDL [Mass/Vol]112 mg/dLHigh 0-100[facility] HospitalComment on above:LDL ATP III CLASSIFICATIONLDL less than 100 mg/dL OptimalLDL 100-129 mg/dL Near or above enywvoyCQM113-451 mg/dL Borderline highLDL 160-189 mg/dL HighLDL greater than 189 mg/dL Very highCholesterol in VLDL Calc [Mass/Vol]Ordered By: Zafar Reyes on 19-95-6228Fpifaieyydv in VLDL [Mass/Vol]17 mg/dLOhio Valley HospitalColor Auto (U)Ordered By: Zafar Reyes on 07-94-3805Wxuzn (U)Light-yellow YellowOhio Valley HospitalCreatinine [Mass/volume] in Serum or PlasmaOrdered By: Zafar Reyes on 13-85-8986Uitoiczyyi [Mass/Vol]0.91 mg/dL 0.60-1.20[facility] HospitalEosinophils Auto (Bld) [#/Vol]Ordered By: Zafar Reyes on 76-16-7270Kodmpsczakl (Bld) [#/Vol]0.4 10*3/uL0.0-0.45 [facility] HospitalEosinophils/100 WBC Auto (Bld)Ordered By: Zafar Reyes on 94-00-3082Hvurofpwxnj/100 WBC (Bld)7.2 %.[facility] HospitalEpithelial cells.squamous [#/area] in Urine sediment by Automated count Ordered By: Zafar Reyes on 89-56-2129Dplbnktdaa cells.squamous Auto (Urine sed) [#/Area]3-4 [HPF]High0-2FOhioHealth Doctors HospitalErythrocyte distribution width Auto (RBC) [Ratio]Ordered By: Zafar Reyes on 04-24-2024 Erythrocyte distribution width (RBC) [Ratio]14.0 %11.9-15.3FOhioHealth Doctors HospitalErythrocytes [#/area] in Urine sediment by Automated countOrdered By: Zafar Reyes on 66-08-9786RGU Auto (Urine sed) [#/Area]None seen [HPF]0-4 [facility] HospitalFolate [Mass/volume] in Serum or PlasmaOrdered By: Zafar Reyes on 40-99-0601Umrxkv [Mass/Vol]6.8 ng/mL>5.9[facility] HospitalComment on above:Folate reference range: >5.9 ng/mlThe WHO technical consultation on folate and vitamin r48icsqhokahued has determined that folate concentrations lessthan 4 ng/ml are considered deficient.Globulin Calc (S) [Mass/Vol]Ordered By: Zafar Reyes on 39-89-8820Zwrxdesi (S) [Mass/Vol]2.2 g/dLOhio Valley HospitalGlucose [Mass/volume] in Serum or Plasma Ordered By: Zfaar Reyes on 21-23-6670Tdchzds [Mass/Vol]115 mg/sMFylg85-502 [facility] HospitalComment on above:ADA recommended reference rangeRandom Glucose Reference Range is dependent on time and content of last meal. Glucose of more than 200 mg/dL in a nonstressed, ambulatory subject supports the diagnosisof Diabetes Mellitus.Glucose [Mass/volume] in Urine by Test stripOrdered By: Zafar Reyes on 31-82-6217Qfejvpy Test strip (U) [Mass/Vol]Normal mg/dLNormalOhio Valley HospitalGlucose mean value [Mass/volume] in Blood Estimated from glycated hemoglobinOrdered By: Zafar Reyes on 62-34-2992Fjdesjd glucose Estimated from glycated hemoglobin (Bld) [Mass/Vol]123 mg/dLOhio Valley HospitalHematocrit Auto (Bld) [Volume fraction]Ordered By: Zafar Reyes on 50-67-1368Islsexucye (Bld) [Volume fraction]35.5 %34.0-46.4FOhioHealth Doctors HospitalHemoglobin A1c percentageOrdered By: Zafar Reyes on 51-78-6997GlO4l (Bld) [Mass fraction]5.9 % High4.3-5.6FOhioHealth Doctors HospitalComment on above:Increased risk for diabetes: 5.7 - 6.4diabetes: >6.4glycemic control for adults with diabetes: &l t;7.0Hemoglobin Test strip Ql (U)Ordered By: Zafar Reyes on 04-24-2024 Hemoglobin Ql (U)NegativeNegWright-Patterson Medical CenterHemoglobin [Mass/volume] in BloodOrdered By: Zafar Reyes on 13-56-6080Dewslgvmsw (Bld) [Mass/Vol]12.0 g/dL11.8-15.4FOhioHealth Doctors HospitalHyaline casts [#/area] in Urine sediment by Automated countOrdered By: Zafar Reyes on 64-16-0971Kktnlqu casts Auto (Urine sed) [#/Area]None [LPF]0-8[facility] HospitalKetones Test strip Ql (U)Ordered By: Zafar Reyes on 04-24-2024 Ketones Ql (U)NegativeNegWright-Patterson Medical CenterLeukocyte esterase [Presence] in Urine by Test stripOrdered By: Zafar Reyes on 04-24-2024 Leukocyte esterase Test strip Ql (U)NegativeNegWright-Patterson Medical CenterLeukocytes [#/area] in Urine sediment by Automated countOrdered By: Zafar Reyes on 82-53-2135TRH Auto (Urine sed) [#/Area]None seen [HPF]0-4FOhioHealth Doctors HospitalLeukocytes [#/volume] corrected for nucleated erythrocytes in Blood by Automated counOrdered By: Zafar Reyes on 79-75-7362ICO corrected for nucl RBC Auto (Bld) [#/Vol]5.9 10*3/uL3.8-11.6FOhioHealth Doctors HospitalLymphocytes Auto (Bld) [#/Vol]Ordered By: Zafar Reyes on 94-18-5971Anpxccxzcwe (Bld) [#/Vol]2.0 10*3/uL1.00-4.8[facility] HospitalLymphocytes/100 WBC Auto (Bld)Ordered By: Zafar Reyes on 04-24-2024 Lymphocytes/100 WBC (Bld)33.1 %.[facility] HospitalH Auto (RBC) [Entitic mass]Ordered By: Zafar Reyes on 17-18-0693VZC (RBC) [Entitic mass]32.4 pg24.7-34.3FOhioHealth Doctors HospitalMCHC Auto (RBC) [Mass/Vol]Ordered By: Zafar Reyes on 84-90-9163XATB (RBC) [Mass/Vol]33.7 g/dL32.0-35.0[facility] HospitalMCV Auto (RBC) [Entitic vol]Ordered By: Zafar Reyes on 16-53-2645PAA (RBC) [Entitic vol]96.1 tQ08-083ZscsgwqpeOhio Valley Hospital Monocytes Auto (Bld) [#/Vol]Ordered By: Zafar Reyes on 60-15-6148Jrqdjuxck (Bld) [#/Vol]0.6 10*3/uL0.0-0.8[facility] HospitalMonocytes/100 WBC Auto (Bld)Ordered By: Zafar Reyes on 21-30-6670Qoqvbemlw/100 WBC (Bld)9.6 % .[facility] HospitalMucus [Presence] in Urine by AutomatedOrdered By: Zafar Reyes on 21-92-0763Hudkk Auto Ql (U)Rare [LPF][facility] HospitalNeutrophils Auto (Bld) [#/Vol]Ordered By: Zafar Reyes on 53-49-2271Xzdovxqmptq (Bld) [#/Vol]2.9 10*3/uL1.8-7.7FOhioHealth Doctors HospitalNeutrophils/100 WBC Auto (Bld)Ordered By: Zafar Reyes on 04-24-2024 Neutrophils/100 WBC (Bld)49.4 %.[facility] HospitalNitrite Test strip Ql (U)Ordered By: Zafar Reyes on 60-70-9173Tyjydlw Ql (U)NegativeNegative [facility] HospitalNo Panel InformationOrdered By: Zafar Reyes on 36-52-1702Nplzyfsdq GFR (CKD-EPI)> 60.0 mL/MinOhio Valley Hospital Pharmacy Creatinine Clearance (ChemN/[facility] HospitalNucleated erythrocytes [Presence] in Blood by Automated countOrdered By: Zaafr Reyes on 51-61-9258Hstpuejew RBC Auto Ql (Bld)0.0 /100{WBC}0-0.5FOhioHealth Doctors HospitalPlatelet mean volume Auto (Bld) [Entitic vol]Ordered By: Zafar Reyes on 54-17-4424Hcgbrdsj mean volume (Bld) [Entitic vol]8.3 fL6.3-10.7 [facility] HospitalPlatelets Auto (Bld) [#/Vol]Ordered By: Zafar Reyes on 60-70-9812Blnpemreh (Bld) [#/Vol]249 10*3/dF463-358WhjedsipbOhio Valley HospitalPotassium [Moles/volume] in Serum or PlasmaOrdered By: Zafar Reyes on 75-73-3390Aurpokxyt [Moles/Vol]4.6 mmol/L3.5-5.1FOhioHealth Doctors HospitalProtein Test strip (U) [Mass/Vol]Ordered By: Zafar Reyes on 17-81-0993Wltaskk (U) [Mass/Vol]NegativeNegativeOhio Valley HospitalProtein [Mass/volume] in Serum or PlasmaOrdered By: Zafar Reyes on 48-40-1297Tboiifq [Mass/Vol]6.7 g/dL6.4-8.9[facility] HospitalRBC Auto (Bld) [#/Vol]Ordered By: Zafar Reyes on 99-05-0684WWB (Bld) [#/Vol]3.70 10*6/uL3.60-5.00[facility] Hospitalerum or plasma albumin/globulin mass ratioOrdered By: Zafar Reyes on 04-24-2024 Albumin/Globulin [Mass ratio]2.0 {ratio}[facility] Hospitalerum or plasma anion gap determinationOrdered By: Zafar Reyes on 89-64-8927Mxgis gap [Moles/Vol]12.1 mmol/L6.0-15.0[facility] Hospitalerum or plasma high density lipoprotein (HDL) cholesterol measurementOrdered By: Zafar Reyes on 88-62-6281Mkgzqagupme in HDL [Mass/Vol]102 mg/eLQcmk73-02WxgfhavqxOhio Valley HospitalComment on above:HDL CHOL ATP-III CLASSIFICATION Cardiovascular RiskHDL > or equal to 60 mg/dL LOWHDL < 40 mg/dL HIGHSerum or plasma total cholesterol/high density lipoprotein (HDL) cholesterol mass ratOrdered By: Zafar Reyes on 40-90-9446Bebmuodwzye.total/Cholesterol in HDL [Mass ratio]2.3 {ratio}<5.0[facility] Hospitalodium [Moles/volume] in Serum or PlasmaOrdered By: Zafar Reyes on 28-95-0174Zclwjg [Moles/Vol]138 mmol/C416-675 [facility] Hospitalpecific gravity Test strip (U) [Rel density] Ordered By: Zafar Reyes on 39-82-7246Mzkjmqor gravity (U) [Rel density]1.013 1.001-1.030[facility] Valley HospitalThyrotropin [Units/volume] in Serum or PlasmaOrdered By: Zafar Reyes on 97-07-5853GQX Qn1.36 m[IU]/L0.45-5.33 [facility] HospitalTriglyceride [Mass/volume] in Serum or Plasma Ordered By: Zafar Reyes on 39-93-0718Wfnleyvwpiie [Mass/Vol]87 mg/dL0-149 [facility] HospitalComment on above:TRIG ATP III CLASSIFICATIONTRIG less than 150 mg/dL NormalTRIG 150-199 mg/dL Borderline highTRIG 200-500 mg/dL High TRIG greater than 500 mg/dL Very highStandard traceable to the Center for Disease Conrtrol and Prevention (CDC) test method. Urea nitrogen [Mass/volume] in Serum or PlasmaOrdered By: Zafar Reyes on 60-23-1062Vfzz nitrogen [Mass/Vol]18 mg/dL7-25[facility] Urine appearanceOrdered By: Zafar Reyes on 71-89-7910Njscbtjcwf (U)ClearClear [facility] HospitalUrine culture routineOrdered By: Zafar Reyes on 06-69-7018Vijaxgum identified Cx Nom (U)2 DaysOhio Valley HospitalUrobilinogen Test strip (U) [Mass/Vol]Ordered By: Zafar Reyes on 29-49-2668Qykalsntskcd (U) [Mass/Vol]Normal mg/dLNormalOhio Valley HospitalVitamin B12 ser/plasOrdered By: Zafar Reyes on 04-24-2024 Cobalamin (Vitamin B12) [Mass/Vol]1132 pg/qTMajs206-018XuedbszpvOhio Valley HospitalVitamin D+Metabolites [Mass/volume] in Serum or PlasmaOrdered By: Zafar Reyes on 06-07-8081Sancfmq D+Metabolites [Mass/Vol]47.5 ng/fO33-786 [facility] HospitalComment on above:VITAMIN D STATUS 25(OH)VITAMIN D RANGE (ng/mL) Deficient <20 Insufficient 20 to <31Ilzwfpqirv71 to 100Reference: Messi MF,Delvis NC, Brina HAYDEN, et al. Evaluation,treatment, and prevention of vitamin D deficiency; an Endocrine Society clinical practice guideline. JCEM. 2010; 96(7):1911-30.WBC Auto (Bld) [#/Vol]Ordered By: Zafar Reyes on 44-44-9371VRJ (Bld) [#/Vol]5.9 10*3/uL 3.8-11.6FOhioHealth Doctors HospitalpH Test strip (U)Ordered By: Zafar Reyes on 36-73-5961wH (U)6.0 [pH]5.0-9.0[facility] Alanine aminotransferase [Enzymatic activity/volume] in Serum or PlasmaOrdered By: KEIRY Rock on 45-58-7286MFU [Catalytic activity/Vol]13 U/L7-52 [facility] HospitalAlbumin [Mass/volume] in Serum or Plasma by Bromocresol green (BCG) dye binding methoOrdered By: CWS Matthew Rock on 95-29-8084Fdhgwvd BCG dye [Mass/Vol]4.9 g/dL3.5-5.7FOhioHealth Doctors HospitalAlkaline phosphatase [Enzymatic activity/volume] in Serum or PlasmaOrdered By: [facility] Matthew Rock on 98-13-1735WYN [Catalytic activity/Vol]42 U/L34-104 [facility] HospitalAspartate aminotransferase [Enzymatic activity/volume] in Serum or PlasmaOrdered By: [facility] Matthew Rock on 01-28-2024 AST [Catalytic activity/Vol]18 U/A66-48ZizckmmvbOhio Valley Hospital Basophils Auto (Bld) [#/Vol]Ordered By: [facility] Matthew Rock on 01-28-2024 Basophils (Bld) [#/Vol]0.0 10*3/uL0.0-0.2FOhioHealth Doctors Hospital Basophils/100 WBC Auto (Bld)Ordered By: [facility] Matthew Rock on 01-28-2024 Basophils/100 WBC (Bld)0.7 %.[facility] HospitalBilirubin.direct [Mass/volume] in Serum or PlasmaOrdered By: [facility] Matthew Rock on 01-28-2024 Bilirubin.direct [Mass/Vol]0.10 mg/dL0.03-0.18FOhioHealth Doctors Hospital Bilirubin.total [Mass/volume] in Serum or PlasmaOrdered By: [facility] Matthew Rock on 84-85-5614Tkqbxbcic [Mass/Vol]0.4 mg/dL0.3-1.0[facility] HospitalEosinophils Auto (Bld) [#/Vol]Ordered By: [facility] Matthew Rock on 21-89-8994Rdtczfvxjwk (Bld) [#/Vol]0.5 10*3/uLHigh0.0-0.45[facility] HospitalEosinophils/100 WBC Auto (Bld)Ordered By: [facility] Matthew Rock on 37-75-9100Srrjlnabtqn/100 WBC (Bld)6.9 %.[facility] Erythrocyte distribution width Auto (RBC) [Ratio]Ordered By: [facility] Matthew Rock on 67-67-2526Gopfuvgnkej distribution width (RBC) [Ratio]14.2 %11.9-15.3 [facility] HospitalGlobulin Calc (S) [Mass/Vol]Ordered By: KEIRY Rock on 48-47-7322Wuftnrra (S) [Mass/Vol]2.1 g/dLOhio Valley HospitalHematocrit Auto (Bld) [Volume fraction]Ordered By: KEIRY Rock on 05-19-4047Lydckzmkoc (Bld) [Volume fraction]35.6 %34.0-46.4FOhioHealth Doctors HospitalHemoglobin [Mass/volume] in BloodOrdered By: KEIRY Rock on 88-61-5079Rztxmqejuh (Bld) [Mass/Vol]11.7 g/dLLow11.8-15.4FOhioHealth Doctors HospitalLeukocytes [#/volume] corrected for nucleated erythrocytes in Blood by Automated counOrdered By: Dalia Rock on 67-55-9275TYL corrected for nucl RBC Auto (Bld) [#/Vol]6.9 10*3/uL3.8-11.6 [facility] HospitalLymphocytes Auto (Bld) [#/Vol]Ordered By: Dalia Rock on 00-19-1266Hkrfjerursc (Bld) [#/Vol]1.6 10*3/uL1.00-4.8 [facility] HospitalLymphocytes/100 WBC Auto (Bld)Ordered By: KEIRY Rock on 44-70-0198Rhuvtfrpscd/100 WBC (Bld)23.1 %.[facility] Auto (RBC) [Entitic mass]Ordered By: KEIRY Rock on 78-31-5065QNX (RBC) [Entitic mass]31.3 pg24.7-34.3FOhioHealth Doctors HospitalMCHC Auto (RBC) [Mass/Vol]Ordered By: KEIRY Rock on 01-28-2024 MCHC (RBC) [Mass/Vol]32.8 g/dL32.0-35.0[facility] HospitalMCV Auto (RBC) [Entitic vol]Ordered By: Dalia Rock on 02-97-9229HOU (RBC) [Entitic vol]95.6 nJ45-663FjdodrhwgOhio Valley HospitalMonocytes Auto (Bld) [#/Vol]Ordered By: Dalia Rock on 36-52-4216Ekfkbutky (Bld) [#/Vol]0.6 10*3/uL0.0-0.8[facility] HospitalMonocytes/100 WBC Auto (Bld) Ordered By: Dalia Rock on 02-81-0377Anzbbjbjt/100 WBC (Bld)8.4 %. [facility] HospitalNeutrophils Auto (Bld) [#/Vol]Ordered By: Dalia Rock on 21-81-3398Ttkvvbajidn (Bld) [#/Vol]4.2 10*3/uL1.8-7.7 [facility] HospitalNeutrophils/100 WBC Auto (Bld)Ordered By: Dalia Rock on 70-15-6828Iqieaehyzeo/100 WBC (Bld)60.9 %.[facility] HospitalNucleated erythrocytes [Presence] in Blood by Automated count Ordered By: Dalia Rock on 35-17-9290Cgzwrflkt RBC Auto Ql (Bld)0.1 /100{WBC}0-0.5FOhioHealth Doctors HospitalPlatelet mean volume Auto (Bld) [Entitic vol]Ordered By: Dalia Rock on 78-94-1804Joaxscxx mean volume (Bld) [Entitic vol]8.2 fL6.3-10.7FOhioHealth Doctors HospitalPlatelets Auto (Bld) [#/Vol]Ordered By: Dalia Rock on 23-23-0255Phiybahus (Bld) [#/Vol]261 10*3/bR441-643HouztaaedOhio Valley HospitalProtein [Mass/volume] in Serum or PlasmaOrdered By: Dalia Rock on 33-01-6344Ioykwsf [Mass/Vol]7.0 g/dL6.4-8.9[facility] HospitalRBC Auto (Bld) [#/Vol] Ordered By: [facility] Matthew Charmaine Odalys on 20-54-6683MSD (Bld) [#/Vol]3.73 10*6/uL 3.60-5.00[facility] Hospitalerum or plasma albumin/globulin mass ratioOrdered By: [facility] Matthew Rock on 36-61-3401Twhtcur/Globulin [Mass ratio] 2.3 {ratio}[facility] Hospitalerum or plasma non-glucuronidated bilirubin measurement (mass/volume)Ordered By: [facility] Matthew Rock on 01-28-2024 Bilirubin.indirect [Mass/Vol]0.3 mg/dLOhio Valley HospitalWBC Auto (Bld) [#/Vol]Ordered By: [facility] Matthew Rock on 71-03-6847RCW (Bld) [#/Vol]6.9 10*3/uL3.8-11.6FOhioHealth Doctors HospitalAlbumin [Mass/volume] in Serum or Plasma by Bromocresol green (BCG) dye binding methoOrdered By: Maxim Hughes on 41-54-0858Kpseyaa BCG dye [Mass/Vol]4.7 g/dL3.5-5.7FOhioHealth Doctors HospitalCalcium [Mass/volume] in Serum or PlasmaOrdered By: Maxim Hughes on 28-73-7569Znpprdl [Mass/Vol]10.1 mg/dL8.6-10.3FOhioHealth Doctors Hospital Carbon dioxide, total [Moles/volume] in Serum or PlasmaOrdered By: Maxim Hughes on 43-42-8992KK1 [Moles/Vol]29.5 mmol/L21.0-31.0[facility] HospitalChloride [Moles/volume] in Serum or PlasmaOrdered By: Maxim Hughes on 76-38-9543Fzjdzwbf [Moles/Vol]102 mmol/X31-525DcxglrljhOhio Valley Hospital Creatinine [Mass/volume] in Serum or PlasmaOrdered By: Maxim Hughes on 26-84-7663Ilicaolvyv [Mass/Vol]0.77 mg/dL0.60-1.20[facility] HospitalGlucose [Mass/volume] in Serum or PlasmaOrdered By: Maxim Hughes on 81-44-5304Wzntsog [Mass/Vol]96 mg/lY19-615GvekybpuhOhio Valley Hospital Comment on above:ADA recommended reference rangeRandom Glucose Reference Range is dependent on time and content of last meal. Glucose of more than 200 mg/dL in a nonstressed, ambulatory subject supports the diagnosisof Diabetes Mellitus.No Panel InformationOrdered By: Maxim Hughes on 08-26-4640Qswshdmmi GFR (CKD-EPI) > 60.0 mL/MinOhio Valley HospitalPharmacy Creatinine Clearance (ChemN/[facility] HospitalPhosphate [Mass/volume] in Serum or PlasmaOrdered By: Maxim Hughes on 10-47-0241Hectyzjvq [Mass/Vol]3.5 mg/dL 2.5-4.5FOhioHealth Doctors HospitalPotassium [Moles/volume] in Serum or PlasmaOrdered By: Maxim Hughes on 36-61-3192Zznpefdgc [Moles/Vol]4.2 mmol/L 3.5-5.1FMercy Health West Hospitalerum or plasma anion gap determination Ordered By: Maxim Hugehs on 54-01-2415Zwini gap [Moles/Vol]12.7 mmol/L6.0-15.0 [facility] Hospitalodium [Moles/volume] in Serum or PlasmaOrdered By: Maxim Hughes 02-55-5736Fuzbjg [Moles/Vol]140 mmol/Z491-268BovbgvtebOhio Valley HospitalUrea nitrogen [Mass/volume] in Serum or PlasmaOrdered By: Maxim Hughes on 22-20-0822Buxd nitrogen [Mass/Vol]16 mg/dL7-25[facility] HospitalVitamin D+Metabolites [Mass/volume] in Serum or Plasma Ordered By: Maxim Hughes on 22-94-7032Ovcgelv D+Metabolites [Mass/Vol]43.7 ng/uF47-789DblyvfkzdOhio Valley HospitalComment on above:VITAMIN D STATUS 25(OH)VITAMIN D RANGE (ng/mL) Deficient <20 Insufficient 20 to <39Sghevjnehp93 to 100Reference: Messi THOMPSON,Delvis SCHAFER, Brina HAYDEN et al. Evaluation,treatment, and prevention of vitamin D deficiency; an Endocrine Society clinical practice guideline. JCEM. 2010; 96(7):1911-30.Alanine aminotransferase [Enzymatic activity/volume] in Serum or PlasmaOrdered By: Zafar Reyes on 02-34-3928PTX [Catalytic activity/Vol]8 U/L7-52[facility] HospitalAlbumin [Mass/volume] in Serum or Plasma by Bromocresol green (BCG) dye binding methoOrdered By: Zafar Reyes on 20-56-7255Dkumaoa BCG dye [Mass/Vol]4.8 g/dL3.5-5.7FOhioHealth Doctors HospitalAlkaline phosphatase [Enzymatic activity/volume] in Serum or PlasmaOrdered By: Zafar Reyes on 25-06-2125FIX [Catalytic activity/Vol]44 U/R18-075UkdwfzdgrOhio Valley HospitalAspartate aminotransferase [Enzymatic activity/volume] in Serum or Plasma Ordered By: Zafar Reyes on 77-31-1097MGT [Catalytic activity/Vol]13 U/L13-39 [facility] HospitalBasophils Auto (Bld) [#/Vol]Ordered By: Zafar Reyes on 76-08-1755Hgfquwhwx (Bld) [#/Vol]0.0 10*3/uL0.0-0.2FOhioHealth Doctors HospitalBasophils/100 WBC Auto (Bld)Ordered By: Zafar Reyes on 10-14-2023 Basophils/100 WBC (Bld)0.6 %.[facility] HospitalBilirubin.total [Mass/volume] in Serum or PlasmaOrdered By: Zafar Reyes on 57-47-9033Deddhrkzy [Mass/Vol]0.6 mg/dL0.3-1.0[facility] HospitalCalcium [Mass/volume] in Serum or PlasmaOrdered By: Zafar Reyes on 46-56-1040Ysuwlex [Mass/Vol]9.5 mg/dL8.6-10.3FOhioHealth Doctors HospitalCarbon dioxide, total [Moles/volume] in Serum or PlasmaOrdered By: Zafar Reyes on 72-40-1810JK5 [Moles/Vol]29.2 mmol/L21.0-31.0[facility] HospitalChloride [Moles/volume] in Serum or PlasmaOrdered By: Zafar Reyes on 78-09-3607Fxgpnyms [Moles/Vol]105 mmol/N62-126SapxbqrrlOhio Valley HospitalCholesterol [Mass/volume] in Serum or PlasmaOrdered By: Zafar Reyes on 10-14-2023 Cholesterol [Mass/Vol]267 mg/dW653-558GoqnxgxriOhio Valley HospitalComment on above:Chol less than 200 mg/dl low riskChol 201-239 mg/dl borderline riskChol 240 mg/dl and greater high riskCholesterol in LDL Calc [Mass/Vol]Ordered By: Zafar Reyes on 54-70-2569Kxbojxkapcc in LDL [Mass/Vol]146 mg/dL0-100[facility] HospitalComment on above:LDL ATP III CLASSIFICATIONLDL less than 100 mg/dL OptimalLDL 100-129 mg/dL Near or above qsedlslXZB564-956 mg/dL Borderline highLDL 160-189 mg/dL HighLDL greater than 189 mg/dL Very high Cholesterol in VLDL Calc [Mass/Vol]Ordered By: Zafar Reyes on 10-14-2023 Cholesterol in VLDL [Mass/Vol]13 mg/dLOhio Valley Hospital Creatinine [Mass/volume] in Serum or PlasmaOrdered By: Zafar Reyes on 89-49-5388Sreuifgeuw [Mass/Vol]0.82 mg/dL0.60-1.20[facility] HospitalEosinophils Auto (Bld) [#/Vol]Ordered By: Zafar Reyes on 10-14-2023 Eosinophils (Bld) [#/Vol]0.3 10*3/uL0.0-0.45[facility] Eosinophils/100 WBC Auto (Bld)Ordered By: Zafar Reyes on 10-14-2023 Eosinophils/100 WBC (Bld)5.1 %.[facility] HospitalErythrocyte distribution width Auto (RBC) [Ratio]Ordered By: Zafar Reyes on 10-14-2023 Erythrocyte distribution width (RBC) [Ratio]13.8 %11.9-15.3FOhioHealth Doctors HospitalFolate [Mass/volume] in Serum or PlasmaOrdered By: Zafar Reyes on 29-99-2370Vuwyqa [Mass/Vol]11.7 ng/mL>5.9[facility] Comment on above:Folate reference range: >5.9 ng/mlThe WHO technical consultation on folate and vitamin t50dboaqqpeodos has determined that folate concentrations lessthan 4 ng/ml are considered deficient.Globulin Calc (S) [Mass/Vol]Ordered By: Zafar Reyes on 36-28-5596Jtgytest (S) [Mass/Vol]2.3 g/dL [facility] HospitalGlucose [Mass/volume] in Serum or PlasmaOrdered By: Zafar Reyes on 66-88-2735Ihmbfci [Mass/Vol]115 mg/cU86-953BouosugmoOhio Valley HospitalComment on above:ADA recommended reference rangeRandom Glucose Reference Range is dependent on time and content of last meal. Glucose of more than 200 mg/dL in a nonstressed, ambulatory subject supports the diagnosisof Diabetes Mellitus.Glucose mean value [Mass/volume] in Blood Estimated from glycated hemoglobinOrdered By: Zafar Reyes on 86-29-7254Rathspn glucose Estimated from glycated hemoglobin (Bld) [Mass/Vol]114 mg/dLOhio Valley HospitalHematocrit Auto (Bld) [Volume fraction]Ordered By: Zafar Reyes on 87-02-5066Nnlgvlxsqd (Bld) [Volume fraction]37.5 %34.0-46.4FOhioHealth Doctors HospitalHemoglobin A1c percentageOrdered By: Zafar Reyes on 82-73-6836DjE4f (Bld) [Mass fraction]5.6 %4.3-5.6FOhioHealth Doctors HospitalComment on above:Increased risk for diabetes: 5.7 - 6.4diabetes: >6.4glycemic control for adults with diabetes: <7.0Hemoglobin [Mass/volume] in BloodOrdered By: Zafar Reyes on 61-81-9695Fejtszawds (Bld) [Mass/Vol]12.4 g/dL11.8-15.4FOhioHealth Doctors HospitalLeukocytes [#/volume] corrected for nucleated erythrocytes in Blood by Automated counOrdered By: Zafar Reyes on 60-88-3098XFO corrected for nucl RBC Auto (Bld) [#/Vol]6.8 10*3/uL3.8-11.6 [facility] HospitalLymphocytes Auto (Bld) [#/Vol]Ordered By: Zafar Reyes on 84-35-2640Jkycsbqbpkl (Bld) [#/Vol]2.1 10*3/uL1.00-4.8[facility] HospitalLymphocytes/100 WBC Auto (Bld)Ordered By: Zafar Reyes on 05-39-3691Iqeexfvnslf/100 WBC (Bld)30.7 %.[facility] HospitalH Auto (RBC) [Entitic mass]Ordered By: Zafar Reyes on 84-06-4647TYT (RBC) [Entitic mass]31.6 pg24.7-34.3FMiddletown HospitalHC Auto (RBC) [Mass/Vol]Ordered By: Zafar Reyes on 47-47-0586AXMV (RBC) [Mass/Vol]33.1 g/dL 32.0-35.0[facility] HospitalMCV Auto (RBC) [Entitic vol]Ordered By: Zafar Reyes on 89-17-6679XFG (RBC) [Entitic vol]95.3 zZ62-851AiatcmkekOhio Valley HospitalMonocytes Auto (Bld) [#/Vol]Ordered By: Zafar Reyes on 13-36-8843Xmgyupwhf (Bld) [#/Vol]0.6 10*3/uL0.0-0.8[facility] HospitalMonocytes/100 WBC Auto (Bld)Ordered By: Zafar Reyes on 10-14-2023 Monocytes/100 WBC (Bld)8.5 %.[facility] HospitalNeutrophils Auto (Bld) [#/Vol]Ordered By: Zafar Reyes on 43-46-3476Gryubyotkoi (Bld) [#/Vol]3.7 10*3/uL1.8-7.7FOhioHealth Doctors HospitalNeutrophils/100 WBC Auto (Bld) Ordered By: Zafar Reyes on 70-07-4552Rflnlzemems/100 WBC (Bld)55.1 %.[facility] HospitalNo Panel InformationOrdered By: Zafar Reyes on 82-73-2361Yhuzmxlvz GFR (CKD-EPI)> 60.0 mL/MinOhio Valley Hospital Pharmacy Creatinine Clearance (ChemN/AFOhioHealth Doctors HospitalNucleated erythrocytes [Presence] in Blood by Automated countOrdered By: Zafar Reyes on 07-47-1313Mxhmkuwgp RBC Auto Ql (Bld)0.1 /100{WBC}0-0.5FOhioHealth Doctors HospitalPlatelet mean volume Auto (Bld) [Entitic vol]Ordered By: Zafar Reyes on 17-06-5676Mcglmgiy mean volume (Bld) [Entitic vol]8.0 fL6.3-10.7 [facility] HospitalPlatelets Auto (Bld) [#/Vol]Ordered By: Zafar Reyes on 04-68-1883Vzhzqyztg (Bld) [#/Vol]280 10*3/aU239-748VewinypraOhio Valley HospitalPotassium [Moles/volume] in Serum or PlasmaOrdered By: Zafar Reyes on 92-89-3673Ahfxdmggl [Moles/Vol]4.7 mmol/L3.5-5.1FOhioHealth Doctors HospitalProtein [Mass/volume] in Serum or PlasmaOrdered By: Zafar Reyes on 53-87-9329Calxdhh [Mass/Vol]7.1 g/dL6.4-8.9[facility] RBC Auto (Bld) [#/Vol]Ordered By: Zafar Reyes on 57-89-8859FCU (Bld) [#/Vol] 3.93 10*6/uL3.60-5.00[facility] Hospitalerum or plasma albumin/globulin mass ratioOrdered By: Zafar Reyes on 10-14-2023 Albumin/Globulin [Mass ratio]2.1 {ratio}[facility] Hospitalerum or plasma anion gap determinationOrdered By: Zafar Reyes on 91-31-5461Jjvfc gap [Moles/Vol]11.5 mmol/L6.0-15.0[facility] Hospitalerum or plasma high density lipoprotein (HDL) cholesterol measurementOrdered By: Zafar Reyes on 67-12-9400Dgzwtfsmuwe in HDL [Mass/Vol]108 mg/vC73-57QcytcvkzxOhio Valley HospitalComment on above:HDL CHOL ATP-III CLASSIFICATION Cardiovascular RiskHDL > or equal to 60 mg/dL LOWHDL < 40 mg/dL HIGHSerum or plasma total cholesterol/high density lipoprotein (HDL) cholesterol mass ratOrdered By: Zafar Reyes on 86-84-1522Vpnjwqirwdf.total/Cholesterol in HDL [Mass ratio]2.5 {ratio}<5.0[facility] Hospitalodium [Moles/volume] in Serum or PlasmaOrdered By: Zafar Reyes on 93-61-3949Ymunub [Moles/Vol]141 mmol/X405-534 [facility] HospitalTriglyceride [Mass/volume] in Serum or Plasma Ordered By: Zafar Reyes on 00-49-6831Afatdhvzpulj [Mass/Vol]65 mg/dL0-149 [facility] HospitalComment on above:TRIG ATP III CLASSIFICATIONTRIG less than 150 mg/dL NormalTRIG 150-199 mg/dL Borderline highTRIG 200-500 mg/dL High TRIG greater than 500 mg/dL Very highStandard traceable to the Center for Disease Conrtrol and Prevention (CDC) test method. Urea nitrogen [Mass/volume] in Serum or PlasmaOrdered By: Zafar Reyes on 55-59-7620Ofin nitrogen [Mass/Vol]20 mg/dL7-25[facility] Vitamin B12 ser/plasOrdered By: Zafar Reyes on 92-02-6252Uaqfrmltl (Vitamin B12) [Mass/Vol]930 pg/mC276-409TqnfkvhlcOhio Valley HospitalVitamin D+Metabolites [Mass/volume] in Serum or PlasmaOrdered By: Zafar Reyes on 49-77-9189Fvntdyr D+Metabolites [Mass/Vol]29.7 ng/tK57-085EshmmpnzdOhio Valley HospitalComment on above:VITAMIN D STATUS 25(OH)VITAMIN D RANGE (ng/mL) Deficient <20 Insufficient 20 to <96Smakbxzute09 to 100Reference: Messi MF,Delvis NC, Brina HAYDEN, et al. Evaluation,treatment, and prevention of vitamin D deficiency; an Endocrine Society clinical practice guideline. JCEM. 2010; 96(7):1911-30.WBC Auto (Bld) [#/Vol]Ordered By: Zafar Reyes on 47-08-8190HKW (Bld) [#/Vol]6.8 10*3/uL3.8-11.6FOhioHealth Doctors Hospital Albumin [Mass/volume] in Serum or Plasma by Bromocresol green (BCG) dye binding methoOrdered By: Maxim Hughes on 29-33-1118Zluqlwz BCG dye [Mass/Vol]4.7 g/dL 3.5-5.7FOhioHealth Doctors HospitalCalcium [Mass/volume] in Serum or Plasma Ordered By: Maxim Hughes on 08-82-3814Cxnpvqq [Mass/Vol]9.5 mg/dL8.6-10.3 [facility] HospitalCarbon dioxide, total [Moles/volume] in Serum or PlasmaOrdered By: Maxim Hughes on 46-87-8333DF8 [Moles/Vol]27.5 mmol/L 21.0-31.0[facility] HospitalChloride [Moles/volume] in Serum or PlasmaOrdered By: Maxim Hughes 94-56-6131Dsziceul [Moles/Vol]103 mmol/L 98-107[facility] HospitalCreatinine [Mass/volume] in Serum or PlasmaOrdered By: Maxim Hughes 35-16-9642Chzilcoord [Mass/Vol]0.78 mg/dL 0.60-1.20[facility] HospitalGlucose [Mass/volume] in Serum or PlasmaOrdered By: Maxim Hughes 00-16-8819Dhkkoiw [Mass/Vol]105 mg/wE19-801 [facility] HospitalComment on above:ADA recommended reference rangeRandom Glucose Reference Range is dependent on time and content of last meal. Glucose of more than 200 mg/dL in a nonstressed, ambulatory subject supports the diagnosisof Diabetes Mellitus.No Panel InformationOrdered By: Maxim Hughes on 88-98-1454Fuujkfzoq GFR (CKD-EPI)> 60.0 mL/MinOhio Valley HospitalPharmacy Creatinine Clearance (ChemN/[facility] HospitalPhosphate [Mass/volume] in Serum or PlasmaOrdered By: Maxim Hughes 71-28-1127Ujpktvsvz [Mass/Vol]3.4 mg/dL3.7-7.2FOhioHealth Doctors Hospital Potassium [Moles/volume] in Serum or PlasmaOrdered By: Maxim Hughes on 61-48-9831Awwyktegb [Moles/Vol]4.9 mmol/L3.5-5.1FMercy Health West Hospitalerum or plasma anion gap determinationOrdered By: Maxim Hughes on 36-79-7314Fnfwu gap [Moles/Vol]14.4 mmol/L6.0-15.0[facility] Hospitalodium [Moles/volume] in Serum or PlasmaOrdered By: Maxim Hughes on 35-98-4627Qvvqfx [Moles/Vol]140 mmol/D705-589SwnmxiuvuOhio Valley Hospital Urea nitrogen [Mass/volume] in Serum or PlasmaOrdered By: Maxim Hughes on 56-58-7533Imos nitrogen [Mass/Vol]16 mg/dL7-25[facility] Vitamin D+Metabolites [Mass/volume] in Serum or PlasmaOrdered By: Maxim Hughes on 61-04-6814Aqnayxu D+Metabolites [Mass/Vol]30.3 ng/dK63-942OpfzcczlrOhio Valley HospitalComment on above:VITAMIN D STATUS 25(OH)VITAMIN D RANGE (ng/mL) Deficient <20 Insufficient 20 to <57Gmowdhuccc15 to 100Reference: Messi THOMPSON,Delvis SCHAFER, Brina HAYDEN, et al. Evaluation,treatment, and prevention of vitamin D deficiency; an Endocrine Society clinical practice guideline. JCEM. 2010; 96(7):1911-30.Alanine aminotransferase [Enzymatic activity/volume] in Serum or PlasmaOrdered By: Zafar Reyes on 21-81-4663KWJ [Catalytic activity/Vol]7 U/L7-52[facility] HospitalAlbumin [Mass/volume] in Serum or Plasma by Bromocresol green (BCG) dye binding methoOrdered By: Zafar Reyes on 11-49-0373Oetfefi BCG dye [Mass/Vol]4.5 g/dL3.5-5.7FOhioHealth Doctors HospitalAlkaline phosphatase [Enzymatic activity/volume] in Serum or PlasmaOrdered By: Zafar Reyes on 32-72-7625IZY [Catalytic activity/Vol]33 U/L 34-104Ohio [facility] HospitalAspartate aminotransferase [Enzymatic activity/volume] in Serum or PlasmaOrdered By: Zafar Reyes on 36-31-2686DYJ [Catalytic activity/Vol]12 U/Q10-25YiqwtzrpjOhio Valley HospitalAutomated erythrocytes count in urine sediment (number/area)Ordered By: Zafar Reyes on 64-62-9337GQH Auto (Urine sed) [#/Area]0-1 [HPF]0-4FOhioHealth Doctors HospitalAutomated leukocytes count in urine sediment (number/area)Ordered By: Zafar Reyes on 45-71-5848QWJ Auto (Urine sed) [#/Area]None seen [HPF]0-4 [facility] HospitalBasophils Auto (Bld) [#/Vol]Ordered By: Zafar Reyes on 41-09-3661Qkiomzukn (Bld) [#/Vol]0.0 10*3/uL0.0-0.2FOhioHealth Doctors HospitalBasophils/100 WBC Auto (Bld)Ordered By: Zafar Reyes on 04-13-2023 Basophils/100 WBC (Bld)0.7 %.[facility] HospitalBilirubin Test strip Ql (U)Ordered By: Zafar Reyes on 99-54-4402Zlnttldre Ql (U)Negative NegativeOhio Valley HospitalBilirubin.total [Mass/volume] in Serum or PlasmaOrdered By: Zafar Reyes on 19-96-7785Ozayunfux [Mass/Vol]0.6 mg/dL 0.3-1.0[facility] HospitalCalcium [Mass/volume] in Serum or Plasma Ordered By: Zafar Reyes on 48-56-0840Xaujhlc [Mass/Vol]9.3 mg/dL8.6-10.3 [facility] HospitalCarbon dioxide, total [Moles/volume] in Serum or PlasmaOrdered By: Zafar Reyes on 90-10-9367TT7 [Moles/Vol]28.8 mmol/L 21.0-31.0[facility] HospitalChloride [Moles/volume] in Serum or PlasmaOrdered By: Zafar Reyes on 44-14-7152Nszdhuyh [Moles/Vol]103 mmol/L98-107 [facility] HospitalCholesterol [Mass/volume] in Serum or Plasma Ordered By: Zafar Reyes on 78-50-3547Ptnjwbactka [Mass/Vol]242 mg/kX808-640 [facility] HospitalComment on above:Chol less than 200 mg/dl low riskChol 201-239 mg/dl borderline riskChol 240 mg/dl and greater high risk Cholesterol in LDL Calc [Mass/Vol]Ordered By: Zafar Reyes on 04-13-2023 Cholesterol in LDL [Mass/Vol]120 mg/dL0-100[facility] Comment on above:LDL ATP III CLASSIFICATIONLDL less than 100 mg/dL OptimalLDL 100-129 mg/dL Near or above mrtkeafFHA646-834 mg/dL Borderline highLDL 160-189 mg/dL HighLDL greater than 189 mg/dL Very highCholesterol in VLDL Calc [Mass/Vol]Ordered By: Zafar Reyes on 14-77-4393Rzevswmeych in VLDL [Mass/Vol]17 mg/dLOhio Valley HospitalColor Auto (U)Ordered By: Zafar Reyes on 18-95-0496Xplpo (U)YellowYellowOhio Valley HospitalCreatinine [Mass/volume] in Serum or PlasmaOrdered By: Zafar Reyes on [id number] [Mass/Vol]0.93 mg/dL0.60-1.20[facility] HospitalEosinophils Auto (Bld) [#/Vol]Ordered By: Zafar Reyes on 76-12-7205Puqucgamcjo (Bld) [#/Vol]0.2 10*3/uL0.0-0.45[facility] HospitalEosinophils/100 WBC Auto (Bld) Ordered By: Zafar Reyes on 49-82-1658Mpetmaufkfu/100 WBC (Bld)3.4 %.[facility] HospitalErythrocyte distribution width Auto (RBC) [Ratio]Ordered By: Zafar Reyes on 97-27-5848Upiwsxrjaox distribution width (RBC) [Ratio]13.7 % 11.9-15.3FOhioHealth Doctors HospitalFolate [Mass/volume] in Serum or PlasmaOrdered By: Zafar Reyes on 19-36-0556Ojfjbo [Mass/Vol]8.9 ng/mL>5.9 [facility] HospitalComment on above:Folate reference range: >5.9 ng/mlThe WHO technical consultation on folate and vitamin [id number] has determined that folate concentrations lessthan 4 ng/ml are considered deficient. Globulin Calc (S) [Mass/Vol]Ordered By: Zafar Reyes on 41-76-4344Tfeoeeed (S) [Mass/Vol]2.1 g/dLOhio Valley HospitalGlucose [Mass/volume] in Serum or PlasmaOrdered By: Zafar Reyes on 38-69-8705Wtllvol [Mass/Vol]120 mg/dL 70-100[facility] HospitalComment on above:ADA recommended reference rangeRandom Glucose Reference Range is dependent on time and content of last meal. Glucose of more than 200 mg/dL in a nonstressed, ambulatory subject supports the diagnosisof Diabetes Mellitus.Glucose mean value [Mass/volume] in Blood Estimated from glycated hemoglobinOrdered By: Zafar Reyes on 53-32-0663Redxjir glucose Estimated from glycated hemoglobin (Bld) [Mass/Vol]117 mg/dLOhio Valley HospitalHematocrit Auto (Bld) [Volume fraction]Ordered By: Zafar Reyes on 31-52-4958Ctetngvbtv (Bld) [Volume fraction]37.2 %34.0-46.4FOhioHealth Doctors HospitalHemoglobin A1c percentageOrdered By: Zafar Reyes on 98-21-5340EpE4a (Bld) [Mass fraction]5.7 % 4.3-5.6FOhioHealth Doctors HospitalComment on above:Increased risk for diabetes: 5.7 - 6.4diabetes: >6.4glycemic control for adults with diabetes: &l t;7.0Hemoglobin [Mass/volume] in BloodOrdered By: Zafar Reyes on 04-13-2023 Hemoglobin (Bld) [Mass/Vol]12.1 g/dL11.8-15.4FOhioHealth Doctors Hospital Ketones Auto test strip (U) [Mass/Vol]Ordered By: Zafar Reyes on 04-13-2023 Ketones (U) [Mass/Vol]NegativeNegativeOhio Valley Hospital Laboratory - UrinalysisOrdered By: Zafar Reyes on 59-98-7959Ansjrpe casts LM Ql (Urine sed)None seen [LPF]0-8[facility] HospitalLeukocytes [#/volume] corrected for nucleated erythrocytes in Blood by Automated coun Ordered By: Zafar Reyes on 05-37-6598XKU corrected for nucl RBC Auto (Bld) [#/Vol]6.3 10*3/uL3.8-11.6FOhioHealth Doctors HospitalLymphocytes Auto (Bld) [#/Vol]Ordered By: Zafar Reyes on 25-65-7180Lusruemqlpp (Bld) [#/Vol]2.1 10*3/uL1.00-4.8[facility] Valley HospitalLymphocytes/100 WBC Auto (Bld) Ordered By: Zafar Reyes on 61-62-1356Hvybfsqdxmp/100 WBC (Bld)34.1 %.[facility] Auto (RBC) [Entitic mass]Ordered By: Zafar Reyes on 22-44-3416PRY (RBC) [Entitic mass]31.5 pg24.7-34.3FOhioHealth Doctors HospitalMCHC Auto (RBC) [Mass/Vol]Ordered By: Zafar Reyes on 62-87-2110BERC (RBC) [Mass/Vol]32.7 g/dL32.0-35.0Ohio [facility] HospitalMCV Auto (RBC) [Entitic vol]Ordered By: Zafar Reyes on 30-32-5811SEU (RBC) [Entitic vol]96.5 wT64-315QoqmfvljeOhio Valley HospitalMonocytes Auto (Bld) [#/Vol]Ordered By: Zafar Reyes on 95-91-4258Igaddabqc (Bld) [#/Vol]0.6 10*3/uL0.0-0.8[facility] HospitalMonocytes/100 WBC Auto (Bld)Ordered By: Zafar Reyes on 15-11-8143Zuwpjatiu/100 WBC (Bld)9.4 %.[facility] Neutrophils Auto (Bld) [#/Vol]Ordered By: Zafar Reyes on 82-67-3204Zfilmcbjnar (Bld) [#/Vol]3.3 10*3/uL1.8-7.7FOhioHealth Doctors HospitalNeutrophils/100 WBC Auto (Bld)Ordered By: Zafar Reyes on 98-15-3415Fqwqrsufojm/100 WBC (Bld) 52.4 %.[facility] HospitalNitrite Test strip Ql (U)Ordered By: Zafar Reyes on 89-59-9295Bhsuoyc Ql (U)NegativeNegativeOhio Valley HospitalNo Panel InformationOrdered By: Zafar Reyes on 04-13-2023 Estimated GFR (CKD-EPI)> 60.0 mL/MinOhio Valley HospitalPharmacy Creatinine Clearance (ChemN/AFOhioHealth Doctors HospitalNucleated erythrocytes [Presence] in Blood by Automated countOrdered By: Zafar Reyes on 92-76-7510Bojfyodfg RBC Auto Ql (Bld)0.1 /100{WBC}0-0.5FOhioHealth Doctors HospitalPlatelet mean volume Auto (Bld) [Entitic vol]Ordered By: Zafar Reyes on 93-04-8175Gabqeecz mean volume (Bld) [Entitic vol]8.4 fL6.3-10.7 [facility] HospitalPlatelets Auto (Bld) [#/Vol]Ordered By: Zafar Reyes on 33-63-3041Ozedrprdj (Bld) [#/Vol]252 10*3/iQ894-943WwlrdoighOhio Valley HospitalPotassium [Moles/volume] in Serum or PlasmaOrdered By: Zafar Reyes on 20-84-9017Luwkfpszq [Moles/Vol]4.1 mmol/L3.5-5.1FOhioHealth Doctors HospitalProtein Auto test strip (U) [Mass/Vol]Ordered By: Zafar Reyes on 52-59-1790Irwzxyb (U) [Mass/Vol]NegativeNegativeOhio Valley HospitalProtein [Mass/volume] in Serum or PlasmaOrdered By: Zafar Reyes on 38-19-0034Awvjbfx [Mass/Vol]6.6 g/dL6.4-8.9[facility] HospitalRBC Auto (Bld) [#/Vol]Ordered By: Zafar Reyes on 52-48-4552AGD (Bld) [#/Vol]3.85 10*6/uL3.60-5.00[facility] Hospitalerum or plasma albumin/globulin mass ratioOrdered By: Zafar Reyes on 04-13-2023 Albumin/Globulin [Mass ratio]2.1 {ratio}[facility] Hospitalerum or plasma anion gap determinationOrdered By: Zafar Reyes on 34-19-4914Ajksr gap [Moles/Vol]13.3 mmol/L6.0-15.0[facility] Hospitalerum or plasma high density lipoprotein (HDL) cholesterol measurementOrdered By: Zafar Reyes on 34-31-0568Zaunqcktqpg in HDL [Mass/Vol]105 mg/jP25-36QnjimzshyOhio Valley HospitalComment on above:HDL CHOL ATP-III CLASSIFICATION Cardiovascular RiskHDL > or equal to 60 mg/dL LOWHDL < 40 mg/dL HIGHSerum or plasma total cholesterol/high density lipoprotein (HDL) cholesterol mass ratOrdered By: Zafar Reyes on 43-19-1490Pfsewngxtmf.total/Cholesterol in HDL [Mass ratio]2.3 {ratio}<5.0[facility] Hospitalodium [Moles/volume] in Serum or PlasmaOrdered By: Zafar Reyes on 10-20-7476Pxekjt [Moles/Vol]141 mmol/Q119-888 [facility] Hospitalpecific gravity Auto test strip (U) [Rel density]Ordered By: Zafar Reyes on 87-03-5033Mfegqfss gravity (U) [Rel density] 1.0111.001-1.030[facility] Hospitalquamous epithelial cells detection in urine sediment by light microscopyOrdered By: Zafar Reyes on 70-40-0864Xgugkbbufx cells.squamous LM Ql (Urine sed)0-1 [HPF]0-2FOhioHealth Doctors HospitalThyrotropin [Units/volume] in Serum or PlasmaOrdered By: Zafar Reyes on 08-78-8868YKQ Qn1.67 m[IU]/L0.45-5.33[facility] HospitalTriglyceride [Mass/volume] in Serum or PlasmaOrdered By: Zafar Reyes on 17-18-0029Ocrnhmfpzdzv [Mass/Vol]87 mg/dL0-149[facility] Comment on above:TRIG ATP III CLASSIFICATIONTRIG less than 150 mg/dL NormalTRIG 150-199 mg/dL Borderline highTRIG 200-500 mg/dL High TRIG greater than 500 mg/dL Very highStandard traceable to the Center for Disease Conrtrol and Prevention (CDC) test method.Urea nitrogen [Mass/volume] in Serum or PlasmaOrdered By: Zafar Reyes on 79-54-0508Nrxs nitrogen [Mass/Vol]17 mg/dL7-25Ohio [facility] HospitalUrine bacteria detection by automated methodOrdered By: Zafar Reyes on 90-64-5850Uplfifet Auto Ql (U)None seenNone SeenOhio Valley HospitalUrine clarity by refractometry automatedOrdered By: Zafar Reyes on 81-67-8684Xbggcuy Refractometry automated (U)ClearClearFOhioHealth Doctors HospitalUrine culture routineOrdered By: Zafar Reyes on 04-13-2023 Bacteria identified Cx Nom (U)2 DaysOhio Valley HospitalUrine glucose measurement by automated test strip (mass/volume)Ordered By: Zafar Reyes on 08-80-7715Fkninsp Auto test strip (U) [Mass/Vol]Normal mg/dLToledo HospitalUrine hemoglobin detection by automated test stripOrdered By: Zafar Reyes on 36-98-6114Mdlxbetaah Auto test strip Ql (U) NegativeNegWright-Patterson Medical CenterUrine leukocyte esterase detection by automated test stripOrdered By: Zafar Reyes on 85-14-7773Wdejqknwc esterase Auto test strip Ql (U)NegativeNegWright-Patterson Medical CenterUrobilinogen Auto test strip (U) [Mass/Vol]Ordered By: Zafar Reyes on 40-73-9765Zoupuvnqmrqm (U) [Mass/Vol]Normal mg/dLNoPomerene HospitalVitamin B12 ser/plasOrdered By: Zafar Reyes on 04-13-2023 Cobalamin (Vitamin B12) [Mass/Vol]421 pg/lV695-854DkhihvgacOhio Valley HospitalVitamin D+Metabolites [Mass/volume] in Serum or PlasmaOrdered By: Zafar Reyes on 61-81-5506Ejgwklm D+Metabolites [Mass/Vol]31.7 ng/wN02-161RqzsokqstOhio Valley HospitalComment on above:VITAMIN D STATUS 25(OH)VITAMIN D RANGE (ng/mL) Deficient <20 Insufficient 20 to <08Wcpvbzmwfv23 to 100Reference: Messi THOMPSON,Delvis SCHAFER, Brina HAYDEN, et al. Evaluation,treatment, and prevention of vitamin D deficiency; an Endocrine Society clinical practice guideline. JCEM. 2010; 96(7):1911-30.WBC Auto (Bld) [#/Vol]Ordered By: Zafar Reyes on 95-94-3560CJB (Bld) [#/Vol]6.3 10*3/uL3.8-11.6FOhioHealth Doctors Hospital pH Auto test strip (U)Ordered By: Zafar Reyes on 56-31-6725xP (U)6.0 [pH] 5.0-9.0[facility] HospitalAlbumin [Mass/volume] in Serum or Plasma by Bromocresol green (BCG) dye binding methoOrdered By: Maxim Hughes on 06-43-4885Bexbkos BCG dye [Mass/Vol]5.1 g/dL3.5-5.7FOhioHealth Doctors HospitalCalcium [Mass/volume] in Serum or PlasmaOrdered By: Maxim Hughes 77-25-9025Mgmhhgl [Mass/Vol]10.4 mg/dL8.6-10.3FOhioHealth Doctors Hospital Carbon dioxide, total [Moles/volume] in Serum or PlasmaOrdered By: Maxim Hughes 27-08-3509DW2 [Moles/Vol]28.7 mmol/L21.0-31.0[facility] HospitalChloride [Moles/volume] in Serum or PlasmaOrdered By: Maxim Hughes 95-18-4258Weeeirvy [Moles/Vol]103 mmol/F63-356MeanktjefOhio Valley Hospital Creatinine [Mass/volume] in Serum or PlasmaOrdered By: Maxim Hughes 19-43-9670Goavtusudf [Mass/Vol]1.05 mg/dL0.60-1.20[facility] HospitalGlucose [Mass/volume] in Serum or PlasmaOrdered By: Maxim Hughes 15-21-8107Vjjxxwk [Mass/Vol]122 mg/bM96-817SvhpzskjiOhio Valley Hospital Comment on above:ADA recommended reference rangeRandom Glucose Reference Range is dependent on time and content of last meal. Glucose of more than 200 mg/dL in a nonstressed, ambulatory subject supports the diagnosisof Diabetes Mellitus. Laboratory - Chemistry and Chemistry - challengeOrdered By: Maxim Hughes on 59-53-5816ZLH/1.73 sq M.predicted MDRD (S/P/Bld) [Vol rate/Area]53.713 mL/min/{1.73_m2}[facility] HospitalNo Panel InformationOrdered By: Maxim Hughes 44-73-7869Ewlbbtba Creatinine Clearance (ChemN/[facility] HospitalPhosphate [Mass/volume] in Serum or PlasmaOrdered By: Maxim Hughes 35-53-5595Kpfhijtcz [Mass/Vol]3.3 mg/dL3.7-7.2FOhioHealth Doctors HospitalPotassium [Moles/volume] in Serum or PlasmaOrdered By: Maxim Hughes 71-36-1525Qlwsliele [Moles/Vol]4.8 mmol/L3.5-5.1FMercy Health West Hospitalerum or plasma anion gap determinationOrdered By: Maxim Hughes 83-87-4712Dbczo gap [Moles/Vol]14.1 mmol/L6.0-15.0[facility] Hospitalodium [Moles/volume] in Serum or PlasmaOrdered By: Maxim Hughes 53-62-9967Vzhfgg [Moles/Vol]141 mmol/L188-764OzzdnftxwOhio Valley HospitalUrea nitrogen [Mass/volume] in Serum or PlasmaOrdered By: Maxim Hughes 69-13-4882Pcnh nitrogen [Mass/Vol]20 mg/dL7-25[facility] Vitamin D+Metabolites [Mass/volume] in Serum or PlasmaOrdered By: Maxim Hughes 73-28-6145Tohflbl D+Metabolites [Mass/Vol]34.0 ng/nN53-298KiseyuphcOhio Valley HospitalComment on above:VITAMIN D STATUS 25(OH)VITAMIN D RANGE (ng/mL) Deficient <20 Insufficient 20 to <93Rylrtdmmxw94 to 100Reference: Messi MF,Delvis SCHAFER, Brina HAYDEN, et al. Evaluation,treatment, and prevention of vitamin D deficiency; an Endocrine Society clinical practice guideline. JCEM. 2010; 96(7):1911-30.Albumin [Mass/volume] in Serum or PlasmaOrdered By: Zafar Reyes on 30-45-2861Moiovno [Mass/Vol]4.4 g/dL3.2-5.5FOhioHealth Doctors HospitalBasophils Auto (Bld) [#/Vol]Ordered By: Zafar Reyes on 10-02-2022 Basophils (Bld) [#/Vol]0.0 10*3/uL0.0-0.2FOhioHealth Doctors Hospital Basophils/100 WBC Auto (Bld)Ordered By: Zafar Reyes on 84-60-3538Rvnsfzwgk/100 WBC (Bld)0.4 %.[facility] HospitalCholesterol [Mass/volume] in Serum or PlasmaOrdered By: Zafar Reyes on 04-04-4564Hkoapuytrcv [Mass/Vol]240 mg/pO277-332UpjyrxnubOhio Valley HospitalComment on above:Chol less than 200 mg/dl low riskChol 201-239 mg/dl borderline riskChol 240 mg/dl and greater high riskCholesterol in LDL Calc [Mass/Vol]Ordered By: Zafar Reyes on 10-02-2022 Cholesterol in LDL [Mass/Vol]113 mg/dL0-100[facility] Comment on above:LDL ATP III CLASSIFICATIONLDL less than 100 mg/dL OptimalLDL 100-129 mg/dL Near or above xdchccyCPG367-403 mg/dL Borderline highLDL 160-189 mg/dL HighLDL greater than 189 mg/dL Very highCholesterol in VLDL Calc [Mass/Vol]Ordered By: Zafar Reyes on 65-91-9458Cchwohuxncz in VLDL [Mass/Vol]14 mg/dLOhio Valley HospitalCreatinine and Glomerular filtration rate.predicted panel (S/P/Bld)Ordered By: Zafar Reyes on 36-72-3788Jcnlgftaxd [Mass/Vol]0.86 mg/dL0.44-1.03[facility] HospitalEosinophils Auto (Bld) [#/Vol]Ordered By: Zafar Reyes on 45-70-0210Ajlpblqgqwy (Bld) [#/Vol]0.2 10*3/uL0.0-0.45Ohio [facility] HospitalEosinophils/100 WBC Auto (Bld) Ordered By: Zafar Reyes on 07-31-2820Vwnmoqshybx/100 WBC (Bld)3.3 %.[facility] HospitalErythrocyte distribution width Auto (RBC) [Ratio]Ordered By: Zafar Reyes on 96-80-8714Keznrxyeqvk distribution width (RBC) [Ratio]13.8 % 11.9-15.3FOhioHealth Doctors HospitalEstimated glomerular filtration rate (GFR) non- AmericanOrdered By: Zafar Reyes on 81-53-1270FTQ/1.73 sq M.predicted among non-blacks MDRD (S/P/Bld) [Vol rate/Area]> 60 mL/MinOhio Valley HospitalFolate [Mass/volume] in Serum or PlasmaOrdered By: Zafar Reyes on 26-33-0306Unsfpa [Mass/Vol]8.4 ng/mL>5.9[facility] HospitalComment on above:Folate reference range: >5.9 ng/mlThe WHO technical consultation on folate and vitamin m27dyqoyqijxtcc has determined that folate concentrations lessthan 4 ng/ml are considered deficient.Globulin Calc (S) [Mass/Vol]Ordered By: Zafar Reyes on 93-13-1225Umlrzokh (S) [Mass/Vol]2.0 g/dL [facility] HospitalGlucose mean value [Mass/volume] in Blood Estimated from glycated hemoglobinOrdered By: Zafar Reyes on 56-03-6716Trdpshk glucose Estimated from glycated hemoglobin (Bld) [Mass/Vol]126 mg/dLOhio Valley HospitalHematocrit Auto (Bld) [Volume fraction]Ordered By: Zafar Reyes on 09-97-8047Wnhtskbdye (Bld) [Volume fraction]37.1 %34.0-46.4FOhioHealth Doctors HospitalHemoglobin A1c percentageOrdered By: Zafar Reyes on 39-34-2492DzU9v (Bld) [Mass fraction]6.0 %4.3-5.6FOhioHealth Doctors HospitalComment on above:Increased risk for diabetes: 5.7 - 6.4diabetes: >6.4glycemic control for adults with diabetes: <7.0Hemoglobin [Mass/volume] in BloodOrdered By: Zafar Reyes on 04-29-6632Zfwjwigfpt (Bld) [Mass/Vol]12.3 g/dL11.8-15.4FOhioHealth Doctors HospitalLaboratory - Chemistry and Chemistry - challengeOrdered By: Zafar Reyes on 68-98-5593Olhxercjl (Vitamin B12) [Mass/Vol]390 pg/sF768-803UslxahiklOhio Valley HospitalLeukocytes [#/volume] corrected for nucleated erythrocytes in Blood by Automated coun Ordered By: Zafar Reyes on 13-24-3919SNJ corrected for nucl RBC Auto (Bld) [#/Vol]6.9 10*3/uL3.8-11.6FOhioHealth Doctors HospitalLymphocytes Auto (Bld) [#/Vol]Ordered By: Zafar Reyes on 82-23-4348Diubpvvydjw (Bld) [#/Vol]2.4 10*3/uL1.00-4.8[facility] HospitalLymphocytes/100 WBC Auto (Bld) Ordered By: Zafar Reyes on 66-43-7995Hzthubqpdkc/100 WBC (Bld)34.6 %.[facility] Auto (RBC) [Entitic mass]Ordered By: Zafar Reyes on 54-88-8580IAV (RBC) [Entitic mass]31.6 pg24.7-34.3FOhioHealth Doctors HospitalMCHC Auto (RBC) [Mass/Vol]Ordered By: Zafar Reyes on 85-06-8157KFLC (RBC) [Mass/Vol]33.2 g/dL32.0-35.0[facility] HospitalMCV Auto (RBC) [Entitic vol]Ordered By: Zafar Reyes on 97-82-7732UIH (RBC) [Entitic vol]95.3 fL56-102GtmpwroqsOhio Valley HospitalMonocytes Auto (Bld) [#/Vol]Ordered By: Zafar Reyes on 66-03-9891Bxrozywew (Bld) [#/Vol]0.7 10*3/uL0.0-0.8[facility] HospitalMonocytes/100 WBC Auto (Bld)Ordered By: Zafar Reyes on 98-07-3319Fqtqxyfqe/100 WBC (Bld)9.5 %.[facility] Neutrophils Auto (Bld) [#/Vol]Ordered By: Zafar Reyes on 08-17-1611Lzbtflvnldb (Bld) [#/Vol]3.6 10*3/uL1.8-7.7FOhioHealth Doctors HospitalNeutrophils/100 WBC Auto (Bld)Ordered By: Zafar Reyes on 68-76-3139Bpefvhyupcc/100 WBC (Bld) 52.2 %.[facility] HospitalNo Panel InformationOrdered By: Zafar Reyes on 83-49-278284305829-Dtjqudc Vitamin D Total29.7 ng/nZ76-798FrjfkpjkvOhio Valley HospitalComment on above:VITAMIN D STATUS 25(OH)VITAMIN D RANGE (ng/mL) Deficient <20 Insufficient 20 to <84Kckvehmdqg95 to 100Reference: Messi MF,Delvis NC, Brina HAYDEN, et al. Evaluation,treatment, and prevention of vitamin D deficiency; an Endocrine Society clinical practice guideline. JCEM. 2010; 96(7):1911-30.Estimated GFR ()> 60 mL/MinOhio Valley HospitalComment on above:GFR estimated reference range: According to KDOQI guidelines, <60 ml/min/1.73m2 is sufficient todiagnose a patient with chronic kidney disease.Pharmacy Creatinine Clearance (ChemN/AFOhioHealth Doctors HospitalNucleated erythrocytes [Presence] in Blood by Automated count Ordered By: Zafar Reyes on 77-53-2649Hkvjjxmok RBC Auto Ql (Bld)0.1 /100{WBC} 0-0.5FOhioHealth Doctors HospitalPlatelet mean volume Auto (Bld) [Entitic vol]Ordered By: Zafar Reyes on 22-16-4530Gabdrqld mean volume (Bld) [Entitic vol]8.0 fL6.3-10.7FOhioHealth Doctors HospitalPlatelets Auto (Bld) [#/Vol] Ordered By: Zafar Reyes on 70-43-9253Hzzhxlbgt (Bld) [#/Vol]301 10*3/sB478-107 [facility] CenterProtein [Mass/volume] in Serum or PlasmaOrdered By: Zafar Reyes on 47-83-8694Yxviibr [Mass/Vol]6.4 g/dL6.1-7.9[facility] HospitalRBC Auto (Bld) [#/Vol]Ordered By: Zafar Reyes on 16-00-1182ESY (Bld) [#/Vol]3.89 10*6/uL3.60-5.00[facility] Hospitalerum or plasma alanine aminotransferase measurement without P-5'-P (enzymatic activiOrdered By: Zafar Reyes on 37-14-3960UWD No additional P-5'-P [Catalytic activity/Vol]10 U/C14-32IedprzdsoPike Community Hospitalerum or plasma albumin/globulin mass ratioOrdered By: Zafar Reyes on 10-02-2022 Albumin/Globulin [Mass ratio]2.2 {ratio}[facility] Hospitalerum or plasma alkaline phosphatase measurement (enzymatic activity/volume)Ordered By: Zafar Reyes on 13-75-3246HWR [Catalytic activity/Vol]45 U/H41-90YtreoumcrPike Community Hospitalerum or plasma anion gap determinationOrdered By: Zafar Reyes on 29-42-8244Hrsbh gap [Moles/Vol]11.0 mmol/L6.0-15.0[facility] Hospitalerum or plasma aspartate aminotransferase measurement (enzymatic activity/volume)Ordered By: Zafar Reyes on 17-95-4900TZR [Catalytic activity/Vol]15 U/E88-95LzwewpznbPike Community Hospitalerum or plasma calcium measurement (mass/volume)Ordered By: Zafar Reyes on 70-79-7956Wdwoiud [Mass/Vol]9.3 mg/dL8.2-10.2FMercy Health West Hospitalerum or plasma chloride measurement (moles/volume)Ordered By: Zafar Reyes on 10-02-2022 Chloride [Moles/Vol]104 mmol/H05-247YwgaetrkjPike Community Hospitalerum or plasma glucose measurement (mass/volume)Ordered By: Zafar Reyes on 10-02-2022 Glucose [Mass/Vol]114 mg/jB53-508MxhrrwssrOhio Valley HospitalComment on above:ADA recommended reference rangeRandom Glucose Reference Range is dependent on time and content of last meal. Glucose of more than 200 mg/dL in a nonstressed, ambulatory subject supports the diagnosisof Diabetes Mellitus.Serum or plasma high density lipoprotein (HDL) cholesterol measurementOrdered By: Zafar Reyes on 83-51-2334Fcsbmunnlhh in HDL [Mass/Vol]112 mg/nZ22-86GazwwxgzfOhio Valley HospitalComment on above:HDL CHOL ATP-III CLASSIFICATION Cardiovascular RiskHDL > or equal to 60 mg/dL LOWHDL < 40 mg/dL HIGHSerum or plasma potassium measurement (moles/volume)Ordered By: Zafar Reyes on 73-20-8708Hwtizofns [Moles/Vol]4.6 mmol/L3.5-5.1FMercy Health West Hospitalerum or plasma sodium measurement (moles/volume)Ordered By: Zafar Reyes on 22-51-2597Tnpyar [Moles/Vol]139 mmol/N144-461SihrqkkbiPike Community Hospitalerum or plasma total bilirubin measurement (mass/volume)Ordered By: Zafar Reyes on 65-57-3030Scfnroxqe [Mass/Vol]0.6 mg/dL0.3-1.2FMercy Health West Hospitalerum or plasma total carbon dioxide measurement (moles/volume) Ordered By: Zafar Reyes on 50-17-3549IB5 [Moles/Vol]28.6 mmol/L22.0-30.0 [facility] Hospitalerum or plasma total cholesterol/high density lipoprotein (HDL) cholesterol mass ratOrdered By: Zafar Reyes on 10-02-2022 Cholesterol.total/Cholesterol in HDL [Mass ratio]2.1 {ratio}<5.0[facility] Hospitalerum or plasma urea nitrogen measurement (mass/volume) Ordered By: Zafar Reyes on 87-51-8852Vhpa nitrogen [Mass/Vol]16 mg/dL9-23 [facility] HospitalTriglyceride [Mass/volume] in Serum or Plasma Ordered By: Zafar Reyes on 72-55-0223Cyebfejtcrae [Mass/Vol]73 mg/yE44-668 [facility] HospitalComment on above:TRIG ATP III CLASSIFICATIONTRIG less than 150 mg/dL NormalTRIG 150-199 mg/dL Borderline highTRIG 200-500 mg/dL High TRIG greater than 500 mg/dL Very highStandard traceable to the Center for Disease Conrtrol and Prevention (CDC) test method. WBC Auto (Bld) [#/Vol]Ordered By: Zafar Reyes on 76-03-6039QRB (Bld) [#/Vol]6.9 10*3/uL3.8-11.6FOhioHealth Doctors HospitalCOVID-19 SOFIAOrdered By: Vitaly Denson on 18-28-3379HJIS-CoV+SARS-CoV-2 (COVID-19) Ag IA.rapid Ql (Resp) NegativeNegWright-Patterson Medical CenterComment on above:This is a duplicate Sayra SARS Antigen (DENIZ) result to be used for statistical tracking purpose only.No Panel InformationOrdered By: Vitaly Denson on 96-52-9147SSSU Antigen (LFIA)[facility] HospitalAutomated erythrocytes count in urine sediment (number/area)Ordered By: Zafar Reyes on 20-73-8323QRW Auto (Urine sed) [#/Area]None seen [HPF]0-4FOhioHealth Doctors HospitalAutomated leukocytes count in urine sediment (number/area)Ordered By: Zafar Reyes on 73-47-7785HFA Auto (Urine sed) [#/Area]None seen [HPF]0-4FOhioHealth Doctors HospitalBilirubin Test strip Ql (U)Ordered By: Zafar Reyes on 03-31-2022 Bilirubin Ql (U)NegativeNegWright-Patterson Medical CenterColor Auto (U) Ordered By: Zafar Reyes on 32-88-5684Qgesn (U)YellowYellowOhio Valley HospitalCreatinine and Glomerular filtration rate.predicted panel (S/P/Bld)Ordered By: Zafar Reyes on 24-11-6193Nkgvqsvtzc [Mass/Vol]0.87 mg/dL 0.44-1.03[facility] HospitalEstimated glomerular filtration rate (GFR) non- AmericanOrdered By: Zafar Reyes on 19-70-6415CKK/1.73 sq M.predicted among non-blacks MDRD (S/P/Bld) [Vol rate/Area]> 60 mL/MinOhio Valley HospitalKetones Auto test strip (U) [Mass/Vol]Ordered By: Zafar Reyes on 73-80-6945Mgwlurn (U) [Mass/Vol]NegativeNegativeOhio Valley HospitalLaboratory - UrinalysisOrdered By: Zafar Reyes on 03-31-2022 Hyaline casts LM Ql (Urine sed)0-8 [LPF]0-8[facility] Nitrite Test strip Ql (U)Ordered By: Zafar Reyes on 41-41-1263Uxcrkdc Ql (U) NegativeNegativeOhio Valley HospitalNo Panel InformationOrdered By: Zafar Reyes on 05-25-6894Mldptaqpe GFR ()> 60 mL/MinOhio Valley HospitalComment on above:GFR estimated reference range: According to KDOQI guidelines, <60 ml/min/1.73m2 is sufficient todiagnose a patient with chronic kidney disease.Pharmacy Creatinine Clearance (ChemN/[facility] HospitalProtein Auto test strip (U) [Mass/Vol]Ordered By: Zafar Reyes on 42-75-3894Mviinjl (U) [Mass/Vol]NegativeNegativePike Community Hospitalerum or plasma calcium measurement (mass/volume)Ordered By: Zafar Reyes on 22-78-1593Vznyjws [Mass/Vol]9.2 mg/dL8.2-10.2FMercy Health West Hospitalerum or plasma chloride measurement (moles/volume)Ordered By: Zafar Reyes on 78-19-5197Vwwpfozi [Moles/Vol]99 mmol/G21-142PislospnyPike Community Hospitalerum or plasma glucose measurement (mass/volume)Ordered By: Zafar Reyes on 25-56-6131Eatlhto [Mass/Vol]126 mg/iD30-204YoyrmsyjmOhio Valley HospitalComment on above:ADA recommended reference range Random Glucose Reference Range is dependent on time and content of last meal. Glucose of more than 200 mg/dL in a nonstressed, ambulatory subject supports the diagnosis of Diabetes Mellitus.Serum or plasma potassium measurement (moles/volume)Ordered By: Zafar Reyes on 28-57-9298Nsolzpevs [Moles/Vol]4.6 mmol/L3.5-5.1FMercy Health West Hospitalerum or plasma sodium measurement (moles/volume)Ordered By: Zafar Reyes on 60-60-8168Wurkvj [Moles/Vol]135 mmol/Q457-559OvalvzysxPike Community Hospitalerum or plasma total carbon dioxide measurement (moles/volume)Ordered By: Zafar Reyes on 48-05-6362KR3 [Moles/Vol]27.2 mmol/L22.0-30.0[facility] Hospitalerum or plasma urea nitrogen measurement (mass/volume)Ordered By: Zafar Reyes on 03-31-2022 Urea nitrogen [Mass/Vol]14 mg/dL9-23[facility] Hospitalpecific gravity Auto test strip (U) [Rel density]Ordered By: Zafar Reyes on 03-31-2022 Specific gravity (U) [Rel density]1.0031.001-1.030[facility] Hospitalquamous epithelial cells detection in urine sediment by light microscopy Ordered By: Zafar Reyes on [id number] cells.squamous LM Ql (Urine sed)1-2 [HPF]0-2FOhioHealth Doctors HospitalUrine bacteria detection by automated methodOrdered By: Zafar Reyes on [id number] Auto Ql (U)None seenNone SeenOhio Valley HospitalUrine clarity by refractometry automatedOrdered By: Zafar Reyes on [id number] Refractometry automated (U)ClearClearFOhioHealth Doctors HospitalUrine glucose measurement by automated test strip (mass/volume)Ordered By: Zafar Reyes on 51-17-0714Lmhnknl Auto test strip (U) [Mass/Vol]Normal mg/dLWayne HealthCare Main CampusUrine hemoglobin detection by automated test stripOrdered By: Zafar Reyes on 55-04-0633Dimfelheyx Auto test strip Ql (U)NegativeNegWright-Patterson Medical CenterUrine leukocyte esterase detection by automated test stripOrdered By: Zafar Reyes on 89-70-7551Sughbsmsy esterase Auto test strip Ql (U)NegativeNegWright-Patterson Medical CenterUrobilinogen Auto test strip (U) [Mass/Vol]Ordered By: Zafar Reyes on 43-83-8260Ojzyqddzfdab (U) [Mass/Vol]Normal mg/dLNoPomerene HospitalpH Auto test strip (U)Ordered By: Zafar Reyes on 69-72-0760tZ (U)7.0 [pH]5.0-9.0[facility] HospitalFOLATE ([facility])on 20-81-0207Ahhuud8.4 ng/mLNormal>3.0The St. [facility] Medical CenterComment on above:Result Comment: A serum folate concentration of less than 3.1 ng/mL is considered to represent clinical deficiency.Performed By: #### FOLALC #### [facility] [address] [address] [address] Terrence KrausC AUTO DIFFon 10-62-4824NADM #0.0 103/ulNormal0.0-0.1The St. [facility]S Medical CenterComment on above:Performed By: #### CBC #### [facility] [address] [place] [address] Dr. Terrence RiosBasophils/100 WBC (Bld)0.5 %Normal0.2-2.0[facility] Comment on above:Performed By: #### CBC #### [facility] [address] [place] [address] Dr. Terrence Last #0.2 103/ulNormal0.0-0.7The [facility]S Medical CenterComment on above: Performed By: #### CBC #### [facility] [address] [place] [address] Dr. Terrence Riveroosinophils/100 WBC (Bld)3.5 %Normal0.9-7.0[facility] Comment on above:Performed By: #### CBC #### [facility] [address] [place] [address] Dr. Terrence Riverorythrocyte distribution width (RBC) [Ratio]12.8 %Tknayr29.0-15.[address] [facility] Medical CenterComment on above:Performed By: #### CBC #### [facility] [address] [place] [address] Dr. Terrence RiosHematocrit (Bld) [Volume fraction]36.8 %Beywzr03.0-48.0The [facility]S Medical CenterComment on above:Performed By: #### CBC #### [facility] [address] [place] [address] Dr. Terrence RiosHemoglobin (Bld) [Mass/Vol]11.7 g/dLCritically low12.0-16.0The [facility] CenterComment on above:Performed By: #### CBC #### [facility] [address] [place] [address] Dr. Terrence Mcqueen #0.01 10e3/ulNormal0.00-0.03The [facility]S Medical CenterComment on above:Performed By: #### CBC #### [facility] [address] [place] [address] Dr. Terrence Mcqueen %0.2 %Normal0.0-0.5The [facility]S Medical CenterComment on above: Performed By: #### CBC #### [facility] [address] [place] [address] Dr. Terrence Calzada #1.6 103/ulNormal1.2-3.8The [facility]S [facility] CenterComment on above:Performed By: #### CBC #### [facility] [address] [place] [address] Dr. Terrence Groveshocytes/100 WBC (Bld)27.7 %Jkthbz81.5-60.0The [facility]S Medical CenterComment on above:Performed By: #### CBC #### [facility] [address] [place] [address] Dr. Terrence HernándezUAL DIFF REQNONormalThe St. Mary'S Medical CenterComment on above: Performed By: #### CBC #### [facility] [address] [place] [address] Dr. Terrence Horn (RBC) [Entitic mass]31.0 fjGmiqji30.7-34.0The [facility]S Medical CenterComment on above:Performed By: #### CBC #### [facility] [address] [place] [address] Dr. Terrence Horn (RBC) [Mass/Vol]31.8 g/eJOlnjsl20.9-35.2The [facility] Medical CenterComment on above:Performed By: #### CBC #### [facility] [address] [place] [address] Dr. Terrence Horn (RBC) [Entitic vol]97.4 cRXwtqke55.0-99.0The [facility]S Medical CenterComment on above:Performed By: #### CBC #### [facility] [address] [place] [address] Dr. Terrence Gold #0.6 103/ulNormal0.3-0.8The [facility]S Medical CenterComment on above:Performed By: #### CBC #### [facility] [address] [place] [address] Dr. Terrence Simonsocytes/100 WBC (Bld)9.7 %Normal1.7-12.0The [facility] Comment on above:Performed By: #### CBC #### [facility] [address] [place] [address] Dr. Terrence Connor #3.4 103/ulNormal1.4-6.5The [facility]S Medical CenterComment on above:Performed By: #### CBC #### [facility] [address] [place] [address] Dr. Terrence Stephenutrophils/100 WBC (Bld)58.4 %Khhfhe09.0-75.0The [facility]S Medical CenterComment on above:Performed By: #### CBC #### [facility] [address] [place] [address] Dr. Terrence Chairez mean volume (Bld) [Entitic vol]9.1 fLCritically low 9.5-13.5The [facility]S Medical CenterComment on above:Performed By: #### CBC #### [facility] [address] [place] [address] Dr. Terrence SchultzT268 103/gkYdsfme910-173Gfr St. [facility]'S Medical CenterComment on above: Performed By: #### CBC #### [facility] [address] [place] [address] Dr. Terrence RiosRBC3.78 106/ulCritically low4.20-5.40The [facility]S Medical CenterComment on above:Performed By: #### CBC #### [facility] [address] [place] [address] Dr. Terrence RiosWBC5.8 103/ulNormal4.0-11.0The [facility] Townshipment on above: Performed By: #### CBC #### [facility] [address] [place] [address] Dr. Terrence RiosCULTURE URINEon 49-69-4044PCQIPYX URINECulture Observations: LIGHT GROWTH OF MIXED GENITAL ZAINAB. NO POTENTIAL PATHOGENS SEEN.NormalThe St. [facility]'S Medical CenterComment on above:Performed By: #### NTXCL #### [facility] [address] [place] [address] Clem KarenGLYCOHEMOGLOBIN A1Con 89-36-9879ISF RECOMMENDATIONSEE [facility] CenterCompromedica [facility] on above:Result Comment: ADA RECOMMENDED LIMIT 4.0 - 6.0 ADA THERAPEUTIC TARGET < 7.0 ACTION SUGGESTED > 7.0Performed By: #### A1C #### [facility] [address] [place] [address] Dr. Terrence RiosGlucose [Mass/Vol]117 mg/dLNoWayne HealthCare Main CampusComment on above:Performed By: #### A1C #### [facility] [address] [place] [address] Dr. Terrence RiosHbA1c (Bld) [Mass fraction]5.7 %Normal4.5-6.2The [facility] on above:Performed By: #### A1C #### [facility] [address] [place] [address] Dr. Terrence RiosLIPID PROFILEon 60-67-1164JWYK-HDL RATIO NORMSEE [facility] CenterCompromedica [facility] on above:Result Comment: 3.3 - 4.4 LOW RISK 4.4 - 7.1 AVERAGE RISK 7.1 - 11.0 MODERATE RISK >11.0 HIGH RISKPerformed By: #### NTXCL #### [facility] [address] [place] [address] Clem KarenCholesterol [Mass/Vol]241 mg/dLCritically high<=200The [facility] on above:Performed By: #### NTXCL #### [facility] [address] [place] [address] Clem KarenCholesterol in HDL [Mass/Vol]119 mg/dLCritically jcmy65-84PsmKettering Health PrebleComment on above:Performed By: #### NTXCL #### [facility] [address] [place] [address] Clem KarenCholesterol in LDL [Mass/Vol]110.4 mg/dLKettering Health [facility] Comment on above:Performed By: #### NTXCL #### [facility] [address] [place] [address] Clem KarenCholesterol.total/Cholesterol in HDL [Mass ratio]2.0 {ratio}Normal The [facility]. [facility]'S Medical CenterComment on above:Performed By: #### NTXCL #### [facility] [address] [place] [address] Clem KarenHDL NORMAL> or = 60 mg/dl - LOW CARDIOVASCULAR RISK <40 mg/dl - HIGH CARDIOVASCULAR RISKKettering Health DaytonComment on above:Performed By: #### NTXCL #### [facility] [address] [place] [address] Clem KarenLDL CALC NORMALSEE BELOWKettering Health DaytonComment on above: Result Comment: <100 mg/dl OPTIMAL 100 - 129 mg/dl NEAR OR ABOVE OPTIMAL 130 - 159 mg/dl BORDERLINE HIGH 160 - 189 mg/dl HIGH >190 mg/dl VERY HIGHPerformed By: #### NTXCL #### [facility] [address] [place] [address] Clem KarenTriglyceride [Mass/Vol]58 mg/dLNormal<=150[facility] Comment on above:Performed By: #### NTXCL #### [facility] [address] [place] [address] Clem KarenVLDL CALC11.6 mg/dLKettering Health DaytonComment on above: Performed By: #### NTXCL #### [facility] [address] [place] [address] Clem KarenPROF 14(COMP METB)on 98-62-4869Bjdmgod [Mass/Vol]4.2 g/dLNormal 3.4-5.0The [facility] Wing HospitalComment on above:Performed By: #### NTXCL #### [facility] [address] [id number] Clem KarenAlbumin/Globulin [Mass ratio]1.3 {ratio}NormalKettering Health [facility] Comment on above:Performed By: #### NTXCL #### [facility] [address] [id number] Clem KarenALP [Catalytic activity/Vol]46 U/RPlcvmb06-218HteKettering Health [facility] Comment on above:Performed By: #### NTXCL #### [facility] [address] [place] [address] Clem KarenALT [Catalytic activity/Vol]20 U/TJgadkw61-33FguKettering Health [facility] Comment on above:Performed By: #### NTXCL #### [facility] [address] [place] [address] Clem KarenAnion gap [Moles/Vol]15.0 mmol/LNormalThe St. Mary'S Medical CenterComment on above:Performed By: #### NTXCL #### [facility] [address] [place] [address] Clem KarenAST [Catalytic activity/Vol]14 U/LCritically zfl35-84JgdKettering Health PrebleComment on above:Performed By: #### NTXCL #### [facility] [address] [place] [address] Clem KarenBilirubin [Mass/Vol]0.4 mg/dLNormal0.2-1.0[facility] Comment on above:Performed By: #### NTXCL #### [facility] [address] [place] [address] Clem KarenCalcium [Mass/Vol]8.5 mg/dLNormal8.5-10.1[facility] Comment on above:Performed By: #### NTXCL #### [facility] [address] [place] [address] Clem KarenChloride [Moles/Vol]99 mmol/LHmqpcz66-301SvhKettering Health [facility] Comment on above:Performed By: #### NTXCL #### [facility] [address] [address] Clem KarenCO2 [Moles/Vol]26.2 mmol/RSletpl04.0-32.0The [facility] Comment on above:Performed By: #### NTXCL #### [facility] [address] [address] Clem KarenCreatinine [Mass/Vol]1.03 mg/dLCritically high0.55-1.02The [facility] Medical CenterComment on above:Performed By: #### NTXCL #### [facility] [address] [address] Clem KarenEGFR-AF JAMAICAN>60Normal>=60The [facility]. [facility]S Medical CenterComment on above: Performed By: #### NTXCL #### [facility] [address] [place] [address] Clem KarenEGFR-NON AF EUWEJBAA57 mL/min/1.65u7Jgczudqmes low>=60The [facility] Medical CenterComment on above:Performed By: #### NTXCL #### [facility] [address] [place] [address] Clem KarenGlobulin (S) [Mass/Vol]3.2 g/dLNormalThe St. [facility]'S Medical CenterComment on above:Performed By: #### NTXCL #### [facility] [address] [place] [address] Clem KarenGlucose [Mass/Vol]122 mg/dLCritically hgfk90-926Jzq St. [facility]S Medical CenterComment on above:Performed By: #### NTXCL #### [facility] [address] [address] Clem KarenPotassium [Moles/Vol]5.2 mmol/LCritically high3.5-5.1The [facility] Medical CenterComment on above:Performed By: #### NTXCL #### [facility] [address] [place] [address] Clem KarenProtein [Mass/Vol]7.4 g/dLNormal6.4-8.2The [facility] HospitalComment on above:Performed By: #### NTXCL #### [facility] [address] [place] [address] Clem KarenSodium [Moles/Vol]135 mmol/LCritically naw444-222Ldm [facility] HospitalComment on above:Performed By: #### NTXCL #### [facility] [address] [place] [address] Clem KarenUrea nitrogen [Mass/Vol]21.0 mg/dLCritically high7.0-18.0The [facility] HospitalComment on above:Performed By: #### NTXCL #### [facility] [address] [place] [address] Clem KarenUrea nitrogen/Creatinine [Mass ratio]20.4 mg/mgNormalThe St. Mary'S Medical CenterComment on above:Performed By: #### NTXCL #### [facility] [address] [place] [address] Clem KarenTSHon 05-54-0086FSL1.110 uIU/mLNormal0.358-3.740The St[facility] Medical CenterComment on above:Performed By: #### NTXCL #### [facility] [address] [place] [address] Clem KarenUA RANDOMon 35-66-3650Gctygjlof Ql (U)NegativeNormalNEGATIVEThe St. [facility]'S Medical CenterComment on above:Performed By: #### NTXCL #### [facility] [address] [place] [address] Clem KarenClarity (U)CLEARNormalCLEARThe [facility] HospitalComment on above: Performed By: #### NTXCL #### [facility] [address] [place] [address] Clem KarenColor (U)LT. YELLOWNormalYELLOWKettering Health PrebleComment on above:Performed By: #### NTXCL #### [facility] [address] [place] [address] Clem KarenGlucose Ql (U)NegativeNormalNEGATIVECleveland Clinic [facility]ucl[facility] Hospital HospitalComment on above:Performed By: #### NTXCL #### [facility] [address] [place] [address] Clem KarenHemoglobin Ql (U)TRACE-LYSEDAbnormalNEGATIVEThe [facility] on above:Performed By: #### NTXCL #### [facility] [address] [place] [address] Clem KarenKetones Ql (U)NegativeNormalNEGATIVEThe [facility] HospitalComment on above:Performed By: #### NTXCL #### [facility] [address] [place] [address] Clem KarenLEUKOCYTESNegativeNormalNEGATIVEKettering Health PrebleComment on above:Performed By: #### NTXCL #### [facility] [address] [place] [address] Clem KarenNitrite Ql (U)NegativeNormalNEGATIVECleveland Clinic [facility]ucl[facility] Hospital HospitalComment on above:Performed By: #### NTXCL #### [facility] [address] [place] [address] Clem KarenpH (U)6.5 [pH]Normal5-9The [facility] Medical CenterComment on above: Performed By: #### NTXCL #### [facility] [address] [place] [address] Clem KarenSPEC GRAVITY1.050Ezsbal8.005-<=1.025The St. [facility]S Medical CenterComment on above:Performed By: #### NTXCL #### [facility] [address] [place] [address] Clem KarenUA PROTEINNegativeNormalNEGATIVE/ TRACEThe St. [facility]S Medical CenterComment on above:Performed By: #### NTXCL #### [facility] [address] [place] [address] Clem KarenUrobilinogen Qn (U)0.2 {Alba'U}/dLNormal0.2 - 1.0The [facility] Medical CenterComment on above:Performed By: #### NTXCL #### [facility] [address] [place] [address] Clem KarenVITAMIN B12on 97-90-4538Ooictkcyj (Vitamin B12) [Mass/Vol]491.0 pg/aGIalmwx612.0-986.0The [facility] CenterComment on above:Performed By: #### VITB12, VITAD #### [facility] [address] [place] [address] Dr. Terrence RiosVITAMIN D 25 OHon 38-93-2425IFC D 25-OH39.0 ng/mLNormalThe St. [facility]'S Medical CenterComment on above:Performed By: #### NTXCL #### [facility] [address] [place] [address] Clem KararturVIT D RANGESSEE BELOWKettering Health DaytonComment on above: Result Comment: <20 ng/mL Vit D deficient 20 - <30 ng/mL Vit D insufficient 30 - 100 ng/mL Vit D sufficient >100 ng/mL Potential ToxicityPerformed By: #### NTXCL #### [facility] [address] [place] [address] Clem KarenRENAL FUNCTION PANELon 53-89-4051Sqcehbi [Mass/Vol]4.3 g/dLNormal 3.5-5.0The [facility] CenterComment on above:Performed By: #### RENAL #### [facility] [address] [place] [address] Dr. Terrence RiosCalcium [Mass/Vol]8.8 mg/dLNormal8.4-10.2[facility] Comment on above:Performed By: #### RENAL #### [facility] [address] [place] [address] Dr. Terrence RiosChloride [Moles/Vol]100 mmol/GCidjsm38-850VtiKettering Health Preble Comment on above:Performed By: #### RENAL #### [facility] [address] [place] [address] Dr. Terrence RiosCO2 [Moles/Vol]29.4 mmol/IWazhms94.0-30.0The [facility] Comment on above:Performed By: #### RENAL #### [facility] [address] [place] [address] Dr. Terrence RiosCreatinine [Mass/Vol]1.03 mg/dLNormal0.52-1.04The [facility] Medical CenterComment on above:Performed By: #### RENAL #### [facility] [address] [address] [address] Ocampo ChangEGFR-AF JAMAICAN>60Normal>=60The [facility] Medical CenterComment on above:Performed By: #### RENAL #### [facility] [address] [address] [address] Ocampo ChangEGFR-NON AF TKMYWFQC85 mL/min/1.95m1Awgvclmxxx low>=60The [facility] CenterComment on above:Performed By: #### RENAL #### [facility] [address] [address] [address] Terrence RiosGlucose [Mass/Vol]129 mg/dLCritically qdrr68-697Aff [facility] on above:Performed By: #### RENAL #### [facility] [address] [address] [address] Terrence RiosPhosphate [Mass/Vol]3.7 mg/dLNormal2.5-4.5The [facility] Comment on above:Performed By: #### RENAL #### [facility] [address] [place] [address] Dr. Terrence RiosPotassium [Moles/Vol]4.6 mmol/LNormal3.4-5.0The [facility] Comment on above:Performed By: #### RENAL #### [facility] [address] [address] [address] Terrence RiosSodium [Moles/Vol]136 mmol/LCritically ijb646-046Ygx [facility] Townshipment on above:Performed By: #### RENAL #### [facility] [address] [address] [address] Terrence RiosUrea nitrogen [Mass/Vol]17.0 mg/dLNormal7.0-17.0The [facility] CenterComment on above:Performed By: #### RENAL #### [facility] [address] [place] [address] Dr. Terrence RiosVITAMIN D 25 OHon 52-25-5835TEX D 25-OH39.6 ng/mLNormalKettering Health PrebleComment on above:Performed By: #### PTHINT #### [facility] [address] [place] [address] Clem ChristianVIT D RANGESSEE BELOWNoWayne HealthCare Main CampusComment on above: Result Comment: <20 ng/mL Vit D deficient 20 - <30 ng/mL Vit D insufficient 30 - 100 ng/mL Vit D sufficient >100 ng/mL Potential ToxicityPerformed By: #### PTHINT #### [facility] [address] [place] [address] Clem CheenN-TELOPEPTIDE CROSS-LINKS (NTx) Urineon 62-78-5103Obqizivcxj, Urine 31.8 mg/dLNormalNot Estab.[facility] PrebleComment on above:Result Comment: Performed at: CBPerformed By: #### NTXCL #### [facility] [address] [place] [address] Clem KarenInterpretive Guide:CommentFirelands Regional Medical Center South Campus on above:Result Comment: The N-telopeptide and Creatinine are used to calculate the N-telo/Creat. Ratio which is referred to as NTx . Suggested guidelines for the clinical use of NTx are as follows: 1. Menopausal Women not on Hormone Replacement Therapy (HRT): Women with a baseline NTx value >38 are at significant risk for a decrease in bone mineral density (BMD) after 1 year compared to women on HRT. The probability of a decline in BMD increases with NTx value as follows: (1): Baseline NTx Probability of Decrease in BMD 18- 38 1.4 p=0.28 38- 51 2.5 p=0.03 51- 67 3.8 p=0.0006 67-188 17.3 p=0.0001 2. Menopausal Women Receiving Antiresorptive Therapy: The probability that treatment is effective after three months is increased when the measured NTx value is or=30% from baseline.[1] . 3. Patients with Paget's Disease of Bone: The probability that treatment is effective after one month is increased when the measured NTx value is within the reference range, or NTx has decreased >or=30% from baseline.[2] . 1. Teofilo CH, Asif NH, Senthil GS, et al. Am J Med, 102:29-37,1996. (1):M757, 1996. 2. Shlomo H, Bib Cui, et al. J Bone Min Res.11(1):M75,1995 . Performed at: BNPerformed By: #### NTXCL #### [facility] [address] [place] [address] Clem KarenN-telo/Creat. Ratio13 nM BCE/mM CrNormal0-89The [facility] Comment on above:Result Comment: Performed at: BNPerformed By: #### NTXCL #### [facility] [address] [place] [address] Clem KarenN-kleqifydlic01 nmol BCENormalNot Estab.The St. [facility]S Medical CenterComment on above:Result Comment: Performed at: BNPerformed By: #### NTXCL #### [facility] [address] [place] [address] Clem KarenPTH INTACTon 97-31-7478UKI, Zexvqb03 pg/mUUpaekz53-43Zvr St[facility] CenterComment on above:Performed By: #### PTHINT #### [facility] [address] [place] [address] Clem KarenCALCIUM 24 HR URINEon 85-22-7013PQOT, 24 HR UR42.0 mg/24 hr Critically gxg010.0-300.0The [facility] CenterComment on above:Performed By: #### NTXCL #### [facility] [address] [place] [address] Clem KarenUR CALCIUM1.5 mg/dLNormal0.0-21.0The [facility] CenterComment on above:Performed By: #### NTXCL #### [facility] [address] [place] [address] Clem KarenUR TOT YYG6873 ml/[address] [facility]S Medical CenterComment on above: Performed By: #### NTXCL #### [facility] [address] [place] [address] Clem KarenCREA 24 HR URINEon 50-07-0935EUNN, 24 HR UR847.28 mg/24 hrNormal 800.00-1,800.00The [facility] CenterComment on above:Performed By: #### NTXCL #### [facility] [address] [place] [address] Clem KarenURINE CREAT30.26 mg/jKKocbdt13.00-300.00The [facility] CenterComment on above:Performed By: #### NTXCL #### [facility] [address] [place] [address] Clem KarenMAGNESIUMon 75-87-2739Kzhychgxf [Mass/Vol]1.8 mg/dLNormal1.6-2.3The [facility] CenterComment on above:Performed By: #### MG, RENAL #### [facility] [address] [place] [address] Clem KarenRENAL FUNCTION PANELon 58-92-3789Grslepz [Mass/Vol]4.5 g/dLNormal 3.5-5.0The [facility] CenterComment on above:Performed By: #### MG, RENAL #### [facility] [address] [place] [address] Clem KarenCalcium [Mass/Vol]9.2 mg/dLNormal8.4-10.2[facility] Comment on above:Performed By: #### MG, RENAL #### [facility] [address] [place] [address] Clem KarenChloride [Moles/Vol]100 mmol/GUyreba90-136Azu [facility] Comment on above:Performed By: #### MG, RENAL #### [facility] [address] [place] [address] Clem KarenCO2 [Moles/Vol]30.7 mmol/LCritically high22.0-30.0The [facility] CenterComment on above:Performed By: #### MG, RENAL #### [facility] [address] [id number] Clem KarenCreatinine [Mass/Vol]1.09 mg/dLCritically high0.52-1.04The [facility] CenterComment on above:Performed By: #### MG, RENAL #### [facility] [address] [address] Clem KarenEGFR-AF ESLIOXOX19 mL/min/1.12s9Yuztbgunby low>=60The [facility] CenterComment on above:Performed By: #### MG, RENAL #### [facility] [address] [address] Clem KarenEGFR-NON AF KMZNPZAP24 mL/min/1.18z3Thgkqdfkyj low>=60The [facility] CenterComment on above:Performed By: #### MG, RENAL #### [facility] [address] [place] [address] Clem KarenGlucose [Mass/Vol]120 mg/dLCritically lczd56-670Dho St[facility] CenterComment on above:Performed By: #### MG, RENAL #### [facility] [address] [place] [address] Clem KarenPhosphate [Mass/Vol]3.8 mg/dLNormal2.5-4.5The [facility] Comment on above:Performed By: #### MG, RENAL #### [facility] [address] [place] [address] Clem KarenPotassium [Moles/Vol]4.2 mmol/LNormal3.4-5.0The [facility] Comment on above:Performed By: #### MG, RENAL #### [facility] [address] [place] [address] Clem KarenSodium [Moles/Vol]141 mmol/SZfcjkr302-071Gpa [facility] Comment on above:Performed By: #### MG, RENAL #### [facility] [address] [place] [address] Clem KarenUrea nitrogen [Mass/Vol]21.0 mg/dLCritically high7.0-17.0The [facility] CenterComment on above:Performed By: #### MG, RENAL #### [facility] [address] [place] [address] Clem KarenSODIUM 24 HR URINEon 85-82-3096VC, 24 HR UR81 mmol/24 hrBsgigh54-[address] [facility] CenterComment on above:Performed By: #### NTXCL #### [facility] [address] [place] [address] Clem KarenSodium (U) [Moles/Vol]29 mmol/LCritically kic41-83Lmy [facility] CenterComment on above:Performed By: #### NTXCL #### [facility] [address] [place] [address] Clem KarenVITAMIN D 25 OHon 29-02-7402EYO D 25-OH43.9 ng/mLNormalThe St. [facility] CenterComment on above:Performed By: #### VITAD #### [facility] [address] [place] [address] Clem KarenVIT D RANGESSEE BELOWNormalThe St. [facility] CenterComment on above: Result Comment: <20 ng/mL Vit D deficient 20 - <30 ng/mL Vit D insufficient 30 - 100 ng/mL Vit D sufficient >100 ng/mL Potential ToxicityPerformed By: #### VITAD #### [facility] [address] [place] [address] Clem KarenCULTURE URINEon 33-56-4354YZIEJMN URINECulture Observations: VERY LIGHT GROWTH OF MIXED GENITAL ZAINAB. NO POTENTIAL PATHOGENS SEEN.NormalThe St. [facility] CenterComment on above:Performed By: #### NTXCL #### [facility] [address] [place] [address] Clem KarenUA RANDOM W/MICROSCOPICon 93-97-1222GYNOHBHVWCGO SEENNormalNONE SEEN The [facility] CenterCompromed[facility] on above:Performed By: #### PTHINT #### [facility] [address] [place] [address] Clem KarenBilirubin Ql (U)NegativeNormalNEGATIVEThe St. [facility] CenterComment on above:Performed By: #### PTHINT #### [facility] [address] [address] Clem KarenCASTNONE SEENNormalNONE SEENKettering Health PrebleComment on above: Performed By: #### PTHINT #### [facility] [address] [address] Clem KarenClarity (U)CLEARNormalCLEARKettering Health PrebleComment on above: Performed By: #### PTHINT #### [facility] [address] [address] Clem KarenColor (U)LT. YELLOWNormalYELLOWKettering Health PrebleComment on above:Performed By: #### PTHINT #### [facility] [address] [place] [address] Clem KarenCrystals LM Nom (Urine sed)NONE SEENNormalNONE SEENKettering Health PrebleCompromedica mon[facility] hospital on above:Performed By: #### PTHINT #### [facility] [address] [place] [address] Clem KarenEpithelial cells LM Ql (Urine sed)FEWAbnormalNONE SEEN /RAREKettering Health PrebleComment on above:Performed By: #### PTHINT #### [facility] [address] [place] [address] Clem KarenGlucose Ql (U)NegativeNormalNEGATIVEKettering Health PrebleCompromedica mon[facility] hospital on above:Performed By: #### PTHINT #### [facility] [address] [place] [address] Clem KarenHemoglobin Ql (U)NegativeNormalNEGATIVEKettering Health PrebleComment on above:Performed By: #### PTHINT #### [facility] [address] [place] [address] Clem KarenKetones Ql (U)NegativeNormalNEGATIVEKettering Health PrebleCompromedica mon[facility] on above:Performed By: #### PTHINT #### [facility] [address] [place] [address] Clem KarenLEUKOCYTESNegativeNormalNEGATIVEKettering Health PrebleCompromedica [facility] hospital on above:Performed By: #### PTHINT #### [facility] [address] [place] [address] Clem CheenMUCOUSNONE SEENNormalNONE SEENThe St. [facility] CenterComment on above: Performed By: #### PTHINT #### [facility] [address] [place] [address] Clem CheenNitrite Ql (U)NegativeNormalNEGATIVEThe [place] [facility] HospitalComment on above:Performed By: #### PTHINT #### [facility] [address] [place] [address] Clem KarenpH (U)6.0 [pH]Normal5-9The [place] HospitalComment on above: Performed By: #### PTHINT #### [facility] [address] [place] [address] Clem KarenRBCNONE SEENAbnormal0-2The [facility] CenterComment on above: Performed By: #### PTHINT #### [facility] [address] [place] [address] Clem KarenSPEC GRAVITY<=1.435Giqtetsj0.005-<=1.025The [facility] CenterComment on above:Performed By: #### PTHINT #### [facility] [address] [place] [address] Clem CheenUA PROTEINNegativeNormalNEGATIVE/ TRACEThe St. [facility] Medical CenterComment on above:Performed By: #### PTHINT #### [facility] [address] [place] [address] Clem CheenUrobilinogen Qn (U)0.2 {Alba'U}/dLNormal0.2 - 1.0The [place] [facility] HospitalComment on above:Performed By: #### PTHINT #### [facility] [address] [place] [address] Clem KarenWBCNONE SEENNormalNONE SEENThe St[facility] CenterComment on above: Performed By: #### PTHINT #### [facility] [address] [place] [address] Clem Cheen Vital Signs Date TimeVital SignValuePerforming WuqpsdhheCyfmtjba18-69-3657 08:46-0400 Diastolic blood drjitgcz89 mm[Hg]Zafar Reyes DO Work Phone: 1(419)[address] [place], [place] 0345010-29-2025 08:46-0400 Systolic blood cuvmddli994 mm[Hg]Zafar Reyes DO Work Phone: 1(419)[address] [place], [place] 0345010-29-2025 08:08-0400 Body enzhcz921.02 cmDaraulito Reyes DO Work Phone: 1(419)[address] [place], [place] 0345010-29-2025 08:08-0400 Body mass index (BMI) [Ratio]23.6 kg/l6Zgylqraulito Reyes DO Work Phone: 1(419)[address] [place], [place] 0345010-29-2025 08:08-0400 Body zpystjrowdh46.7 [degF]Zafar Reyes DO Work Phone: 1(419)[address] [place], [place] 0345010-29-2025 08:08-0400 Body gzxayp71.32 kgDaraulito Reyes DO Work Phone: 1(419)[address] [place], [place] 0345010-29-2025 08:08-0400 Heart rate85 /Hamzahd Girvin DO Work Phone: 1(419)[address] [place], [place] 0345010-29-2025 08:08-0400 Respiratory rate99 /Nely Girvin DO Work Phone: 1(419)[address] [place], [place] 0345010-28-2025 10:44-0400 Diastolic blood vqybdwbl33 mm[Hg]Zafar Marshallnel DO Work Phone: 1(419)[address] [place], [place] 0345010-28-2025 10:44-0400 Heart rate74 /minDavid Girvin DO Work Phone: 1(419)[address] [place], [place] 0345010-28-2025 10:44-0400 Respiratory rate18 /minDavid Girvin DO Work Phone: 1(419)[address] [place], [place] 0345010-28-2025 10:44-0400 SaO2% (BldA) [Mass fraction]100 %Zafar Reyes DO Work Phone: 1(419)[address] [place], [place] 0345010-28-2025 10:44-0400 Systolic blood tnyjfzec527 mm[Hg]Zafar Reyes DO Work Phone: [facility]10-14-2025 09:54-0400 Body xusnig935.5 cmAgaby Hughes MD Work Phone: 1(963)[address]10-14-2025 09:54-0400Body mass index (BMI) [Ratio]24.51 kg/w0KowcdMaxim Hughes MD Work Phone: 1(341)[address] [place], [place] [address]Gssergirmm12-98-8918 09:54-0400Body ngrovr48.78 kgMaxim Hughes MD Work Phone: 1(272)[address] [place], [place] [address]Zmaywqofvr72-32-4165 09:54-0400Diastolic blood bfvsvxeq45 mm[Hg]Maxim Hughes MD Work Phone: 1(707)[address] [place], [place] [address]Fglvwfekvb95-05-4076 09:54-0400Heart rate84 /min Maxim Hughes MD Work Phone: 1(576)[facility] [place], [place] [address]Zwgfexrxfa40-93-7282 09:54-0400Respiratory rate18 /minMaxim Hughes MD Work Phone: 1(592)[address] [place], [place] [address]Rixewniomv83-01-0389 09:54-9684PsB3% (BldA) [Mass fraction]97 %Maxim Hughes MD Work Phone: 1(403)[address] [place], [place] [address]Enrstvasct39-62-1552 09:54-0400Systolic blood ukwmqkfu188 mm[Hg]Maxim Hughes MD Work Phone: 1(588)[address]08-07-2025 10:04-0400Body ceaofm946.02 cmDaraulito Reyes DO Work Phone: [phone]08-07-2025 10:04-0400 Body mass index (BMI) [Ratio]23.7 kg/a8MtdlmZafar Reyes DO Work Phone: [phone])949-15[facility]08-07-2025 10:04-0400 Body mgubufeclvj78.3 [degF]Zafar Reyes DO Work Phone: 1(419)483-[address] [place], [place] 7583208-07-2025 10:04-0400 Body .78 kgDarashidedison Saman DO Work Phone: 1(428)[address]08-07-2025 10:04-0400 Diastolic blood umnhpwzv63 mm[Hg]Zafar Saman DO Work Phone: 1(906)[address] [place], [place] 0345008-07-2025 10:04-0400 Heart rate71 /Kellyjohn Reyes DO Work Phone: 1(608)[address] [place], [place] 0345008-07-2025 10:04-0400 SaO2% (BldA) [Mass fraction]99 %Zafar Reyes DO Work Phone: 1(633)[address] [place], [place] 0345008-07-2025 10:04-0400 Systolic blood jlacandz340 mm[Hg]Zafar Reyes DO Work Phone: 1(713)[address] [place], [place] 0345004-29-2025 11:10-0400 Diastolic blood uirjchva59 mm[Hg]Zafar Reyes DO Work Phone: 1(591)[address] [place], [place] 0345004-29-2025 11:10-0400 Heart rate82 /Kellyjohn Olivaresnel DO Work Phone: 1(339)[address] [place], [place] 0345004-29-2025 11:10-0400 Systolic blood hjraqwlt295 mm[Hg]Zafar Reyes DO Work Phone: 1(799)[address] [place], [place] 0345004-15-2025 09:56-0400 Body jgopak750.5 Kory Hughes MD Work Phone: [phone] LouisUchqkodghg68-67-7468 09:56-0400Body mass index (BMI) [Ratio]24.87 kg/m0QskyuMaxim Hughes MD Work Phone: [phone] LouisWlcfosenme20-20-6050 09:56-0400Body oyddaj63.69 kgMaxim Hughes MD Work Phone: [facility] LouisWewzebsycg13-83-8230 09:56-0400Diastolic blood vndcmtel39 mm[Hg]Maxim Hughes MD Work Phone: 1(419)502-[address] [place], [place] [address]Iwnccgycjc98-37-7850 09:56-0400Heart rate81 /min Maxim Hughes MD Work Phone: 1(852)771-[address] [place], [place] [address]Vaqivswnfc96-56-3579 09:56-0400Respiratory rate18 /minMaxim Hughes MD Work Phone: [address] [place], [place] [address]Hapmmtimxz54-66-6843 09:56-4944VpQ6% (BldA) [Mass fraction]99 %Maxim Hughes MD Work Phone: 1(491)405-[address] [place], [place] [address]Fdwrcqmejd39-20-5429 09:56-0400Systolic blood mm[Hg]Maxim Hughes MD Work Phone: 1(941)293-[address] [place], [place] [address]Mfxmhtdeqq06-49-8717 08:29-0500Body tpmquw440.02 cmDaraulito Reyes DO Work Phone: 1(689)[address] [place], [place] 0345001-30-2025 08:29-0500 Body mass index (BMI) [Ratio]23.9 kg/h7Vaerxraulito Reyes DO Work Phone: 1(861)[address] [place], [place] 0345001-30-2025 08:29-0500 Body tpyqtbctnis58.3 [degF]Zafar Reyes DO Work Phone: 1(761)[address] [place], [place] 0345001-30-2025 08:29-0500 Body .23 kgDaraulito Reyes DO Work Phone: 1(441)[address] [place], [place] 0345001-30-2025 08:29-0500 Diastolic blood wwxapyls39 mm[Hg]Zafar Reyes DO Work Phone: 1(790)[address] [place], [place] 0345001-30-2025 08:29-0500 Heart rate63 /Nely Reyes DO Work Phone: 1(915)[address] [place], [place] 0345001-30-2025 08:29-0500 Respiratory rate16 /Nely Reyes DO Work Phone: 1(918)[address] [place], [place] 0345001-30-2025 08:29-0500 SaO2% (BldA) [Mass fraction]99 %Zafar Reyes DO Work Phone: 1(419)[address] [place], [place] 0345001-30-2025 08:29-0500 Systolic blood onpgkdds130 mm[Hg]Zafar Olivaresnel DO Work Phone: 1(177)[address] [place], [place] 0345001-22-2025 13:32-0500 Body .02 cmDarashidedison Olivaresvin DO Work Phone: 1(424)[address] [place], [place] 0345001-22-2025 13:32-0500 Body mass index (BMI) [Ratio]23.3 kg/w8Sodkt Marshallvin DO Work Phone: 1(088)[address] [place], [place] 0345001-22-2025 13:32-0500 Body ohvkuk44.87 kgDaraulito Olivaresvin DO Work Phone: 1(555)[address] [place], [place] 0345001-22-2025 13:32-0500 Diastolic blood eeqsvkyl49 mm[Hg]Zafar Reyes DO Work Phone: 1(298)[address] [place], [place] 0345001-22-2025 13:32-0500 Heart rate77 /minDjohn Olivaresnel DO Work Phone: 1(430)[address] [place], [place] 0345001-22-2025 13:32-0500 Systolic blood ljzkuelo947 mm[Hg]Zafar Reyes DO Work Phone: 1(276)[address] [place], [place] 0345010-29-2024 11:06-0400 Diastolic blood adxcvgwl08 mm[Hg]Zafar Reyes DO Work Phone: 1(980)[address] [place], [place] 0345010-29-2024 11:06-0400 Heart rate74 /Kellyjohn Reyes DO Work Phone: 1(445)[address] [place], [place] 0345010-29-2024 11:06-0400 Systolic blood bsddqzin137 mm[Hg]Zafar Reyes DO Work Phone: 1(420)[address] [place], [place] 0345010-15-2024 10:55-0400 Body hubimx551.5 Kory Hughes MD Work Phone: [facility] LouisQjimozeiyv65-22-5937 10:55-0400Body mass index (BMI) [Ratio]24.14 kg/t4UzbunMaxim Hughes MD Work Phone: 1(419)502-[address] [place], [place] [address]Vrpddnrtli05-76-7642 10:55-0400Body rfavnn85.88 kgMaxim Hughes MD Work Phone: 1(871)[address] [place], [place] 1568910-15-2024 10:55-0400Diastolic blood naqmxvwp10 mm[Hg]Maxim Hughes MD Work Phone: 1(938)[address] [place], [place] 1568910-15-2024 10:55-0400Heart rate78 /min Maxim Hughes MD Work Phone: 1(480)[address] [place], [place] 1568910-15-2024 10:55-0400Respiratory rate18 /minMaxim Hughes MD Work Phone: 1(370)[facility] [place], [place] [address]Oyjosuftet04-57-7794 10:55-0400Systolic blood edtfffzu188 mm[Hg]Maxim Hughes MD Work Phone: 1(072)[address] [place], [place] 1568907-25-2024 09:34-0400Body uzabkl628.02 cmDO Zafar Reyes Work Phone: 1(457)[address]07-25-2024 09:34-0400 Body mass index (BMI) [Ratio]23.9 kg/m2DO Zafar Reyes Work Phone: 1(173)[address] [place], [place] 0345007-25-2024 09:34-0400 Body ckpyppdvtvj18.8 [degF]DO Zafar Reyes Work Phone: 1(304)[address] [place], [place] 0345007-25-2024 09:34-0400 Body qlquea67.37 kgDO Zafar Reyes Work Phone: 1(045)[address]07-25-2024 09:34-0400 Diastolic blood amzxbeyi31 mm[Hg]DO Zafar Reyes Work Phone: 1(240)[address]07-25-2024 09:34-0400 SaO2% (BldA) [Mass fraction]99 %DO Zafar Reyes Work Phone: 1(939)[address]07-25-2024 09:34-0400 Systolic blood xlaxoovi630 mm[Hg]DO Zafar Reyes Work Phone: [facility]04-24-2024 09:24-0400 Diastolic blood fjytzwbd94 mm[Hg]DO Zafar Reyes Work Phone: [facility]04-24-2024 09:24-0400 Heart rate70 /minDO Zafar Reyes Work Phone: [facility]04-24-2024 09:24-0400 Systolic blood mfdhkwfu908 mm[Hg]DO Zafar Reyes Work Phone: [facility]01-18-2024 09:10-0500 Body caompx716.02 cmDaraulito Reyes Other [employer] Other 011143-18-7516 09:10-0500Body mass index (BMI) [Ratio] 23.91 kg/m5Czcldraulito Reyes Other [employer] Other 119387-30-2318 09:10-0500Body scdksmaajpi35.1 [degF]Zafar Reyes Other [employer] Other 300936-10-0402 09:10-0500Body nrwtba21.24 kgDaraulito Reyes Other [facility] Other 753393-48-7810 09:10-0500Diastolic blood bmxnmews45 mm[Hg] Zafar Reyes Other [facility] Other 01-18-2024 09:10-0500Respiratory rate18 /Nely Reyes Other [employer] Other 426404-62-4754 09:10-0595ZgX3% (BldA) [Mass fraction]99 % Zafar Reyes Other [facility] Other 01-18-2024 09:10-0500Systolic blood bxlccbqa141 mm[Hg] Zafar Reyes Other [employer] Other 10-24-2023 13:20-0400Diastolic blood mzuyqhqa65 mm[Hg] DO Zafar Reyes Work Phone: [facility]10-24-2023 13:20-0400 Heart nuam946 /minDO Zafar Reyes Work Phone: [facility]10-24-2023 13:20-0400 Systolic blood agcsxbee554 mm[Hg]DO Zafar Reyes Work Phone: [facility]08-01-2023 09:55-0400 Body widwqk180.02 [place] Other [employer] [facility] [employer] Other 08-01-2023 09:55-0400Body mass index (BMI) [Ratio]23.2 kg/q3XrnxyuLilia [place] Other [employer] Other 08-01-2023 09:55-0400Body jicayj81.42 kgLilia Pond Other [employer] Other 08-01-2023 09:55-0400Diastolic blood ifrsmeff56 mm[Hg] [place] Other [employer] Other 08-01-2023 09:55-0400Respiratory rate18 /minLilia Pond Other [employer] Other 08-01-2023 09:55-2596PuW4% (BldA) [Mass fraction]98 % [place] Other [employer] Other 08-01-2023 09:55-0400Systolic blood ildnidtf883 mm[Hg] [place] Other [facility] [employer] Other 01-05-2023 10:50-0500Body ofcotg008.02 cmDaraulito Reyes Other [employer] Other 01-05-2023 10:50-0500Body mass index (BMI) [Ratio] 24.27 kg/i1FvjteZafar Reyes Other [employer] Other 01-05-2023 10:50-0500Body bkzgmtsgrsi96.7 [degF]Zafar Reyes Other [facility] Other 188470-89-2482 10:50-0500Body njavwg01.14 kgDaraulito Reyes Other [employer] Other 438556-82-1074 10:50-0500Diastolic blood odhxplte12 mm[Hg] Zafar Reyes Other [facility] Other 438735-97-9158 10:50-0500Respiratory rate16 /Nely Reyes Other [employer] Other 01-05-2023 10:50-4429QlL5% (BldA) [Mass fraction]99 % Zafar Reyes Other [employer] Other 01-05-2023 10:50-0500Systolic blood vxxgoldm754 mm[Hg] Zafar Reyes Other [employer] Other 10-03-2022 09:20-0400Body xolupyzcjzs68.5 [degF]DO Zafar Reyes Work Phone: [facility]10-03-2022 09:20-0400 Respiratory rate16 /minDO Zafar Reyes Work Phone: [phone]10-03-2022 09:20-0400 SaO2% (BldA) [Mass fraction]99 %DO Zafar Reyes Work Phone: 1(879)970[facility]64[facility]08-19-2022 12:47-0400 Diastolic blood pwmemcoj54 mm[Hg]DO Zafar Reyes Work Phone: 1(711)[address]08-19-2022 12:47-0400 Heart rate80 /Marsha Reyes Work Phone: 1(045)[address]08-19-2022 12:47-0400 Respiratory rate16 /Marsha Reyes Work Phone: 1(342)[address]08-19-2022 12:47-0400 SaO2% (BldA) [Mass fraction]98 %DO Zafar Reyes Work Phone: 1(286)[address]08-19-2022 12:47-0400 Systolic blood avdcosmt306 mm[Hg]DO Zafar Reyes Work Phone: 1(748)[address]08-19-2022 11:00-0400 Body .48 cmDO Zafar Reyes Work Phone: 1(019)[address]08-19-2022 11:00-0400 Body ifzuecjifom42 [degF]DO Zafar Reyes Work Phone: 1(572)[address]08-19-2022 11:00-0400 Body .96 kgDO Zafar Reyes Work Phone: 1(724)[address]06-23-2022 10:50-0400 Body vriluy739.02 cmDaviedison Reyes Other [employer] [facility] [employer] Other 743114-02-4517 10:50-0400Body mass index (BMI) [Ratio] 23.82 kg/y8Ptixoraulito Reyes Other [employer] Other 06-23-2022 10:50-0400Body pdovcjsyaws16.1 [degF]Zafar Reyes Other [employer] Other 9-144251-12962372-41-8451 10:50-0400Body .01 kgDaraulito Reyes Other [employer] Other 896343-67-2036 10:50-0400Diastolic blood mm[Hg] Zafar Reyes Other [employer] Other 483442-86-0639 10:50-0400Respiratory rate18 /minDaviedison Reyes Other [employer] Other 301011-23-3792 10:50-5214KfD3% (BldA) [Mass fraction]99 % Zafar Reyes Other [employer] Other 560686-28-1344 10:50-0400Systolic blood mm[Hg] Zafar Reyes Other [employer] Other 12-16-2021 10:50-0500Body akhotk652.02 cmDaraulito Reyes Other [employer] Other 12-16-2021 10:50-0500Body mass index (BMI) [Ratio] 24.62 kg/k3Ifoqyraulito Reyes Other [employer] Other 12-16-2021 10:50-0500Body wcwrwfogsxt52.3 [degF]Zafar Reyes Other [employer] Other 12-16-2021 10:50-0500Body slzqeh01.05 kgDaraulito Reyes Other [employer] Other 12-16-2021 10:50-0500Diastolic blood fxmurxwj96 mm[Hg] Zafar Reyes Other [employer] Other 12-16-2021 10:50-0500Respiratory rate18 /minDjohn Reyes Other [employer] Other 12-16-2021 10:50-7648RyR7% (BldA) [Mass fraction]97 % Zafar Reyes Other [employer] Other 12-16-2021 10:50-0500Systolic blood mm[Hg] Zafar Reyes Other [employer] Other Encounters Encounter DateEncounter TypeCare ProviderFacilityStart: 08-01-2025 End: 76-48-3379nbtkgsfagqTqofh Girvin DO Work Phone: [facility] [place]Start: 08-01-2025 End: 30-68-5570Znqpdac encounter procedureDaraulito Reyes DO-[facility] [place] Work Phone: Start: 21-20-2815Oczmyjuvzq Ellis Hughes MD-Infusion Therapy - O/P Work Phone: Start: 19-73-2124phqqjfsgnoXyhzc Sabbagh [facility]2025 End: 62-67-2512Qqrlly Roger Hughes MD Work Phone: noms [facility] Manuel EndocrinologyComment on above:Age- related osteoporosis without current pathological fracture (Primary Dx)Advice OnlyStart: 07-17-2025 End: 09-10-2504Tnyvdo Mau Hughes MD Work Phone: [facility] [place] [facility]ocrinologyStart: 07-17-2025 End: 86-75-0841Fnvahp flowsheetMaxim Hughes MD Work Phone: [facility] EndocrinologyStart: 07-17-2025 End: 48-67-2107Rwzker outpatient visit 25 minutesMaxim Hughes MD Work Phone: [facility] EndocrinologyComment on above:Age- related osteoporosis without current pathological fracture (Primary Dx); Vitamin D deficiencyStart: 07-17-2025 End: 31-22-0205cmyscxyvlnIXDWX F SABBAGHNot AvailableStart: 07-10-2025 End: 17-58-4045Qkwccux encounter procedureMaxim Hughes MD-[facility] Work Phone: Start: 07-10-2025 End: 69-13-2929qdhjyrxjdtJxmxt Girvin DO Work Phone: [facility] Work Phone: Start: 05-10-2025 End: 79-02-1415oemwqosauaUxfzy Girvin DO Work Phone: [facility] Work Phone: Start: 05-10-2025 End: 15-07-1725Zjyfpys encounter procedureZafar Reyes DO-[facility] [place] Work Phone: Start: 05-03-2025 End: 28-54-0395Grxhlbf encounter procedureZafar Reyes DO-[facility] Work Phone: Start: 05-03-2025 End: 76-00-1543zzscufnrkpTpvte Girvin DO Work Phone: [facility] Work Phone: Start: 03-29-2025 End: 10-82-4673Vcbcukv encounter [facility]REF[facility] Work Phone: Start: 03-29-2025 End: 53-35-3334cpwhyiavuuEqsfn Girvin DO Work Phone: [facility] Work Phone: Start: 02-15-2025 End: 92-33-6959Euvzuw outpatient visit 15 minutesEmwendy Dove MD Work Phone: [facility] DERMComment on above:Seborrheic keratosis (Primary Dx); Actinic keratosis; Lentigines; Capillary angioma; History of basal cell carcinomaStart: 02-15-2025 End: 92-35-3122fnhylkokftIORZA Yazan PERKINSINot AvailableStart: 02-15-2025 End: 68-89-4894Hwbxdm flowsheetEmwendy Dove MD Work Phone: noms [facility] DERMStart: 02-15-2025 End: 35-92-9787Xbzkbj flowsheetEmwendy Dove MD Work Phone: [facility] DERMStart: 02-01-2025 End: 48-36-6920Qjxzihd encounter procedureDavid Saman DO Work Phone: [facility] [place] Work Phone: Start: 02-01-2025 End: 98-93-1768raelvidhybNymgx Saman DO Work Phone: [facility] Work Phone: Start: 23-35-1080Bvlwwywscs RecurringDavid Saman DO Work Phone: [facility]fusion [facility] - O[facility] Work Phone: Start: 01-18-2025 End: 53-67-2083Cjzuzh flowsheetEugene R Kubitz DPM Work Phone: [facility] PODIATRYStart: 01-18-2025 End: 01-48-3521Hheiix flowsheetEugene R Kubitz DPM Work Phone: [facility] PODIATRYStart: 01-18-2025 End: 63-00-0976ngdavotgfwJTXKVH R KUBITZNot AvailableStart: 01-18-2025 End: 35-63-3728Hvrausk encounter procedureEugene Charmaine Rock DPM Work Phone: [facility] PODIATRYComment on above:Onychomycosis; Nail deformityStart: 01-16-2025 End: 06-06-3554Iwpppt Mau Hughes MD Work Phone: [facility]OCRINOLOGYStart: 01-16-2025 End: 58-20-1805Izknoo flowsTaylor Hughes MD Work Phone: [facility] ENDOCRINOLOGYStart: 01-16-2025 End: 77-21-5283Uehljs outpatient visit 25 minutesAhdenny Hughes MD Work Phone: noms ENDOCRINOLOGYComment on above:Age-related osteoporosis without current pathological fracture (CMS/HCC) (Primary Dx); Vitamin D deficiencyStart: 01-16-2025 End: 67-82-2160gpchxmjacpRSYVB F SABBAGHNot AvailableStart: 60-51-1477Tdc- patient / Non-visitDavid Girvin DO Work Phone: [facility] Work Phone: Start: 11-02-2024 End: 46-56-8265zqnruvijwhIllyt Girvin DO Work Phone: [facility] Work Phone: Start: 11-02-2024 End: 85-73-4151Waignfx encounter procedureDavid Girvin DO Work Phone: [facility] Work Phone: Start: 10-26-2024 End: 35-56-3571Acznsvj encounter procedureDavid Girvin DO Work Phone: [facility] [place] Work Phone: Start: 10-26-2024 End: 70-84-5803vykmxottwlAidrd Girvin DO Work Phone: [facility] Work Phone: Start: 10-25-2024 End: 57-53-5480wzjjvsfqtmVywmy Girvin DO Work Phone: [facility] Work Phone: Start: 10-25-2024 End: 30-15-9889Siwjxov encounter procedureDaraulito Reyes DO Work Phone: [facility] Work Phone: Start: 10-24-2024 End: 18-62-1355Zrjmwr flowsheetEugene R Kubitz DPM Work Phone: [facility] PODIATRYStart: 10-24-2024 End: 35-14-6092Yprwrg flowsheetEugene R Kubitz DPM Work Phone: [facility] PODIATRYStart: 10-24-2024 End: 44-08-6377Wkpbntj encounter procedureEugene R Kubitz DPM Work Phone: n[facility] PODIATRYComment on above:Nail deformity (Primary Dx); OnychomycosisStart: 10-24-2024 End: 31-05-1296xbxogdsjxfLBAGZO R KUBITZNot AvailableStart: 76-33-8130Crefwgkkuf RecurringZafar Reyes DO Work Phone: [facility] Work Phone: Start: 07-18-2024 End: 76-50-5949Pflfsu Mau Hughes MD Work Phone: noms ENDOCRINOLOGYStart: 07-18-2024 End: 17-90-2225Nhffhv Mau Hughes MD Work Phone: n[facility] ENDOCRINOLOGYStart: 07-18-2024 End: 67-10-5235zhjgohgdurAS David Girvin Work Phone: [facility] Work Phone: Start: 07-18-2024 End: 88-25-0825Nywfvkw encounter procedureDO Zafar Reyes Work Phone: [facility] [place] Work Phone: Start: 07-18-2024 End: 06-52-4230Qreprg outpatient visit 25 minutesMaxim Hughes MD Work Phone: noms ENDOCRINOLOGYComment on above:Age-related osteoporosis without current pathological fracture (CMS/HCC) (Primary Dx); Vitamin D deficiencyStart: 43-13-5044gxakfizrvzFdqvwtux:[place]ra[place] DHStart: 06-26-2024 End: 44-33-6103Qgceqm flowsheetEugene R Kubitz DPM Work Phone: [facility] PODIATRYStart: 06-26-2024 End: 69-24-9517Buurdp flowsheetEugene R Kubitz DPM Work Phone: [facility] PODIATRYStart: 06-26-2024 End: 70-19-6905oynzgmmidvYZ Zafar Reyes Work Phone: [facility] Work Phone: Start: 06-26-2024 End: 62-35-2694Jxoixrw encounter procedureEugene Kubitz DPM Work Phone: [facility] [place] Work Phone: Comment on above:Onychomycosis (Primary Dx)Start: 06-21-2024 End: 52-36-9546jhbrzxukrhHS David Girvin Work Phone: [facility] Work Phone: Start: 06-21-2024 End: 59-73-6242Axstaul encounter procedureDO Zafar Reyes Work Phone: [facility] [place] Work Phone: Start: 06-13-2024 End: 96-31-3773Mdoyrp flowsZainab BEARD SWS PTStart: 06-13-2024 End: 05-96-6371Iwxsss flowsheetMagnolia BEARD SWS PTStart: 06-13-2024 End: 16-46-7335WxckosaniPkupml Guzik PTANOMS SWS PTComment on above:Balance disorder (Primary Dx); CervicalgiaStart: 05-30-2024 End: 34-79-8668Xngyai flowsheetMagnolia BEARD SWS PTStart: 05-30-2024 End: 81-66-8987Valxvk flowsheetMagnolia BEARD SWS PTStart: 05-30-2024 End: 02-67-2537ZnoywmpuwQrlrzz Guzik PTANOMS SWS PTComment on above:Balance disorder (Primary Dx); CervicalgiaStart: 05-18-2024 End: 17-51-1228syumjnvttbTH David Girvin Work Phone: [facility] Work Phone: Start: 05-18-2024 End: 46-99-2350Qbeucpa encounter procedureDO Zafar Reyes Work Phone: [facility] [place] Work Phone: Start: 04-27-2024 End: 46-90-9929vvwqmjyjurPA David Girvin Work Phone: [facility] Work Phone: Start: 04-27-2024 End: 52-88-2016Phwgsah encounter procedureDO Zafar Reyes Work Phone: [facility] [place] Work Phone: Start: 04-24-2024 End: 38-26-5065ehkmzaiskhFT David Girvin Work Phone: [facility] Work Phone: Start: 04-24-2024 End: 47-05-3780Pstzjeq encounter procedureDO Zafar Reyes Work Phone: [facility] [place] Work Phone: Start: 03-28-2024 End: 08-60-5582njjugbmgekHH David Girvin Work Phone: [facility] Work Phone: Start: 03-28-2024 End: 67-59-0217Klzuhqa encounter procedureDO Zafar Reyes Work Phone: [facility] Work Phone: Start: 01-28-2024 End: 87-37-7561Fpvbxil encounter procedureDO Zafar Reyes Work Phone: [facility] [place] Work Phone: Start: 03-70-3093Fsbiklszbo RecurringDO Zafar Reyes Work Phone: [facility] - [facility] Work Phone: Start: 01-18-2024 End: 05-56-8695pmbhtpsmcvTE David Girvin Work Phone: [facility] Work Phone: Start: 01-18-2024 End: 76-94-2442Aokvnyi encounter procedureDO Zafar Reyes Work Phone: [facility] [place] Work Phone: Start: 11-02-2023 End: 90-50-8765xbnunjgivuWepuy Girvin Other [employer] Other Start: 89-50-3784Xxookuwzc encounterZafar [facility] LayaevueStart: 10-21-2023 End: 16-31-2300tdszmdvljnBshik Girvin Other [employer] Other Start: 15-20-1603Jfblhm outpatient visit 25 minutes Zafar Wallace [facility] [place]: 10-14-2023 End: 72-53-4379upbxyvknwgYU David Girvin Work Phone: [facility] Work Phone: Start: 10-14-2023 End: 95-46-8642Iyckcei encounter procedureDO Zafar Reyes Work Phone: [facility] [place] Work Phone: Start: 17-32-0497Moorplkonw RecurringDO Zafar Reyes Work Phone: [facility] Work Phone: Start: 07-14-2023 End: 30-06-9387lnevkqwvzaQL David Girvin Work Phone: [facility] Work Phone: Start: 07-14-2023 End: 27-68-7808Gznfkud encounter procedureDO Zafar Reyes Work Phone: [facility] Work Phone: Start: 07-06-2023 End: 35-66-4693cmlhjzcgwsCK David Girvin Work Phone: [facility] Work Phone: Start: 07-06-2023 End: 25-95-7342Qdngqxj encounter procedureDO Zafar Reyes Work Phone: [facility] [place] Work Phone: Start: 05-04-2023 End: 58-01-2516azzsjlfpwrGgmnnc Bailey Other [facility] [employer] Other Start: 48-24-7372Xhqghg outpatient visit 15 minutes [facility] ClydeStart: 04-13-2023 End: 20-57-3126woeevmwdyvTE David Girvin Work Phone: [facility] Work Phone: Start: 04-13-2023 End: 08-46-8981Wtlymys encounter procedureDO Zafar Reyes Work Phone: [facility] [place] Work Phone: Start: 03-11-2023 End: 82-83-1729Gedefzy encounter procedureDO Zafar Reyes Work Phone: [facility] Work Phone: Start: 12-23-2022 End: 94-62-4345clziutnqaaExztv Girvin Other [employer] Other Start: 91-38-1928Vgryrylgk encounterZafar Wallace [facility] Hospitaltart: 12-16-2022 End: 09-16-6977bmjspnzygdMU David Girvin Work Phone: [facility] Work Phone: Start: 12-16-2022 End: 20-04-2499Kvkusjp encounter procedureDO Zafar Reyes Work Phone: [facility] [place] Work Phone: Start: 10-08-2022 End: 48-19-4994ztfzbpdwlnYuzka Girvin Other [employer] Other Start: 78-75-1855Bapzxc outpatient visit 25 minutes Zafar Wallace [facility] [place] ValleyNikkietart: 10-02-2022 End: 97-87-0469eubaruaeecXN David Girvin Work Phone: [facility] Work Phone: Start: 10-02-2022 End: 12-29-4202Srdmzwm encounter procedureDO Zafar Reyes Work Phone: [facility] Hospital[facility]: 05-22-2022 End: 79-59-7208Edbiwzfoy to same day surgery centerDO Zafar Reyes Work Phone: [facility]-Digestive HealthStart: 05-20-2022 End: 65-63-3910Vxzztvp encounter procedureDO Zafar Reyes Work Phone: [facility]-Wng-Sqxoqkjf Testing Start: 04-22-2022 End: 43-62-0361jgqtbbkfkrEmywt Girvin Other [employer] Other Start: 77-46-0801Ugrbbvuyf encounterDaraulito Wallace [facility] [place]Start: 04-02-2022 End: 40-18-6842uplezseulrUdtbrrf Ditty Other [employer] Other Start: 48-76-7545Vwkmpevud encounterCamlalo Carl GastroenterologyStart: 03-31-2022 End: 39-99-5651hrjrfqfajkKuxkh Girvin Other [employer] Other Start: 79-84-5407Mxkyzuaqi encounterDaraulito Wallace [facility] [place]Start: 03-31-2022 End: 92-83-2574Zpqxpyw encounter procedureDO Zafar Reyes Work Phone: [facility] [place]Start: 03-26-2022 End: 42-99-3943lpzqwvcjloRnepf Girvin Other [employer] Other Start: 22-87-4284Obvspn outpatient visit 25 minutes Zafar Wallace [facility] [place]Start: 03-20-2022 End: 25-39-0024dacmbdjobbLG ZAFAR REYESFacility:V0Xrwui: 03-10-2022 End: 53-17-2065fxvrpvqtcvRadrq Girvin Other [employer] Other Start: 34-02-7624Olarcnudf encounterDaraulito Wallace [facility] [place]Start: 03-10-2022 End: 63-35-6563Rostasu encounter procedureDO Zafar Reyes Work Phone: [facility] Start: 03-04-2022 End: 45-98-7092qdjhhokwlrOxudt Girvin Other [employer] Other Start: 86-70-5420Pddsbghpb encounterDaraulito Wallace [facility] [place]Start: 12-31-2021 End: 34-03-5420bdgyxwakwxSqlde Girvin Other [employer] Other Start: 59-15-4533Sjsnhynsp encounterDaraulito Wallace [facility] [place]Start: 12-06-2021 End: 08-45-2607cighzsfpnpWHDDZ SABBAGHFacility:Y5Jbqgy: 09-18-2021 End: 97-92-1608lkroupfwdmRuurc Girvin Other [employer] Other Start: 17-63-7646Xckrix outpatient visit 25 minutes Zafar Wallace [facility] [place]Start: 05-18-2021 End: 70-58-3450pwhfjzdunbKEFSM SABBAGHFacility:Q6Esfuz: 04-22-2021 End: 56-33-8184oghfjzlgqwWR ZAFAR REYESFacility:H1 Procedures DateProcedureProcedure DetailPerforming ClinicianStart: 23-85-0330Nscsl culture Zafar Reyes DO Work Phone: Start: 52-99-6145Udkflmbjd mammography of bilateral breastJose Roberto Reyes DO Work Phone: Start: 42-32-4618TXOUKJKCCSM SKIN LESIONEmily A Petitti MD Work Phone: Start: 22-24-9411Wqjsl X-ray abdomenDO Zafar Reyes Work Phone: Start: 40-51-0228Mulii X-ray abdomenDO Zafar Reyes Work Phone: Start: 68-24-5208Ssbumrlr identified in Urine by Kriss Reyes Work Phone: Start: 39-73-9367Pifcn Kriss Reyes Work Phone: Start: 80-90-0157Cjvcclogn mammography of bilateral breastsDO Zafar Reyes Work Phone: Start: 40-61-6198Vcyp energy X-ray absorptiometryDO Zafar Reyes Work Phone: Start: 23-79-3477Flxet Kriss Reyes Work Phone: Start: 13-83-9999Plyzhqikm mammography of bilateral breastsDO Zafar Reyes Work Phone: Start: 77-89-0273Tpgdqrctls endoscopic examination on colonDO Zafar Reyes Work Phone: Start: 91-51-5750Gskfnqbkime of left breastDO Zafar Reyes Work Phone: Start: 55-30-9850Xneoedjkotecigy of left breastDO Zafar Reyes Work Phone: SARS Antigen (LFIA)DO Zafar Reyes Work Phone: Plan of Treatment DateCare ActivityDetailAuthorStart: 02-14-2026 End: 29-09-4737Cctllvw encounter procedureNOMS SWS DERMStart: 01-15-2026 End: 40-85-5072Uxiwquv encounter jdamnfgoj34/14/2026 9:30 AM EDT Office Visit [facility] [place] [facility] [address] [place] [phone] Maxim Hughes MD [address] [place] [address] [facility]RE[facility] Patrick EndocrinologyStart: 45-18-1459GZXKS-19 Vaccine ( season)COVID-19 Vaccine ( season)[facility] HealthcareStart: 07-30-2025 End: 34-39-1252AEB Skeletal system Views for bone densityDEXA bone density Imaging Routine Age-related osteoporosis without current pathological fracture Expected: 07/30/2025, Expires: 07/30/2026[facility] Work Phone: Comment on above:Expected: 07/30/2025, Expires: 07/30/2026Start: 07-17-2025 End: 075779-hezkeufwuxeenv D3 [Mass/volume] in Serum or PlasmaVitamin D 25 hydroxy Total Lab Routine Age-related osteoporosis without current pathological fracture Vitamin D deficiency Expected: 07/17/2025 (Approximate), Expires: 07/17/2026[facility] Healthcare Work Phone: Comment on above:Expected: 07/17/2025 (Approximate), Expires: 07/17/2026Start: 07-17-2025 End: 36-51-6118Qigcw function panelRenal function panel Lab Routine Age-related osteoporosis without current pathological fracture Expected: 07/17/2025 (Approximate), Expires: 07/17/2026[facility] HealthcareComment on above:Expected: 07/17/2025 (Approximate), Expires: 07/17/2026Start: 07-17-2025 End: 46-33-6340Sibkiyp encounter procedureNOCEDAR COUNTY [facility] ENDOCRINOLOGYComment on above: ArrivedStart: 12-53-2869Tancdznzs vaccinationInfluenza Vaccine (#1)[facility] HealthcareStart: 05-22-2025 End: 23-56-3802Qbqrjvh encounter eouitswwk60/19/2025 8:50 AM EDT Office Visit NOMDalia SWS DERM [address] [place] [phone] Anel Dove MD [address] [place] [address] NOMS SWS DERMStart: 54-93-5536Xyayrwsc identified in Urine by CultureUrine [facility] Hospitaltart: 04-19-2025 End: 05-10-1807Pufnltb encounter frbvbybwt74/17/2025 9:45 AM EDT Procedure Visit [facility] PODIATRY [address] [place] [address] Matthew Rock, DPM [address] [place] [address] NOMS SWS PODIATRYStart: 02-15-2025 End: 33-47-7631Wzxmfxo encounter qahvajabl14/15/2025 3:20 PM EDT Office Visit [facility]ER[facility] [address] [place] [address] Anel Dove MD [address] [place] [address] ArrivedNOMS SWS DERMComment on above:ArrivedStart: 02-13-2025 End: 78-06-9457Umsiqob encounter /13/2025 8:45 AM EDT Office Visit [facility] [address] [place] [address] Anel Dove MD [address] [place] [address] NOMS SWS DERMStart: 01-18-2025 End: 83-25-0061Oacugft encounter jramemjju61/17/2025 9:45 AM EDT Procedure Visit [facility] POD[facility]AT[facility] [address] [place] [address] Matthew Rock DPM [address] [place] [address] NOMS SWS PODIATRYStart: 01-16-2025 End: 08-35-621433310865-xbjgqveajyxphq D3 [Mass/volume] in Serum or PlasmaVitamin D 25 hydroxy Total Lab Routine Age-related osteoporosis without current pathological fracture ([facility]) Expected: 01/16/2025 (Approximate), Expires: 01/16/2026[facility] Work Phone: Comment on above:Expected: 01/16/2025 (Approximate), Expires: 01/16/2026Start: 01-16-2025 End: 31-67-9053Ksioa function panelRenal function panel Lab Routine Age-related osteoporosis without current pathological fracture ([facility]) Expected: 01/16/2025 (Approximate), Expires: 01/16/2026NOTN HealthcareComment on above: Expected: 01/16/2025 (Approximate), Expires: 01/16/2026Start: 01-16-2025 End: 58-50-3203Gcrkste encounter procedureNOCEDAR COUNTY MEM[facility]IAL [facility] ENDOCRINOLOGYComment on above: ArrivedStart: 10-24-2024 End: 06-56-9890Ebbukod encounter /21/2025 1:00 PM EST Procedure Visit [facility] [address] [place] [address] Matthew Rock, DPM [address] [place] [address] ArrivedNORIO HONDO [facility]OSPITAL PODIATRYComment on above:ArrivedStart: 09-07-2024 End: 86-78-6429Xtjbdui encounter rcauacrlk63/05/2024 3:45 PM EST Procedure Visit [facility] PODIATRY [address] [place] [address] Matthew Rock, DPM [address] [place] [address] [facility] PODIATRYStart: 07-18-2024 End: 425419-mgdvkmnhshlmlq D3 [Mass/volume] in Serum or PlasmaVitamin D 25 hydroxy Total Lab Routine Vitamin D deficiency Expected: 07/18/2024 (Approximate), Expires: 07/18/2025[facility] Work Phone: Comment on above:Expected: 07/18/2024 (Approximate), Expires: 07/18/2025Start: 07-18-2024 End: 05-85-1138Qrjpk function panelRenal function panel Lab Routine Age-related osteoporosis without current pathological fracture ([facility]) Expected: 07/18/2024 (Approximate), Expires: 07/18/2025NOMS HealthcareComment on above: Expected: 07/18/2024 (Approximate), Expires: 07/18/2025Start: 07-18-2024 End: 86-59-0687Xcxxmxi encounter procedureNOMS ENDOCRINOLOGYComment on above: ArrivedStart: 06-26-2024 End: 71-61-7780Omzurlu encounter tbcgfhfif50/23/2024 8:00 AM EDT Procedure Visit [facility] [address] [place] [address] Matthew Rock, DPM [address] [place] [address] ArrivedNOMS [facility] PODIATRYComment on above:ArrivedStart: 06-21-2024 End: 79-82-1327Alrjltt encounter /18/2024 8:00 AM EDT Procedure Visit [facility] [address] [place] [address] Matthew Rokc, DPM [address] [place] [address] [facility] SWS PODIATRYStart: 06-13-2024 End: 30-08-8340Ovvlbidxo73/10/2024 11:30 AM EDT Treatment [facility] PT [address] [place] [address] Magnolia Tillman, SIXTO Balance disorder (Primary Dx); CervicalgiaNOMS SWS PTComment on above:Balance disorder (Primary Dx); CervicalgiaStart: 06-08-2024 End: 83-80-6855uxfquullef01/05/2024 9:00 AM EDT Treatment [facility] PT [address] [place] [address] Magnolia Tillman PTANOMS SWS PTStart: 03-31-1949Uecwccfdo vaccinationInfluenza Vaccine (#1)[facility] Start: 05-30-2024 End: 72-57-3101zlkwtrjdjf79/27/2024 8:00 AM EDT Treatment [facility] PT [address] [place] [address] Magnolia Tillman, [employer] Arrived [facility] PTComment on above:ArrivedStart: 84-54-4863Zjqqmyp [facility] Work Phone: Start: 93-43-8153Chyrjdie identified in Urine by [facility] Hospitaltart: 08-86-8414ZmhgctdfiPike Community Hospitaltart: 83-45-5226ZGoO/Tdap/Td Vaccines (3 - Td or Tdap) DTaP/Tdap/Td Vaccines (3 - Td or Tdap)[facility] HealthcareStart: 45-09-8168Tzpsvefh identified in Urine by CultureKettering Health Pre[facility] Start: 72-71-7591RmrxgtufeRegional Medical Center Ctr Work Phone: Comprehensive metabolic 1999 panel - Serum or Plasma [facility]Com[facility] 1999 panel - Serum or [facility]Com[facility] 1999 panel - Serum or [facility] HospitalGlucose measurement estimated from glycated hemoglobinOhio Valley HospitalGlucose measurement estimated from glycated hemoglobinOhio Valley HospitalGlucose measurement estimated from glycated hemoglobinOhio Valley Hospital Hemoglobin A1c/Hemoglobin.total in [facility] Hemoglobin A1c/Hemoglobin.total in [facility] HospitalPatient EducationColon [facility] Work Phone: Patient [facility] Work Phone: Urine [facility] Immunizations Immunization DateImmunizationNotesCare BqjomvghUwtvdcpm42-50-6540KWUQV-57 (PFIZER) 12Y and olderDavid Saman DO Work Phone: [facility]09-30-2024influenza, high dose seasonal, preservative-freeDavid Saman DO Work Phone: [facility]09-30-2024influenza virus vaccine, unspecified formulationMaxim Hughes MD Work Phone: [facility] LouisTgnflvddfn06-51-7768XRD, recombinant, protein subunit RSVpreF, adjuvant reconstitu, 120mcg/0.5mL, PF (Arexvy)Maxim Hughes MD Work Phone: [facility] LouisCgynujxwxx78-24-8074QXHIF-19 (PFIZER) 12Y and olderDavid Saman DO Work Phone: [facility]09-19-2023Influenza, Seasonal, Quadrivalent, AdjuvantedAhmad Mirian RAM Work Phone: [facility] LouisLkkervcxim85-61-7787evcdfvemr virus vaccine, unspecified formulationConnie Layne [facility] HospitalXzywcxlkdl88-92-7072xeuckll and diphtheria toxoids, adsorbed, preservative free, for adult use (5 Lf of tetanus toxoid and 2 Lf of diphtheria toxoid)Zafar Reyes Other [facility]10-06-2022COVID-19 mRNA Bivalent Booster (Pfizer)Zafar Reyes DO Work Phone: [facility]10-06-2022Influenza, High-dose Seasonal, Quadrivalent, Preservative FreeMaxim Hughes MD Work Phone: [facility] LouisQoqpzutely82-18-8614STQPV-67 Comirnaty (Pfizer) Tri-Sucrose 12+Zafar Reyes DO Work Phone: [phone]05-31-2022COVID-19 mRNA, Comirnaty (Pfizer)DO Zafar Reyes Work Phone: [phone]10-07-2021COVID-19 Vaccine Pfizer - Documentation Purposes OnlyDavid Saman Other [address]09-15-2021Influenza, High-dose Seasonal, Quadrivalent, Preservative FreeAhmaedison Hughes MD Work Phone: noMiss[facility] Southern HealthcareNzkizysbya65-93-3261pwhiwzicp, seasonal, injectableDavid Saman Other [address]02-18-2021COVID-19 Vaccine Pfizer - Documentation Purposes OnlyDavid Saman Other [address]01-28-2021COVID-19 Vaccine Pfizer - Documentation Purposes OnlyDavid Saman Other [address]10-13-2020influenza, seasonal, injectableDavid Saman Other [address] [place], [place] [address]10-13-2020Seasonal trivalent influenza vaccine, adjuvanted, preservative freeDaviedison Reyes DO Work Phone: [phone]10-31-2019influenza, seasonal, injectableDavid Saman Other [address] [place], [place] [address]209-30-2016 pneumococcal conjugate vaccine, 13 valentDavid Saman Other [address] [place], [place] [address]209-30-2016influenza, seasonal, injectableDavid Saman Other [address] [place], [place] [address]11-24-2015influenza, injectable, quadrivalent, preservative freeAhmaedison Hughes MD Work Phone: noMiss[facility] Southern HealthcareTnircmekhe15-65-3853bcwvwjtrseiz polysaccharide vaccine, 23 valentDavid Saman Other [facility]11-27-2013tetanus and diphtheria toxoids, adsorbed, preservative free, for adult use (5 Lf of tetanus toxoid and 2 Lf of diphtheria toxoid)DO Zafar Reyes Work Phone: [facility]11-27-2013tetanus toxoid, reduced diphtheria toxoid, and acellular pertussis vaccine, adsorbed Zafar Reyes Other [facility] [employer] Other Payers DatePayer CategoryPayerPolicy [id number] [id number] MEDICARE ADVANTAGE [id number] 2022MedicareAETNA MEDICARE ADVANTAGE AETNA MEDICARE REPLACEMENT [id number] 2021-Present [address] [place] [id number] [id number] [id number] 20.1.297790.3.57[id number] 11.19.830.1.908597.3.57[id number] 2.16.840.1.576406.3.57[id number] 2.16840.1.727699.3.57[id number] 2.16840.1.835340.3.57[id number] 2.840.1.244875.3.57[id number] 2.16.840.1.835203.3.57[id number] 2.840.1.072595.3.57[id number] 2.840.1.687154.3.57[id number] 2.16840.1.21[id number] 2.16840.1.073640.3.579.2.531 [id number] 2.16840.1.79[id number] 2.840.1.2[id number] 2.840.1.413056.3.579.2.531 [id number] 2.16840.1.463[id number] 2.840.1.348528.3.579.2.531 Social History DateTypeDetailFacilityUnknown if ever smokedReDent Nova Other Start: 06-26-2024 End: [id number] [facility]Re[facility] Other Start: 05-22-2022 End: [id number] smoking status NHISEx-smoker (finding)[facility] End: 31-05-0359Amblckv of tobacco useCurrent smokerNOMS Healthcare End: 62-28-7013Ybuvgkf of tobacco useCigarette SmokerNOTN HealthcareStart: 05-13-2023 End: 52-87-4598Lnndnpz use and exposureSmokeless tobacco non-userNOMS Healthcare Start: 07-04-2024 End: 85-04-0751Urowydahx beverage intakeCurrent drinker of alcohol (finding)[facility] HealthcareStart: 07-04-2024 End: 14-39-5971Dgsnebyfc beverage intakeNOTN HealthcareStart: 65-94-7371Noybnld Commentcaffeine: 1-2 cups per dayNOMS HealthcareStart: 58-95-7997Qex assigned at birthNot on fileTHE [facility] HealthcareStart: 10-25-2024 End: 72-18-5153GbwCabbpl (finding)[facility] Hospitaltart: 35-37-0512HfrKtdhciPQNI Healthcare Goals DatePatient GoalDesired Activity/State Clinical Notes 09-21-2006 to 07-30-2025 Note Date & [id number] Telephone encounter Note* Telephone Encounter - Mikey Dilma - 07/30/2025 1:24 PM EDT Pt left message that she was supposed to have dexascan ordered and it is not in her chart. Could you please make order and I will send it to [facility]? Thank you! [facility] [id number] Miscellaneous Notes* Telephone Encounter - Mikey Dilma - 07/30/2025 1:24 PM EDT Pt left message that she was supposed to have dexascan ordered and it is not in her chart. Could you please make order and I will send it to [facility]? Thank you! documented in this [facility]10-14-2025 History of Present illness Narrative* Maxim Hughes MD - 07/17/2025 10:00 AM EDT Bibi Gordillo is a 84 y.o. female No ref. provider found presents with chief complaint of Osteoporosis and Follow-up (lab) HPI: Interim History: 07/2025 Follow-up visit 07/17/2025 first injection of prolia on 06/2021, due in 07/2025, lab on 07/2025 calcium 9 (8.6-10.3), vit d 35. Calcium was high on April/2025 10.9, she was on supplements, currently off and then back to normal. Interim History: 01/2025 Follow-up visit 01/16/2025 first injection of prolia on 06/2021, due in 01/2025, new lab calcium 9.2,vit d 45. Interim History: 07/2024 Follow-up visit 07/18/2024, first injection of prolia on 06/2021, due in 07/2024. Interim History: 2023 Follow-up visit 01/18/2024, first injection of prolia on 06/2021, due in 01/2024, no new lab, last DEXA ON 07/2023 L1-L4 0.954 -0.5, LFN 0.673 -1.6, RFN 0.658 - 1.7 impoved from 2020. Interim History: 2022 Follow-up visit 12/08/2022, first injection of prolia on 06/2021, due in 07/2023. Interim History: 2021 Follow-up visit 06/18/2022, got 2 injection of prolia so far , will send her to infusion center Interim History: 2020 Follow-up visit 06/12/2021 She is here for first injection of Prolia. Labs done: GFR 49, she is not aware about totally; 24 hour urine sodium 29; 24 hour creatinine 847; vitamin D 43; 24 hour urine calcium 42 (100-300); NTx within normal limits. No mouth pain. No jaw pain. No dental procedures in the next month. HPI: 05/2021 New patient sent from Dr. Zafar Reyes for evaluation of osteopenia. She had multiple DEXA scans [id number], 2013, 2015 and the last one 2020. The last numbers: L1-L4 0.982 -0.5; left femoral neck 0.620-2.1; right femoral neck 0.610 -2.2; I calculate her FRAX as 23% major fracture and 9.7% hip fracture. She was only treated with Reclast for three years, almost three years ago. Off since that time. She has fracture in her right wrist due to fall in the shower a long time ago. Denies kidney stone. She is on calcium and vitamin D gummy once or twice daily, she does not remember exactly the dose. SUBJECTIVE: MEDICATIONS: Current Outpatient Medications Medication Instructions Ascorbic Acid (vitamin C) 100 MG tablet 1 tablet, Daily atorvastatin (Lipitor) 10 MG tablet Every 24 hours Cyanocobalamin 5000 MCG capsule 1 capsule, Daily lisinopril 10 MG tablet Prolia 60 mg, Once sertraline (Zoloft) 50 MG tablet Every 24 hours tolnaftate (Tinactin) 1 % external solution 1 application , 2 times daily ALLERGIES: Allergies Allergen Reactions Acetaminophen Other Reaction(s): Unknown Clavulanic Acid Other Reaction(s): rash on abdomen Hydrocodone Other Reaction(s): Unknown Lansoprazole Other Reaction(s): Unknown Lidocaine Other Reaction(s): eye's swelled shut Latex Rash Penicillins Rash Other Reaction(s): rash on abdomen Past Medical History: Diagnosis Date Basal cell carcinoma Chickenpox Eroded bladder suspension mesh Fibroid HLD (hyperlipidemia) Hypertension IBS (irritable bowel syndrome) Kidney function abnormal Osteoporosis Vitamin D deficiency Past Surgical History: Procedure Laterality Date BASAL CELL CARCINOMA EXCISION 02/04/2011 ECHOCARDIOGRAM 09/21/2006 OR NIPPLE EXPLORATION Left 2011 TOTAL ABDOMINAL HYSTERECTOMY W/ BILATERAL SALPINGOOPHORECTOMY WRIST SURGERY Right 2009 REVIEW OF SYMPTOMS: 14 POINT OF SYSTEM REVIEWED AND NEGATIVE OBJECTIVE: 11/02/2022 12:00 PM 12/08/2023 9:32 AM 01/18/2024 10:41 AM 03/09/2024 9:32 AM 07/18/2024 10:55 AM 01/16/2025 9:56 AM 07/17/2025 9:54 AM Vitals BMI 24.14 kg/m2 25.61 kg/m2 24.14 kg/m2 24.87 kg/m2 24.51 kg/m2 BSA (m2) 1.62 m2 1.67 m2 1.62 m2 1.64 m2 1.63 m2 Systolic 144 160 127 144 140 124 Diastolic 73 68 65 74 80 76 Heart Rate 88 65 69 78 81 84 SpO2 98 % 99 % 97 % Temp 96.7 F 97.9 F Resp 16 18 18 18 Height (in) 5' 2 5' 2 5' 2 5' 2 5' 2 Weight (lb) 140 132 136 134 Visit Report Report Report Report Report Physical Exam Constitutional: Appearance: Normal appearance. She is normal weight. HENT: Head: Normocephalic and atraumatic. Right Ear: External ear normal. Nose: Nose normal. Mouth/Throat: Pharynx: Oropharynx is clear. Eyes: Extraocular Movements: Extraocular movements intact. Pupils: Pupils are equal, round, and reactive to light. Cardiovascular: Rate and Rhythm: Normal rate and regular rhythm. Pulmonary: Effort: Pulmonary effort is normal. Abdominal: General: Abdomen is flat. Palpations: Abdomen is soft. Musculoskeletal: General: Normal range of motion. Skin: General: Skin is warm. Neurological: General: No focal deficit present. Mental Status: She is alert. Psychiatric: Mood and Affect: Mood normal. Behavior: Behavior normal. ASSESSMENT AND PLAN: Assessment/Plan Diagnoses and all orders for this visit: Age-related osteoporosis without current pathological fracture - Vitamin D 25 hydroxy Total; Future - Renal function panel; Future Continue with prolia every 6 months, due in 07/2025. Vitamin D deficiency - Vitamin D 25 hydroxy Total; Future Level 35 continue supplements Follow up in about 6 months (around 01/15/2026). documented in this encounterThe [facility] Institute of St. [id number] Evaluation note* Author Zafar Reyes [facility] 2024 11:34amThe above note written by ___Bin Bryant____ acting as human recorder, note dictated by Dr. Andrade .I performed the above HPI, ROS, and Examination. I formulated and dictated the treatment plan and was present for entire encounter. Zafar Reyes D.O. [facility] Work Phone: [phone]) 700-508105-15-2025 History of Present illness Narrative* Anel Dove MD - 02/15/2025 3:20 PM EDT Skin Check Location: Patient requests a full body skin examination Dermatologic history: history of Actinic Keratosis, history of Basal Cell Carcinoma Last visit: 05/2025 Lesions: Location: forehead Duration: few weeks Quality: denies pain, denies itch, denies bleeding Associated symptoms: red, rough Treatments: none Established patient All pertinent medical history, medications, and allergies were reviewed. General Exam: alert, oriented to person, place, and time, normal affect, well appearing Unaccompanied Scalp, Examined , exam limited by hair Right leg Examined Head, Face Examined Left leg Examined Neck Examined Right foot Examined Chest Examined Left foot Examined Back Examined Buttocks Examined Abdomen Examined Digits,nails: Examined Right arm Examined Patient wearing nail ivorian, Denies dark streaks under finger nails, Denies darkstreaks on toenails Left arm Examined Lymphatics: Not examined Hands Examined Skin Exam 1. SEBORRHEIC KERATOSIS Right Forehead Stuck on verrucous, rivera-brown papules and plaques. Patient was counseled regarding these benign growths. Removal is normally not necessary, but they may be removed if they are symptomatic or for cosmetic reasons. 2. ACTINIC KERATOSIS Mid Forehead Erythematous scaly papules Patient was counseled regarding these sun-induced growths that can develop into squamous cell carcinoma if left untreated. Discussed treatment with cryotherapy. It was emphasized that any treated lesions that fail to resolve should be re- evaluated. Cryotherapy performed today; see procedure note Diagnosis: Actinic keratosis Indication: Precancerous Location: see skin exam Consent: Verbal consent was obtained and risks were discussed, including, but not limited to risks of scarring, darker or hvac sales representative pigmentary changes, recurrence, incomplete removal and infection. Method: Liquid nitrogen was used to treat the lesion(s) with two 5-10 second freeze-thaw cycles. Number of lesions treated: 1 Post-procedure instructions: Instructions were given orally and in writing. The office will be contacted if the lesion fails to resolve despite treatment, or if a side effect develops such as abnormal crusting, scabbing, redness or tenderness Cryotherapy, skin lesion - Mid Forehead 3. LENTIGINES Generalized Scattered rivera macules in sun-exposed areas. The patient was informed that lentigines are benign pigmented lesions that occur on sun-exposed andsun-damaged skin. No treatment is necessary. Recommended regular use of broad spectrum sunscreen SPF 30 or higher 4. CAPILLARY ANGIOMA Torso - Posterior (Back) Scattered gonzáles-red papule(s). The patient was informed that angiomas are benign growths on the the skin. No treatment is necessary. 5. HISTORY OF BASAL CELL CARCINOMA Unspecified The patient was counseled that scars from excisional sites of nonmelanoma skin cancers should be monitored closely for recurrence. The patient was instructed to contact the office for any new, changing, or symptomatic moles. The patient was also instructed to contact the office for any new lesions that develop within or around the previous surgery scar. Next Visit: 1 year documented in this encounterThe [facility] Institute of St. [id number] History of Present illness Narrative* Matthew Rock DPM - 01/18/2025 9:45 AM EDT Images from the original note were not included. Reason for Visit: Established Patient: Recheck Onychomycosis/Nailcare HPI Established patient presents for follow up examination of onychomycosis and debridement of elongated, mycotic toenails. Patient has no pain to the toenails. Patient is applying Tolcylen to toenails once a day. PCP: Dr. Zafar Reyes Date Last seen: 10/28 Review of Systems General: Chills denies. Fatigue denies. Fever denies. Night sweats denies. Endocrine: Diabetes denies. Hyperpigmentation denies. Weakness denies. Cardiovascular: Chest pain denies. Shortness of breath denies. Gastrointestinal: Constipation denies. Diarrhea denies. Nausea denies. Vomiting denies. Hematology: Anemia denies. Bleeding problems denies. Easy bruising denies. Musculoskeletal: Bone/joint symptoms denies. Leg cramps denies. Peripheral Vascular: Edema denies. Raynaud's denies. Rest pain denies. Varicose veins denies. Skin: Nail changes denies. Rash denies. Skin lesion(s) denies. Ulceration admits. Neurologic: Dizziness denies. Gait abnormality denies. Headache denies. Tingling/Numbness denies. Examination General Examination: GENERAL EXAMINATION: awake, aware of surroundings, in no acute distress. Vascular: DORSALIS PEDIS PULSE: palpable bilateral. POSTERIOR TIBIAL PULSE: palpable bilateral. TEMPERATURE GRADIENT: warm to cool. EDEMA: none. CAPILLARY FILLING TIME(sec): less than 2 seconds bilateral. Ankle / Foot: MUSCLE STRENGTH: 5/5 to the major muscle groups. Neurologic: NEUROLOGIC: normal. Dermatologic: SKIN FINDINGS: Skin is thin, shiny, atrophic and dry with absent pedal hair to the bilateral lower extremity. NAIL PATHOLOGY: Intact toenails to 1-5 bilaterally. Orthopedic: JOINT RANGE OF MOTION: normal. SHOE GEAR EVALUATION: athletic shoes bilateral foot. Right toenails: 1 (great toe) Non-dystrophic. 2 Non-dystrophic. 3 Non-dystrophic. 4 Non-dystrophic. 5 Non-dystrophic. Left toenails: 1 (great toe) Long, Thick, Crumbly, Deformed, Discolored, Brittle, Dystrophic. 2 Long, Thick, Crumbly, Deformed, Discolored, Brittle, Dystrophic: Significantly improved 3 Long, Thick, Crumbly, Deformed, Discolored, Brittle, Dystrophic: Significantly improved 4 Long, Thick, Crumbly, Deformed, Discolored, Brittle, Dystrophic: Significantly improved. 5Long, Thick, Crumbly, Deformed, Discolored, Brittle, Dystrophic: Significantly improved. Assessments B35.1 - Onychomycosis -elongated mycotic toenails left 1, 2, 3, 4, 5 Elongated non dystrophic toenails: right: 1-5 Plan Onychomycosis 1. Patient seen today for follow up examination. 2. Patient was advised about diagnosis, etiology, treatment, and preventative measures regarding onychomycoses. We discussed conservative treatment options. 3. Patient was also informed that topical antifungal nail solution/treatment should be maintained topically until full nail resolution of onychomycoses. 4. Patient was advised also for the need for manual onychoreduction in terms of length and thickness to assist with successful treatment. No guarantees were given or implied about timetable or success. Patient voiced understanding. 5. I debrided elongated, onychomycotic toenails 1-5 left via manual and mechanical means. 6. Patient should wash and dry bilateral foot twice a day and apply topical Tolcylen twice a day toall ten toenails until full resolution of onychomycosis. 7. Patient was advised to continue: Nystatin Powder to apply twice a day to bilateral foot web spaces, post bathing, to assist with moisture and fungal reduction and prevention. 8. Reappoint: 10-12 weeks. Elongated non dystrophic toenails/nail deformity 1. Patient was seen today for follow up examination. 2. I perform manual and mechanical debridement of elongated non dystrophic toenails: right: 1-5. 3. Reappoint: 10-12 weeks. documented in this [facility]04-15-2025 History of Present illness Narrative* Maxim Hughes MD - 01/16/2025 10:00 AM EDT Bibi Gordillo is a 84 y.o. female No ref. provider found presents with chief complaint of Osteoporosis and Follow-up (LAB) HPI: Interim History: 01/2025 Follow-up visit 01/16/2025 first injection of prolia on 06/2021, due in 01/2025, new lab calcium 9.2,vit d 45. Interim History: 07/2024 Follow-up visit 07/18/2024, first injection of prolia on 06/2021, due in 07/2024. Interim History: 2023 Follow-up visit 01/18/2024, first injection of prolia on 06/2021, due in 01/2024, no new lab, last DEXA ON 07/2023 L1-L4 0.954 -0.5, LFN 0.673 -1.6, RFN 0.658 - 1.7 impoved from 2020. Interim History: 2022 Follow-up visit 12/08/2022, first injection of prolia on 06/2021, due in 07/2023. Interim History: 2021 Follow-up visit 06/18/2022, got 2 injection of prolia so far , will send her to infusion center Interim History: 2020 Follow-up visit 06/12/2021 She is here for first injection of Prolia. Labs done: GFR 49, she is not aware about totally; 24 hour urine sodium 29; 24 hour creatinine 847; vitamin D 43; 24 hour urine calcium 42 (100-300); NTx within normal limits. No mouth pain. No jaw pain. No dental procedures in the next month. HPI: 05/2021 New patient sent from Dr. Zafar Reyes for evaluation of osteopenia. She had multiple DEXA scans [id number], 2013, 2015 and the last one 2020. The last numbers: L1-L4 0.982 -0.5; left femoral neck 0.620-2.1; right femoral neck 0.610 -2.2; I calculate her FRAX as 23% major fracture and 9.7% hip fracture. She was only treated with Reclast for three years, almost three years ago. Off since that time. She has fracture in her right wrist due to fall in the shower a long time ago. Denies kidney stone. She is on calcium and vitamin D gummy once or twice daily, she does not remember exactly the dose. SUBJECTIVE: MEDICATIONS: Current Outpatient Medications Medication Instructions Ascorbic Acid (vitamin C) 100 MG tablet 1 tablet, Daily atorvastatin (Lipitor) 10 MG tablet Every 24 hours Cyanocobalamin 5000 MCG capsule 1 capsule, Daily lisinopril 10 MG tablet Prolia 60 mg, Once sertraline (Zoloft) 50 MG tablet Every 24 hours tolnaftate (Tinactin) 1 % external solution 1 application , 2 times daily ALLERGIES: Allergies Allergen Reactions Acetaminophen Other Reaction(s): Unknown Clavulanic Acid Other Reaction(s): rash on abdomen Hydrocodone Other Reaction(s): Unknown Lansoprazole Other Reaction(s): Unknown Lidocaine Other Reaction(s): eye's swelled shut Latex Rash Penicillins Rash Other Reaction(s): rash on abdomen Past Medical History: Diagnosis Date Basal cell carcinoma Chickenpox Eroded bladder suspension mesh (CMS/HCC) Fibroid HLD (hyperlipidemia) (CMS/HCC) Hypertension (CMS/HCC) IBS (irritable bowel syndrome) Kidney function abnormal Osteoporosis (CMS/HCC) Vitamin D deficiency Past Surgical History: Procedure Laterality Date BASAL CELL CARCINOMA EXCISION 02/04/2011 ECHOCARDIOGRAM 09/21/2006 OR NIPPLE EXPLORATION Left 2011 TOTAL ABDOMINAL HYSTERECTOMY W/ BILATERAL SALPINGOOPHORECTOMY WRIST SURGERY Right 2010 REVIEW OF SYMPTOMS: 14 POINT OF SYSTEM REVIEWED AND NEGATIVE OBJECTIVE: 10/19/2022 12:00 PM 11/02/2022 12:00 PM 12/08/2023 9:32 AM 01/18/2024 10:41 AM 03/09/2024 9:32 AM 07/18/2024 10:55 AM 01/16/2025 9:56 AM Vitals BMI 24.14 kg/m2 24.14 kg/m2 25.61 kg/m2 24.14 kg/m2 24.87 kg/m2 BSA (m2) 1.62 m2 1.62 m2 1.67 m2 1.62 m2 1.64 m2 Systolic 144 160 127 144 140 Diastolic 73 68 65 74 80 Heart Rate 88 65 69 78 81 SpO2 98 % 99 % Temp 96.7 F 97.9 F Resp 16 18 18 Height (in) 5' 2 5' 2 5' 2 5' 2 5' 2 Weight (lb) 140 132 136 Visit Report Report Report Report Physical Exam Constitutional: Appearance: Normal appearance. She is normal weight. HENT: Head: Normocephalic and atraumatic. Right Ear: External ear normal. Nose: Nose normal. Mouth/Throat: Pharynx: Oropharynx is clear. Eyes: Extraocular Movements: Extraocular movements intact. Pupils: Pupils are equal, round, and reactive to light. Cardiovascular: Rate and Rhythm: Normal rate and regular rhythm. Pulmonary: Effort: Pulmonary effort is normal. Abdominal: General: Abdomen is flat. Palpations: Abdomen is soft. Musculoskeletal: General: Normal range of motion. Skin: General: Skin is warm. Neurological: General: No focal deficit present. Mental Status: She is alert. Psychiatric: Mood and Affect: Mood normal. Behavior: Behavior normal. ASSESSMENT AND PLAN: Assessment/Plan Diagnoses and all orders for this visit: Age-related osteoporosis without current pathological fracture (CMS/HCC) - Vitamin D 25 hydroxy Total; Future - Renal function panel; Future C/o Prolia 6 months Vitamin D deficiency Level 45 within normal limits continue with supplement Follow up in about 6 months (around 07/18/2025). documented in this encounterThe [facility] Institute of St. [id number] Evaluation note* Diagnosis Onset Date Resolution Status Admit Date Diarrhea acuteJanuary 2024 1:14pmIntermittent abdominal painacuteJanuary 2024 1:14pmIrritable bowel syndrome with diarrheaacuteJanuary 2024 1:14pm Microscopic colitisacuteJanuary 2024 1:14pm [facility] Work Phone: 1(201) 683-925501-22-2025 Evaluation note* Diagnosis Onset Date Resolution Status Admit Date Diarrhea acuteJanuary 2024 1:14pmIntermittent abdominal painacuteJanuary 2024 1:14pmIrritable bowel syndrome with diarrheaacuteJanuary 2024 1:14pm Microscopic colitisacuteJanuary 2024 1:14pmHyperglycemiaacuteJanuary 2024 9:03amHyperlipidemiaacuteJanuary 2024 9:03amHypertensionacuteJanuary 2024 9:03amIrritable bowel syndrome with diarrheaacuteJanuary 2024 9:03amVitamin B12 deficiencyacuteJanuary 2024 9:03amVitamin D deficiency acuteJanuary 2024 9:03am [facility] Work Phone: 1(687) 958-639201-21-2025 History of Present illness Narrative* Matthew Rock, SERENE - 10/24/2024 1:00 PM EST Images from the original note were not included. Reason for Visit: Established Patient: Recheck Onychomycosis/Nailcare HPI Established patient presents for follow up examination of onychomycosis and debridement of elongated, mycotic toenails. Patient has no pain to the toenails. Patient is applying Tolcylen to toenails once a day. Patient completed Lamisil. PCP: Dr. Zafar Reyes Date Last seen: 04/27/24 Review of Systems General: Chills denies. Fatigue denies. Fever denies. Night sweats denies. Endocrine: Diabetes denies. Hyperpigmentation denies. Weakness denies. Cardiovascular: Chest pain denies. Shortness of breath denies. Gastrointestinal: Constipation denies. Diarrhea denies. Nausea denies. Vomiting denies. Hematology: Anemia denies. Bleeding problems denies. Easy bruising denies. Musculoskeletal: Bone/joint symptoms denies. Leg cramps denies. Peripheral Vascular: Edema denies. Raynaud's denies. Rest pain denies. Varicose veins denies. Skin: Nail changes denies. Rash denies. Skin lesion(s) denies. Ulceration admits. Neurologic: Dizziness denies. Gait abnormality denies. Headache denies. Tingling/Numbness denies. Examination General Examination: GENERAL EXAMINATION: awake, aware of surroundings, in no acute distress. Vascular: DORSALIS PEDIS PULSE: palpable bilateral. POSTERIOR TIBIAL PULSE: palpable bilateral. TEMPERATURE GRADIENT: warm to cool. EDEMA: none. CAPILLARY FILLING TIME(sec): less than 2 seconds bilateral. Ankle / Foot: MUSCLE STRENGTH: 5/5 to the major muscle groups. Neurologic: NEUROLOGIC: normal. Dermatologic: SKIN FINDINGS: Skin is thin, shiny, atrophic and dry with absent pedal hair to the bilateral lower extremity. NAIL PATHOLOGY: Intact toenails to 1-5 bilaterally. Orthopedic: JOINT RANGE OF MOTION: normal. SHOE GEAR EVALUATION: athletic shoes bilateral foot. Right toenails: 1 (great toe) Non-dystrophic. 2 Non-dystrophic. 3 Non-dystrophic. 4 Non-dystrophic. 5 Non-dystrophic. Left toenails: 1 (great toe) Non-dystrophic. 2 Long, Thick, Crumbly, Deformed, Discolored, Brittle, Dystrophic. 3 Long, Thick, Crumbly, Deformed, Discolored, Brittle, Dystrophic. 4 Long, Thick, Crumbly, Deformed, Discolored, Brittle, Dystrophic. 5Long, Thick, Crumbly, Deformed, Discolored, Brittle, Dystrophic. Assessments B35.1 - Onychomycosis -elongated mycotic toenails left 2, 3, 4, 5 Elongated non dystrophic toenails left: 1, right: 1-5 Plan Onychomycosis 1. Patient seen today for follow up examination. 2. Patient was advised about diagnosis, etiology, treatment, and preventative measures regarding onychomycoses. We discussed conservative treatment options. 3. Patient was also informed that topical antifungal nail solution/treatment should be maintained topically until full nail resolution of onychomycoses. 4. Patient was advised also for the need for manual onychoreduction in terms of length and thickness to assist with successful treatment. No guarantees were given or implied about timetable or success. Patient voiced understanding. 5. I debrided elongated, onychomycotic toenails 2-5 left via manual and mechanical means. 6. Patient should wash and dry bilateral foot twice a day and apply topical Tolcylen twice a day toall ten toenails until full resolution of onychomycosis. 7. Patient was advised to continue: Nystatin Powder to apply twice a day to bilateral foot web spaces, post bathing, to assist with moisture and fungal reduction and prevention. 8. Reappoint: 10-12 weeks. Elongated non dystrophic toenails/nail deformity 1. Patient was seen today for follow up examination. 2. I perform manual and mechanical debridement of elongated non dystrophic toenails left: 1 and right colon 1-5. 3. Reappoint: 10-12 weeks. documented in this [facility]10-15-2024 History of Present illness Narrative* Maxim Hughes MD - 07/18/2024 11:00 AM EDT Bibi Gordillo is a 83 y.o. female No ref. provider found presents with chief complaint of Osteoporosis and Follow-up HPI: Interim History: 07/2024 Follow-up visit 07/18/2024, first injection of prolia on 06/2021, due in 07/2024. Interim History: 2023 Follow-up visit 01/18/2024, first injection of prolia on 06/2021, due in 01/2024, no new lab, last DEXA ON 07/2023 L1-L4 0.954 -0.5, LFN 0.673 -1.6, RFN 0.658 - 1.7 impoved from 2020. Interim History: 2022 Follow-up visit 12/08/2022, first injection of prolia on 06/2021, due in 07/2023. Interim History: 2021 Follow-up visit 06/18/2022, got 2 injection of prolia so far , will send her to infusion center Interim History: 2020 Follow-up visit 06/12/2021 She is here for first injection of Prolia. Labs done: GFR 49, she is not aware about totally; 24 hour urine sodium 29; 24 hour creatinine 847; vitamin D 43; 24 hour urine calcium 42 (100-300); NTx within normal limits. No mouth pain. No jaw pain. No dental procedures in the next month. HPI: 05/2021 New patient sent from Dr. Zafar Reyes for evaluation of osteopenia. She had multiple DEXA scans [id number], 2013, 2015 and the last one 2020. The last numbers: L1-L4 0.982 -0.5; left femoral neck 0.620-2.1; right femoral neck 0.610 -2.2; I calculate her FRAX as 23% major fracture and 9.7% hip fracture. She was only treated with Reclast for three years, almost three years ago. Off since that time. She has fracture in her right wrist due to fall in the shower a long time ago. Denies kidney stone. She is on calcium and vitamin D gummy once or twice daily, she does not remember exactly the dose. SUBJECTIVE: MEDICATIONS: Current Outpatient Medications Medication Instructions Ascorbic Acid (vitamin C) 100 MG tablet 1 tablet, Daily atorvastatin (Lipitor) 10 MG tablet Every 24 hours Cyanocobalamin 5000 MCG capsule 1 capsule, Daily lisinopril 10 MG tablet Prolia 60 mg, Once sertraline (Zoloft) 50 MG tablet Every 24 hours tolnaftate (Tinactin) 1 % external solution 1 application , 2 times daily ALLERGIES: Allergies Allergen Reactions Acetaminophen Other Reaction(s): Unknown Clavulanic Acid Other Reaction(s): rash on abdomen Hydrocodone Other Reaction(s): Unknown Lansoprazole Other Reaction(s): Unknown Lidocaine Other Reaction(s): eye's swelled shut Latex Rash Penicillins Rash Other Reaction(s): rash on abdomen Past Medical History: Diagnosis Date Basal cell carcinoma Chickenpox Eroded bladder suspension mesh (CMS/HCC) Fibroid HLD (hyperlipidemia) (CMS/HCC) Hypertension (CMS/HCC) IBS (irritable bowel syndrome) Kidney function abnormal Osteoporosis (CMS/HCC) Vitamin D deficiency Past Surgical History: Procedure Laterality Date BASAL CELL CARCINOMA EXCISION 02/04/2011 ECHOCARDIOGRAM 09/21/2006 OR NIPPLE EXPLORATION Left 2012 TOTAL ABDOMINAL HYSTERECTOMY W/ BILATERAL SALPINGOOPHORECTOMY WRIST SURGERY Right 2010 REVIEW OF SYMPTOMS: 14 POINT OF SYSTEM REVIEWED AND NEGATIVE OBJECTIVE: Visit Vitals BP 144/74 Pulse 78 Resp 18 Ht 5' 2 Wt 132 lb BMI 24.14 kg/m Smoking Status Former BSA 1.62 m Physical Exam Constitutional: Appearance: Normal appearance. She is normal weight. HENT: Head: Normocephalic and atraumatic. Right Ear: External ear normal. Nose: Nose normal. Mouth/Throat: Pharynx: Oropharynx is clear. Eyes: Extraocular Movements: Extraocular movements intact. Pupils: Pupils are equal, round, and reactive to light. Cardiovascular: Rate and Rhythm: Normal rate and regular rhythm. Pulmonary: Effort: Pulmonary effort is normal. Abdominal: General: Abdomen is flat. Palpations: Abdomen is soft. Musculoskeletal: General: Normal range of motion. Skin: General: Skin is warm. Neurological: General: No focal deficit present. Mental Status: She is alert. Psychiatric: Mood and Affect: Mood normal. Behavior: Behavior normal. ASSESSMENT AND PLAN: Assessment/Plan Diagnoses and all orders for this visit: Age-related osteoporosis without current pathological fracture (CMS/HCC) - Renal function panel; Future We will continue with Prolia every 6 months, we will check calcium vitamin-D now Vitamin D deficiency - Vitamin D 25 hydroxy Total; Future Follow up in about 6 months (around 01/16/2025). documented in this encounterThe [facility] Institute of St. [id number] History of Present illness Narrative* Matthew Rock, SERENE - 06/26/2024 8:00 AM EDT Images from the original note were not included. Reason for Visit: Established Patient: Recheck Onychomycosis/Nailcare HPI Established patient presents for follow up examination of onychomycosis and debridement of elongated, mycotic toenails. Patient has no pain to the toenails. Patient is applying Tolcylen to toenails once a day. Patient completed Lamisil. Side bilateral Location: toes 1-5 Status: unchanged Onset: 1 year ago Pain present: no Risk factors: none PCP: Dr. Zafar Reyes Date Last seen: 05/27 Previous Treatment: OTC topicals Review of Systems General: Chills denies. Fatigue denies. Fever denies. Night sweats denies. Endocrine: Diabetes denies. Hyperpigmentation denies. Weakness denies. Cardiovascular: Chest pain denies. Shortness of breath denies. Gastrointestinal: Constipation denies. Diarrhea denies. Nausea denies. Vomiting denies. Hematology: Anemia denies. Bleeding problems denies. Easy bruising denies. Musculoskeletal: Bone/joint symptoms denies. Leg cramps denies. Peripheral Vascular: Edema denies. Raynaud's denies. Rest pain denies. Varicose veins denies. Skin: Nail changes denies. Rash denies. Skin lesion(s) denies. Ulceration admits. Neurologic: Dizziness denies. Gait abnormality denies. Headache denies. Tingling/Numbness denies. Examination General Examination: GENERAL EXAMINATION: awake, aware of surroundings, in no acute distress. Vascular: DORSALIS PEDIS PULSE: palpable bilateral. POSTERIOR TIBIAL PULSE: palpable bilateral. TEMPERATURE GRADIENT: warm to cool. EDEMA: none. CAPILLARY FILLING TIME(sec): less than 2 seconds bilateral. Ankle / Foot: MUSCLE STRENGTH: 5/5 to the major muscle groups. Neurologic: NEUROLOGIC: normal. Dermatologic: SKIN FINDINGS: Skin is thin, shiny, atrophic and dry with absent pedal hair to the bilateral lower extremity. NAIL PATHOLOGY: Intact toenails to 1-5 bilaterally. Orthopedic: JOINT RANGE OF MOTION: normal. SHOE GEAR EVALUATION: athletic shoes bilateral foot. Right toenails: 1 (great toe) Non-dystrophic. 2 Non-dystrophic. 3 Non-dystrophic. 4 Non-dystrophic. 5 Non-dystrophic. Left toenails: 1 (great toe) Non-dystrophic. 2 Long, Thick, Crumbly, Deformed, Discolored, Brittle, Dystrophic. 3 Long, Thick, Crumbly, Deformed, Discolored, Brittle, Dystrophic. 4 Long, Thick, Crumbly, Deformed, Discolored, Brittle, Dystrophic. 5Long, Thick, Crumbly, Deformed, Discolored, Brittle, Dystrophic. Assessments B35.1 - Onychomycosis -elongated mycotic toenails left 2, 3, 4, 5 Plan 1. Patient seen today for new examination. 2. Patient was advised about diagnosis, etiology, treatment, and preventative measures regarding onychomycoses. We discussed conservative treatment options. 3. Patient was also informed that topical antifungal nail solution/treatment should be maintained topically until full nail resolution of onychomycoses. 4. Patient was advised also for the need for manual onychoreduction in terms of length and thickness to assist with successful treatment. No guarantees were given or implied about timetable or success. Patient voiced understanding. 5. I debrided elongated, onychomycotic toenails 2-5 left via manual and mechanical means. 6. Patient should wash and dry bilateral foot twice a day and apply topical Tolcylen twice a day toall ten toenails until full resolution of onychomycosis. 7. Patient was advised to continue: Nystatin Powder to apply twice a day to bilateral foot web spaces, post bathing, to assist with moisture and fungal reduction and prevention. 8. Reappoint: 10-12 weeks. documented in this encounterThe Rehabilitation Institute of St. [id number] Evaluation note* Author Zafar Reyes [facility] HospitalAuthoredJuly 2023 10:28amThe above note written by ___Bin Bryant____ acting as human recorder, note dictated by Dr. Andrade .I performed the above HPI, ROS, and Examination. I formulated and dictated the treatment plan and was present for entire encounter. Zafar Reyes D.O. [facility] Work Phone: [phone] Evaluation note* Encounter Date Diagnosis Assessment Notes Treatment Notes Treatment Clinical Notes Oct, Hypertension (ICD-10 - I10) Her blood pressure is elevated today at 148/84. She voices that her blood pressure is never good when she comes to the office. She does not have access to a blood pressure machine at home. I did recommend that she monitor her blood pressure on her own and call me with a few different readings. She will do this and call with readings before we increase her dose of medication. She admits she gets nervous around people so it was recommended she consider buying herself an Omron blood pressure cuff and begin checking her blood pressure when she is in the comfort of her own home. Oct,Hyperlipidemia (ICD-10 - E78.5)Discussed cholesterol results with patient today. Total is 267. HDL is 108. LDL is 146. Triglycerides are 65. VLDL is 13. She is encouraged to continue to monitor her intake of carbs and sugars. Stayactive. Continue with the same dose of Atorvastatin. Oct,Vitamin D deficiency (ICD-10 - E55.9)We discussed vitamins today and what supplements she would benefit from. I did give recommendationson what Vitamin D supplementation she should take. Her Vitamin D level is 29.7. Oct,Hyperglycemia (ICD-10 - R73.9)Discussed blood sugar results with patient today. Glucose is 115. HgA1C is 5.6. I did recommend that she continue to monitor her intake of carbs and sugars. Stay active. Oct,epression (ICD-10 - F32.9)Continue with above medication daily as directed. Oct,Weight gain (ICD-10 - R63.5)She has gained four pounds since last seen. Oct,Lymphocytic colitis (ICD-10 - K52.89)Continue with above medication daily as directed. Oct,Vitamin B12 deficiency (ICD-10 - E53.8)Again, we discussed vitamins today and I did recommend what type of B12 vitamin she should take. She is currently taking a dissolvable B12 and can continue to take this version of B12. Her B12 level is 930. Folate is 11.7. At this time I did recommend that she decrease her B12 to taking it Wednesday through Wednesday and take the weekends off. 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 Hughes for this.She is getting Prolia injections and has another one scheduled for January (2023). I did recommend that she take a Calcium tablet, guidance was given on what type of Calcium chewable (600 MG) to take. She can buy this OTC. [employer] Other 08-01-2023 Evaluation note* Encounter Date Diagnosis Assessment Notes Treatment Notes Treatment Clinical Notes May, Skin tear of right f orearm without complication, initial encounter (ICD-10 - S51.811A) Small piece of adhered gauze able to be removed. Patient tolerated well. Wound recleaned. Wound dressed in office. Patient is advised to keep area clean with soap and water. May apply topical antibiotic ointment. May cover with Telfa nonadherent dressing and Coban for the next 2 to 4 days, after that should be healing over and may leave open to air. No signs of secondary infection currently. Patient is advised to follow-up with PCP if any further concerns with healing. Patient verbalized understanding treatment plan. [employer] Other 01-05-2023 Evaluation note* Encounter Date Diagnosis Assessment Notes Treatment Notes Treatment Clinical Notes Oct, Hypertension (ICD-10 - I10) Her blood pressure is elevated today at 156/92. She had [facility] screening done and her blood pressure there was elevated as well. She voices that it is usually her systolic reading that is elevated.I did recheck her blood pressure myself and got a reading of 138/88 which is much better than the previous reading. She voices that she gets nervous coming to her appointments. I did recommend that e periodically monitor her blood pressure, if she finds that her readings are consistently elevatedthen she should let me know and we will discuss adjusting her medication. She agrees to this plan. Oct,Hyperglycemia (ICD-10 - R73.9)Discussed blood sugar results with patient today. Glucose is 114. HgA1C is 6.0 which has gone up since last seen. She admits to eating alot and doing alot of cooking. I highly encouraged her to avoideating the pastas and sweets. She does eat alot of pasta in the winter. Recommend she eat a proteinand dark green vegetable instead. She would prefer a salad and is told that this is fine if she canput a dark green lettuce in it. If she is able to make these lifestyle changes then I would expect her A1C to improve. Oct,Hyperlipidemia (ICD-10 - E78.5)Discussed cholesterol results with patient today. Total is 240. HDL is 112. LDL is 113. Triglycerides are 73. VLDL is 14. I would like her to continue with above medication, again watch intake of carbs and sugars. Stay active. Oct,Vitamin D deficiency (ICD-10 - E55.9)Her Vitamin D level is 29.7. I did recommend that she start taking a Vitamin D supplement daily during the winter months. She can take 2000 IU per day. She would not need this during the summer. Oct,Weight gain (ICD-10 - R63.5)She voices that on her home scale she gained five pounds. All she does is eat and think about food. I suspect this may be contributing to her elevated blood pressure. She is encouraged to watch herintake of carbs and sugars. Stay active. She does want to lose weight and will begin watching her diet closer. I did provide her with a handout on foods that she should avoid and foods she should eat. Oct,epression (ICD-10 - F32.9)She does continue with above medication as directed. Oct,Vitamin B12 deficiency (ICD-10 - E53.8)Her B12 level is 390. Folate is 8.4. I would like her to continue with her B12 supplement. Her hemoglobin in the summer (2021) was 11.7 but is now 12.3, she is not anemic. 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 All questions she has about these screening results were answered. I do want her to continue to monitor her blood pressure dl sure that her readings are not consistently elevated. She is to keep me posted with these readings after she has 3-4 readings. [employer] Other 08-19-2022 [facility] Evaluation [facility]* Encounter Date Diagnosis Assessment Notes Treatment Notes Treatment Clinical Notes Apr, Depression (ICD-10 - F32.9) [employer] Other 06-30-2022 Evaluation note* Encounter Date Diagnosis Assessment Notes Treatment Notes Treatment Clinical Notes Mar, Family history of colonic polyps (ICD-10 - Z83.71) [employer] Other 06-23-2022 Evaluation note* Encounter Date Diagnosis Assessment Notes Treatment Notes Treatment Clinical Notes Mar, Hematuria (ICD-10 - R31.9) She has never seen blood in her urine. She had a complete hysterectomy in the past. I did explain to her that her urinalysis did show blood in the urine. I will have her provide a repeat urinalysis to see what this shows. She can call for results. Based on these results we will determine if she needs to see a urologist or not. I did recommend that she drink plenty of water prior to giving the urine sample. Mar,Hyperkalemia (ICD-10 - E87.5)Her potassium level was 5.2 We discussed that Lisinopril can make ones potassium level go up but she has been on this for a long time. The lab draw itself can make the potassium level go up. I would like to repeat lab to be sure this level has returned to normal. She can call for results. Mar,Hyperlipidemia (ICD-10 - E78.5)Discussed cholesterol results with patient today. Total is 241. HDL is 119. LDL is 110.4. Triglycerides are 58. I would like to see her LDL between 70-100. She is encouraged to watch her intake of carbs and sugars. Stay active as tolerated. Mar,Hypertension (ICD-10 - I10)Blood pressure is controlled. Continue with above medication daily as directed. Mar,Vitamin D deficiency (ICD-10 - E55.9)Her Vitamin D level is 39. She is not taking Vitamin D right now. Mar,Hyperglycemia (ICD-10 - R73.9)Discussed blood sugar results with patient today. Glucose is 122. HgA1C is 5.7 which is at the higher end of normal. Again, she is to continue to monitor her intake of carbs and sugars. Stay active. Mar,Vitamin B12 deficiency (ICD-10 - E53.8)Her Vitamin B12 level is 491. Continue with the same dose of B12. Mar,epression (ICD-10 - F32.9)Continue with above medication daily as directed. She feels the dose is adequate. 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 Creatinine is 1.03. EGFR is 52. Recommend she drink plenty of water daily. Mar,nemia (ICD-10 - D64.9)Her hemoglobin level is 11.7. Mar,Weight loss (ICD-10 - R63.4)She has lost weight since last seen. She voices that she likes to be around 130 pounds. She is not concerned about the weight loss. Her TSH is normal at 1.10. Mar,therShe did recently have an abnormal mammogram, but had additional views and they came back normal. She is due for a repeat colonoscopy in May (2021). If she does not hear from Dr. Spencer' office by the next time she is seen here then we will refer her back to gastro. She will see Dr. Hughes in June 2022, she follows with him for Prolia. [employer] Other 06-01-2022 Evaluation note* Encounter Date Diagnosis Assessment Notes Treatment Notes Treatment Clinical Notes Mar, Abnormal mammogram of left breas t (ICD-10 - R92.8) [employer] Other 03-30-2022 Evaluation note* Encounter Date Diagnosis Assessment Notes Treatment Notes Treatment Clinical Notes Dec, Hyperlipidemia (ICD-10 - E78.5) [employer] Other 12-16-2021 Evaluation note* Encounter Date Diagnosis Assessment Notes Treatment Notes Treatment Clinical Notes Sep, Hypertension (ICD-10 - I10) Blood pressure is controlled. Continue with above medication. Sep,Hyperlipidemia (ICD-10 - E78.5) Discussed cholesterol results with patient today. Total is 210. HDL is 108. LDL is 90. Triglycerides are 58. Her readings are at goal. She is to continue with above medication daily as directed. Sep,Vitamin D deficiency (ICD-10 - E55.9) Her Vitamin D level is 33.7. Will continue to monitor. Sep,Hyperglycemia (ICD-10 - R73.9) Discussed blood sugar results with patient today. Glucose is 117. HgA1C is 5.6. She is encouraged to watch her intake of carbs and sugars. Stay active. Sep,Weight gain (ICD-10 - R63.5) She has gained seven pounds since March (2020) She voices that she is not exercising but is moving and doing something all the time. She will continue to monitor her weight. Sep,epression (ICD-10 - F32.9) She does continue to use and benefit from the Zoloft. Sep,Vitamin B12 deficiency (ICD-10 - E53.8) She has not been taking B12. I explained to her that she is a little bit anemic. Her HGB is 11.3. B12 is 332. Folate is 10.3. I would like her to return to taking the B12 daily. 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 Hughes for evaluation. She voices that she did have a Prolia injection in his office. She has an appointment in December 2021 for her second shot and will go every six months. [employer] Other 12-19-2006 History general Narrative - Reported* Type Description Date Medical History Stress Test 09-21-06 [facility] (St & T wave changes, but no pattern of ischemia) Medical HistoryEchocardiogram [facility] 09-21-06 ( Mild Pulmonary HTN)Medical History Follows with Dr. Bryan for Pap and PelvicMedical Ucwissp2-85-[address] Ge (normal)Medical Rawvupl6-8-88 basal cell carcinomaon face removed by Dr. ZaidiMedical HistoryBilateral Carotid Dopscan 02-04-11[facility] [place] [facility] 0-1-70[place] HistoryChickenpox, Measles, MumpsMedical HistoryHearing TroubleMedical HistoryCT of the abdomen and pelvis 0-0-79Jlvqjqz HistoryPap Dr. Bryan 69-0-87Dwiutcu HistoryMammogram 08-18-13[place] [facility] [place] Medical HistoryFlu Shot 2012Medical HistoryOsteopenia with DEXA scans. Previous treatment with oral and later Reclast infusions. Drug [id number] and 2013 Surgical Historyright wrist surgery-Surgical Historytotal [id number] Surgical HistoryLeft Breast Retroareolar Ductal Excision; Dr. VillafanaVlypj12-08-57 Surgical HistoryColonoscopy, NormalSurgical Dwdbuuwfganuryvd50/2016 Surgical Historyannual exam08/2016Surgical Historycolonoscopy Dr Spencer05/06/17 Surgical Historymammogram -08/2017Hospitalization [id number] [employer] Other 12-19-2006 History general Narrative - Reported* Type Description Date Medical History Stress Test 09-21-06 [facility] (St & T wave changes, but no pattern of ischemia) Medical HistoryEchocardiogram [facility] 09-21-06 ( Mild Pulmonary HTN)Medical History Follows with Dr. Bryan for Pap and PelvicMedical Kclxxkg4-96-[address] Ge (normal)Medical Dqawrxo6-4-95 basal cell carcinomaon face removed by Dr. ZaidiMedical HistoryBilateral Carotid Dopscan 02-04-11; [facility] [place] [place] Echocardiogram [facility] 6-3-20Dtyzark HistoryChickenpox, Measles, MumpsMedical HistoryHearing TroubleMedical HistoryCT of the abdomen and pelvis 0-9-59Wirdnln HistoryPap Dr. Bryan 28-6-91Ujvvade HistoryMammogram 08-18-13; [facility] [place] Medical HistoryFlu Shot 2012Medical HistoryOsteopenia with DEXA scans. Previous treatment with oral and later Reclast infusions. Drug [id number] and 2013 Surgical Historyright wrist surgery7-Surgical Historytotal [id number] Surgical HistoryLeft Breast Retroareolar Ductal Excision; Dr. VillafanaPancn67-94-18 Surgical HistoryColonoscopy, Normal9-2007Surgical Xphauwcjbqdlwcmw88/2016 Surgical Historyannual exam08/2016Surgical Historycolonoscopy Dr Spencer/12/18 Surgical Historymammogram -08/2017Surgical HistoryColonoscopy, Dr. Denson, no further colonoscopy needed on this -[id number] History [id number] [facility] [employer] Other Evaluation noteNo InformationNortJefferson [facility] Hospital [employer] Other Evaluation noteNo assessment information available [facility] Work Phone: Evaluation note* Diagnosis Onset Date Resolution Status Depression acuteDizzinessacuteHyperglycemiaacuteHyperlipidemiaacuteHypertensionacuteLight- headed feelingacuteVitamin B12 deficiencyacuteVitamin D deficiencyacute [facility] Work Phone: Evaluation note* Diagnosis Age-related osteoporosis without current pathological fracture (CMS/HCC)- Primary Vitamin D deficiency documented in [facility] encounter [facility]* Diagnosis Balance disorder- Primary Cervicalgia documented in this encounter [facility]* Diagnosis Onychomycosis- Primary Dermatophytosis of nail documented in this encounter [facility] HealthcareEvaluation note* Diagnosis Nail deformity- Primary Unspecified disease of nail Onychomycosis Dermatophytosis of nail documented in this encounter [facility] HealthcareEvaluation note* Diagnosis Onset Date Resolution Status Admit Date Diarrhea acuteJanuary 2024 1:14pmIntermittent abdominal painacuteJanuary 2024 1:14pm [facility] Work Phone: Evaluation note* Diagnosis Onychomycosis Dermatophytosis of nail Nail deformity Unspecified disease of nail documented in this encounter [facility] HealthcareEvaluation note* Diagnosis Seborrheic keratosis- Primary Actinic keratosis Lentigines Capillary angioma Nevus, non-neoplastic History of basal cell carcinoma Personal history of other malignant neoplasm of skin [facility] [facility] HealthcareEvaluation note* Diagnosis Onset Date Resolution Status Admit Date Balance disorder acuteAugust 2024 10:18amDepressionacuteAugust 2024 10:18am HypercalcemiaacuteAugust 2024 10:18amHyperglycemiaacuteAugust 2024 10:18amHyperlipidemiaacuteAugust 2024 10:18amHypertensionacuteAugust 2024 10:18amOsteoporosisacuteAugust 2024 10:18amOther abnormal blood chemistryacuteAugust 2024 10:18amVitamin B12 deficiencyacuteAugust 2024 10:18am [facility] Work Phone: Evaluation note* Diagnosis Age-related osteoporosis without current pathological fracture- Primary Vitamin D deficiency documented in this encounter [facility]* Diagnosis Age-related osteoporosis without current pathological fracture- Primary documented in this encounter [facility] HealthcareHistory and physical note Author Vitaly Denson [facility] May 22, 2022 12:02pmNote Date/TimeAugust 2021 12:02pm[place] [address] Gastroenterology H&P Signed Patient: Bibi Gordillo MR#: [id number] : 1940 Acct:[id number] Age/Sex: 81 / F Adm Date: 2 Loc: Room: Type: [facility] Attending Dr: Vitaly Denson MD Copies to: MD Zafar Henriquez, Date of Service: 05/22/2022 HISTORY & PHYSICAL: Patient's history with special attention to the cardiovascular, pulmonary systems and the current problem was reviewed with the patient immediately prior to the procedure. Present medications and doses reviewed in the EMR. Allergies and pertinent laboratory tests were also re viewedat this time in the EMR. The physical examination, as below, was then performed. Indication, assessment and HPI: 81-year-old female presents for average risk screening colonoscopy Family history of GI malignancy? No PHYSICAL EXAMINATION Mouth and Pharynx : Moist mucus membranes, normal dentition Cardiac: Regular rate, regular rhythm Pulmonary: Clear to auscultation bilaterally, no wheezing Neurological: Alert and oriented x3, no focal deficits noted Abdomen: Abdomen soft, non-tender REVIEW OF SYSTEMS Constitutional: Denies malaise, fevers Cardiovascular: Denies chest pain, palpitations Respiratory: Denies shortness of breath, wheezing Gastrointestinal: Per HPI Genitourinary: Denies dysuria, polyuria Musculoskeletal: Denies joint swelling, joint stiffness Neurological: Denies numbness, tingling Integumentary: Denies rashes, skin lesions Endocrine: Denies fatigue, weight loss Written informed consent obtained from the patient. Risks (including but not limited to perforation, infection, bloating, bleeding, need for emergent surgeryand loss of life), benefits and alternatives explained and questions answered. The patient verbalized understanding. Based on history patient is an appropriate candidate for the procedure. Vitaly Denson MD Documented By: Vitaly Denson MD 05/22/22 1201 Signed By: <Electronically signed by Vitaly Denson MD> 05/22/22 1202 [facility] Work Phone: Reason for referral (narrative)No reason for referral information availableRegional [facility] Work Phone: Summary Purpose Family History Relationship Condition Age at Onset Recorded Date/T tom Not Specified Polyp of colon Unknown sisterPolyp of colonUnknown Relationship Condition Age at Onset Recorded Date/T tom Not Specified Polyp of colon Unknown sisterPolyp of colonUnknowngrandparentDeceasedUnknownNot SpecifiedHistory of strokeUnknownDeceasedUnknown Relationship Condition Age at Onset Recorded Date/T tom mother Polyp of colon Unknown sisterPolyp of colonUnknowngrandparentDeceasedUnknownmotherHistory of stroke UnknownDeceasedUnknown Advance Directives Advance Directive Response Recorded Date/ Time Advance Directives No August 3:57pm Advance Directive Response Recorded Date/ Time Advance Directives No August 2:57pm Chief Complaint and Reason for Visit Chief Complaint r92.8 See order Family Hx Colon Polyps Family Hx Colon Polyps Chief Complaint E78.5 E55.9 R73.9 E5 3.8 Z79.899 Chief Complaint E78.5 E55.9 R73.9 E5 3.8 Z79.899 m81.0 e55.9 r94.4 Chief Complaint Screening See order Chief Complaint See order M81.0 E55.9 Chief Complaint M81.0 E55.9 M81.0 e55.9 r94.4 Chief Complaint M81.0 See order Chief Complaint m81.0 e55.9 r94.4 M81.0 b35.1 Screening Chief Complaint M81.0 b35.1 Screening See order Chief Complaint b35.1 Screening See order review labsReason for VisitDepression Dizziness Hyperglycemia Hyperlipidemia Hypertension Light-headed feeling Vitamin B12 deficiency Vitamin D deficiency Chief Complaint Screening See order review labs z79.899Reason for VisitDepression Dizziness Hyperglycemia Hyperlipidemia Hypertension Light-headed feeling Vitamin B12 deficiency Vitamin D deficiency Chief Complaint Screening See order review labs z79.899 i10 z79.899 K59.00Reason for VisitDepression Dizziness Hyperglycemia Hyperlipidemia Hypertension Light-headed feeling Vitamin B12 deficiency Vitamin D deficiency Chief Complaint See order review labs z79.899 i10 z79.899 K59.00 K59.0Reason for VisitDepression Dizziness Hyperglycemia Hyperlipidemia Hypertension Light-headed feeling Vitamin B12 deficiency Vitamin D deficiency Chief Complaint See order review labs z79.899 i10 z79.899 K59.00 K59.0 E55.9Reason for VisitDepression Dizziness Hyperglycemia Hyperlipidemia Hypertension Light-headed feeling Vitamin B12 deficiency Vitamin D deficiency Chief Complaint Admit Date M81.0 August 01, 2024 1 1:00am Referred by Dr Reyes: constipation Lars yury 2024 1:14pm Reason for Visit Admit Date Diarrhea October 25, 2024 1 :14pm Intermittent abdominal pain October 1:14pm Reason for Visit Admit Date Diarrhea October 25, 2024 1 :14pm Intermittent abdominal pain October 1:14pm Irritable bowel syndrome with diarrhea J anuary 2024 1:14pm Microscopic colitis October 25, 2024 1 :14pm Chief Complaint Admit Date Referred by Dr Reyes: constipation Lars yury 2024 1:14pm e55.9 e78.5 z79.899 October 26, 2024 8 :10am review labs November 02, 2024 9 :03am Reason for Visit Admit Date Diarrhea October 25, 2024 1 :14pm Intermittent abdominal pain October 1:14pm Irritable bowel syndrome with diarrhea J anuary 2024 1:14pm Microscopic colitis October 25, 2024 1 :14pm Hyperglycemia November 02, 2024 9 :03am Hyperlipidemia November 02, 2024 9 :03am Hypertension November 02, 2024 9 :03am Irritable bowel syndrome with diarrhea J anuary 2024 9:03am Vitamin B12 deficiency November 02 9:03am Vitamin D deficiency November 02, 2024 9:03am Chief Complaint Admit Date M81.0 January 30, 2025 10: 33am e53.8 February 01, 2025 8:06am Chief Complaint Admit Date M81.0 January 30, 2025 10: 33am e53.8 February 01, 2025 8:06am Screening March 29, 2025 8:48 am Chief Complaint Admit Date Screening March 29, 2025 8:48 am r35.1 e53.8 z79.899 e78.5 r35.1 r63.5 r7 3.9 May 03, 2025 8:16am Chief Complaint Admit Date Screening March 29, 2025 8:48 am r35.1 e53.8 z79.899 e78.5 r35.1 r63.5 r7 3.9 May 03, 2025 8:16am review labs May 10, 2025 10: 18am Reason for Visit Admit Date Balance disorder May 10, 2025 10: 18am Depression May 10, 2025 10: 18am Hypercalcemia May 10, 2025 10: 18am Hyperglycemia May 10, 2025 10: 18am Hyperlipidemia May 10, 2025 10: 18am Hypertension May 10, 2025 10: 18am Osteoporosis May 10, 2025 10: 18am Other abnormal blood chemistry May 10:18am Vitamin B12 deficiency May 10, 2025 10:18am Chief Complaint Admit Date r35.1 e53.8 z79.899 e78.5 r35.1 r63.5 r7 3.9 May 03, 2025 8:16am review labs May 10, 2025 10: 18am See order July 10, 2025 7: 44am Chief Complaint Admit Date r35.1 e53.8 z79.899 [...] 8:02am Osteoporosis August 01, 2025 8 :02am Additional Source Comments INFORMATION SOURCE (unrecogn ized section and content) DATE CREATED AUTHOR 03/25/[address] [facility] DATE CREATED AUTHOR AUTHOR'S ORGANIZ ATION 07/04/2024 [facility] DATE CREATED AUTHOR AUTHOR'S ORGANIZ ATION 07/18/2025 [facility] DATE CREATED AUTHOR AUTHOR'S ORGANIZ ATION 08/02/2025 [facility] REASON FOR VISIT (unrecogniz ed section and content) ReasonCommentsOsteoporosisFollow-upSpecialtyDiagnoses / ProceduresReferred By ContactReferred To ContactPhysical Therapy Diagnoses Dizziness and giddiness Procedures OR PHYSICAL THERAPY EVALUATION LOW COMPLEX 20 MINS Zafar Reyes MD [address] [place] [address] Darrell Costello, PT [address] [place] [address] Referral IDStatusReasonStart DateExpiration DateVisits RequestedVisits [id number] Follow-upLABReasonCommentsSkin CheckReasonCommentsOsteoporosisFollow-uplabReason Onset DateCommentsAdvice Only07/30/2025 Care Teams (unrecognized sec tion and content) Team Status: Active Member Role Status Idalmis Reyes DO Primary Care Provider Active Team Status: Inactive Member Role Status Dates Zafar Reyes DO Primary Care Provider Active S tart: March 29, 2025 End: March 29, 2025Referral SelfAttending ProviderActiveStart: March 29, 2025 End: March 29, 2025 Team Status: Inactive Member Role Status Idalmis Reyes DO Primary Care Provider Active S tart: May 03, 2025 End: May 03, 2025Zafar Reyes DOAttending ProviderActiveStart: May 03, 2025 End: May 03, 2025 Team Status: Active Member Role Status Idalmis Reyes DO Primary Care Provider Active S tart: January 01, 2025 Estella Nobleending ProviderActiveStart: January 01, 2025 Team Status: Active Member Role Status Idalmis Reyes DO Primary Care Provider Active S tart: January 30, 2025 Maxim Hughes MDAttending Provider, Referring ProviderActiveStart: January 30, 2025 Team Status: Inactive Member Role Status Idalmis Reyes DO Primary Care Provide r, Attending Provider Active Start: February 01, 2025 End: February 01, 2025 Team Status: Inactive Member Role Status Idalmis Reyes DO Primary Care Provider Active S tart: October 25, 2024 End: October 25park Denson MDAttending ProviderActiveStart: October 25, 2024 End: October 25, 2024 Team Status: Inactive Member Role Status Idalmis Reyes DO Primary Care Provide r, Attending Provider Active Start: October 26, 2024 End: October 26, 2024 Team Status: Inactive Member Role Status Idalmis Reyes DO Primary Care Provide r, Attending Provider Active Start: November 02, 2024 End: November 02, 2024 Team Status: Active Member Role Status Idalmis Reyes DO Primary Care Provider Active S tart: August 01, 2024 Maxim Hughes MDAttending Provider, Referring ProviderActiveStart: August 01, 2024 Team Status: Inactive Member Role Status Dates Zafar Reyes DO Primary Care Provide r, Attending Provider Active Start: January 28, 2024 End: January 28, 2024 Team Status: Inactive Member Role Status Dates Zafar Reyes DO Primary Care Provide r, Referring Provider Active Start: March 28, 2024 End: March 28eferral SelfAttending ProviderActiveStart: March 28, 2024 End: March 28, 2024 Team Status: Inactive Member Role Status Dates Zafar Reyes DO Primary Care Provide r, Attending Provider Active Start: April 24, 2024 End: April 24, 2024 Team Status: Inactive Member Role Status Idalmis Reyes DO Primary Care Provide r, Attending Provider Active Start: April 27, 2024 End: April 27, 2024 Team Status: Active Member Role Status Idalmis Reyes DO Primary Care Provider Active S tart: January 26, 2024 Marilu Noble Provider, Referring ProviderActiveStart: January 26, 2024 Team Status: Inactive Member Role Status Idalmis Reyes DO Primary Care Provider Active S tart: January 18, 2024 End: January 17hmEstella Simentalending ProviderActiveStart: January 18, 2024 End: January 18, 2024 Team Status: Active Member Role Status Idalmis Reyes DO Primary Care Provider Active Marilu Noble ProviderActive Team Status: Inactive Member Role Status Idalmis Reyes DO Primary Care Provider, Attending Pro vider Active Team Status: Inactive Member Role Status Idalmis Reyes DO Primary Care Provider Active Marilu Henriquez ProviderActive Team Status: Inactive Member Role Status Dates Zafar Reyes DO Primary Care Provider Active Marliu Noble ProviderActive Team Status: Inactive Member Role Status Idalmis Reyes DO Primary Care Provider, Referring Pro vider Active Referral SelfAttending ProviderActive Team Status: Inactive Member Role Status Dates Maxim Hughes MD Attending Provider Active Brando Johnson ProviderActive Team Status: Inactive Member Role Status Idalmis Reyes DO Primary Care Provide r, Attending Provider Active Start: May 18, 2024 End: May 18, 2024 Team Status: Inactive Member Role Status Dates Zafar Olivaresnel DO Primary Care Provide r, Attending Provider Active Start: June 21, 2024 End: June 21, 2024 Team Status: Active Member Role Status Dates Zafar Olivaresnel DO Primary Care Provide r, Attending Provider Active Start: June 21, 2024 Team Status: Inactive Member Role Status Dates Zafar Reyes DO Primary Care Provide r, Attending Provider Active Start: June 26, 2024 End: June 26, 2024Team MemberRelationshipSpecialtyStart DateEnd Date Zafar Reyes MD [address] [place] [address] PCP - [facility]12/08/23Team MemberRelationshipSpecialtyStart DateEnd Date Zafar Reyes MD [address] [place] [address] PCP - [facility]12/08/23 Team Status: Inactive Member Role Status Dates Zafar Reyes DO Primary Care Provider Active S tart: July 18, 2024 End: July 18hmMarilu Simental ProviderActiveStart: July 18, 2024 End: July 18, 2024Team MemberRelationshipSpecialtyStart DateEnd Date Zafar Reyes MD [address] [place] [address] PCP - [facility]12/08/23Team MemberRelationshipSpecialtyStart DateEnd Date Zafar Reyes MD [address] [place] [address] PCP - [facility]12/08/23Team MemberRelationshipSpecialtyStart DateEnd Date Zafar Reyes MD [address] [place] [address] PCP - GeneralFamily Medicine3Team MemberRelationshipSpecialtyStart DateEnd Date Zafar Reyes MD [address] [place] [address] PCP - GeneralFamily Medicine12/08/23Team MemberRelationshipSpecialtyStart DateEnd Date Zafar Reyes MD [address] [place] [address] PCP - GeneralFamily Medicine12/08/23Team MemberRelationshipSpecialtyStart DateEnd Date Zafar Reyes MD [address] [place] [address] PCP - GeneralFamily Medicine12/08/23Team MemberRelationshipSpecialtyStart DateEnd Date Zafar Reyes MD [address] [place] [address] PCP - GeneralFamily Medicine12/08/23Team MemberRelationshipSpecialtyStart DateEnd Date Zafar Reyes MD [address] [place] [address] [place] [address] PCP - GeneralFamily Medicine12/08/23Team MemberRelationshipSpecialtyStart DateEnd Date Zfaar Reyes MD [address] [place] [address] [place] [address] PCP - GeneralFamily Medicine12/08/23Team MemberRelationshipSpecialtyStart DateEnd Date Zafar Reyes MD [address] [place] [address] [place] [address] PCP - GeneralFamily Medicine12/08/23Team MemberRelationshipSpecialtyStart DateEnd Date Zafar Reyes MD [address] [place] [address] PCP - [facility]12/08/23 Team Status: Active Member Role Status Dates Zafar Reyes DO Primary Care Provider Active S tart: January 30, 2025 Justinadenny Hughes MDAttending ProviderActiveStart: January 30, 2025 Ahdenny Hughes MDReferring ProviderActiveStart: January 30, 2025 Team Status: Inactive Member Role Status Dates Zafar Reyes DO Primary Care Provider Active S tart: February 01, 2025 End: February 01, 2025Daraulito Reyes DOAttending ProviderActiveStart: February 01, 2025 End: February 01, 2025 Team Status: Inactive Member Role Status Dates Zafar Reyes DO Primary Care Provider Active S tart: May 10, 2025 End: May 10, 2025Daraulito Reyes DOAttending ProviderActiveStart: May 10, 2025 End: May 10, 2025 Team Status: Inactive Member Role Status Dates Zafar Reyes DO Primary Care Provider Active S tart: July 10, 2025 End: July 10hmradha Hughes MDAttending ProviderActiveStart: July 10, 2025 End: July 10, 2025Team MemberRelationshipSpecialtyStart DateEnd Date Zafar Reyes MD [address] [place] [address] PCP - [facility]12/08/23Team MemberRelationshipSpecialtyStart DateEnd Date Zafar Reyes MD [address] [place] [address] [facility]12/08/23Team MemberRelationshipSpecialtyStart DateEnd Date Zafar Reyes MD [address] [place] [address] PCP - General acute hospital Medicine12/08/23Team MemberRelationshipSpecialtyStart DateEnd Date Zafar Reyes MD [facility] [address] [place] [address] [place] [address] [facility] Team Status: Active Member Role/Relationship Status Idalmis Reyes DO Primary Care Provider Active Team Status: Inactive Member Role/Relationship Status Idalmis Reyes DO Primary Care Provider Active S tart: May 03, 2025 End: May 03, 2025Daraulito Reyes DOAttyanet ProviderActiveStart: May 03, 2025 End: May 03, 2025 Team Status: Inactive Member Role/Relationship Status Idalmis Reyes DO Primary Care Provider Active S tart: May 10, 2025 End: May 10, 2025DaHarish Zheng ProviderActiveStart: May 10, 2025 End: May 10, 2025 Team Status: Inactive Member Role/Relationship Status Idalmis Reyes DO Primary Care Provider Active S tart: July 10, 2025 End: July 10hmMarilu Simental ProviderActiveStart: July 10, 2025 End: July 10, 2025 Team Status: Active Member Role/Relationship Status Idalmis Reyes DO Primary Care Provider Active S tart: July 31, 2025 Maxim Hughes MDAttending ProviderActiveStart: July 31, 2025 Eda Nobleing ProviderActiveStart: July 31, 2025 Team Status: Inactive Member Role/Relationship Status Idalmis Reyes DO Primary Care Provider Active S tart: August 01, 2025 End: August 01, 2025Harish Johnson ProviderActiveStart: August 01, 2025 End: August 01, 2025 Goals (unrecognized section and content) Goals may be documented in a n alternate section FOR RECORDS PERTAINING TO PATIENTS WHO ARE OR HAVE BEEN ENROLLED IN A CHEMICAL DEPENDENCY/SUBSTANCEABUSE PROGRAM, SOME INFORMATION MAY BE OMITTED. This clinical summary was aggregated from multiple sources. Caution should be exercised in using it in the provision of clinical care. This summary normalizes information from multiple sources, and as a consequence, information in this document may materially change the coding, format and clinical context of patient data. In addition, data may be omitted in some cases. CLINICAL DECISIONS SHOULD BE BASED ON THE PRIMARY CLINICAL RECORDS. [employer] [facility]. provides no warranty or guarantee of the accuracy or completeness of information in this document.
== END 2025-08-07 09:51 | disposition home or self-care (01) ==
LOC: RAD 09:50
PROVIDERS: PCP Family Medicine; Visit Provider Internal Medicine
DX: M81.0 Age-related osteoporosis without current pathological fracture (principal); M85.88 Other specified disorders of bone density and structure, other site
CPT/HCPCS: 77080